=== PATIENT | female | born 1945 | race Caucasian/White ===

== ENCOUNTER 2020-03-02 14:51 | Outpatient (REF) | payer MEDICARE, BC, SELFPAY ==
--- NOTE | 2020-03-02 15:00 | MM_ITS ---
EXAMINATION: MM DIAGNOSTIC DIGITAL BREAST TOMOSYNTHESIS, BILATERAL US DIAGNOSTIC ULTRASOUND BREAST, LEFT CLINICAL INFORMATION: 74-year-old with palpable lump upper outer left breast for 2-3 months. Family history breast cancer grandmother and cousin. No prior personal history breast surgery. The lifetime risk of breast cancer based on the Tyrer-Cuzick Model is 7%. COMPARISON: Mammography: 01/25/2017; outside mammography 02/04/2015, 02/04/2013 ([facility]). TECHNIQUE: Digital breast tomosynthesis is performed in both the craniocaudal and mediolateral oblique views along with computer-aided detection (CAD). Synthesized 2D images are generated from the tomosynthesis. Symptom marker placed on left. Ultrasound left breast is targeted to the area of clinical concern upper outer quadrant. Grayscale imaging and color Doppler are performed without and with harmonics. Additional imaging left axilla also included. FINDINGS: The breasts are heterogeneously dense, which may obscure small masses (ACR BI-RADS breast composition Category c). There is subtle architectural changes upper outer quadrant left breast in the area of clinical concern noted by the patient. Some mild skin retraction is also present. The remainder the left breast is unremarkable. No abnormal calcifications. The axilla is unremarkable. The right breast has chronic nodular asymmetry posterior 1:00 position similar to prior exams dating back to 2012. There is no developing density, interval mass, or architectural abnormality. No abnormal calcifications. Ultrasound left breast demonstrates irregular hypoechoic area 2:00 position mid upper outer quadrant measuring at least 2.8 x 1.6 cm and showing strong posterior acoustic shadowing. This corresponds to the area of both clinical concern and on mammography. Additional imaging left axilla shows no lymphadenopathy. Results are discussed with the patient at time of visit. Ultrasound-guided core biopsy left breast mass is recommended. Results and recommendation are called to office medical records analyst ([place]) for Dr. Neumann on 03/02/2020. MM/MM diagnostic mammo BI IMPRESSION: 1. Left: Architectural abnormality upper outer quadrant with ultrasound correlate corresponding to palpable fullness. 2. Right: No significant changes from prior studies. ASSESSMENT: BI-RADS 4: Suspicious RECOMMENDATION: Ultrasound-guided core biopsy left breast mass. This patient's information was entered into a reminder system with a target due date for their next mammogram.
== END 2020-03-02 14:52 | disposition home or self-care (01) ==
LOC: HO.MAMMO 14:51
PROVIDERS: PCP Internal Medicine; Visit Provider Internal Medicine
DX: N63.21 Unspecified lump in the left breast, upper outer quadrant (principal); Z85.3 Personal history of malignant neoplasm of breast
CPT/HCPCS: 76641; 77066

== ENCOUNTER 2020-03-02 14:51 | Outpatient (REF) | payer MEDICARE, BC, SELFPAY | END 2020-03-02 14:52 | disposition home or self-care (01) | LOC: HO.MAMMO 14:51 | PROVIDERS: PCP Internal Medicine; Visit Provider Internal Medicine | DX: Z13.89 Encounter for screening for other disorder (principal) ==

== ENCOUNTER → 2020-03-09 08:52 | Outpatient (BNVA) | payer MEDICARE, BC, SELFPAY | PROVIDERS: PCP Internal Medicine; Visit Provider Surgery | DX: N63.21 Unspecified lump in the left breast, upper outer quadrant (principal); R92.8 Other abnormal and inconclusive findings on diagnostic imaging of breast | CPT/HCPCS: 99202 ==

== ENCOUNTER 2020-03-10 09:40 | Outpatient (REF) | payer MEDICARE, BC, SELFPAY ==
--- NOTE | 2020-03-10 | US_ITS ---
PROCEDURE: US GUIDED BREAST BIOPSY, LEFT CLINICAL INFORMATION: Palpable mass COMPARISON: February 01, 2020 and January 25, 2017 PROCEDURAL DETAILS: The details of the procedure, as well as the risks, benefits, and alternatives to the procedure were explained to the patient in detail and all of her questions were answered, after which written informed consent was obtained. Site and side were confirmed. Prior to the procedure, sonography revealed hypoechoic lesion approximately 2:00 position 7 cm from the nipple with distal sound shadowing. A time-out was performed, the lesion intended for biopsy was targeted, and the skin of the left breast was then prepped and draped in the usual sterile fashion. Using sonographic guidance, sterile technique, and 1% lidocaine without epinephrine for local anesthesia, multiple automated core biopsies were obtained through the targeted area with a 14G spring loaded Achieve core biopsy device. There was real-time confirmation of appropriate needle passage. Sampling was documented. At the completion of tissue sampling, a single butterfly-shaped metallic clip was deposited at the biopsy site. There was no evidence of immediate complication. SPECIMEN: An appropriate sample was obtained. DIGITAL POST-PROCEDURE MAMMOGRAPHY: Breast density: The tissue is extremely dense, which lowers the sensitivity of mammography. BI-RADS version 5, category D. There are no new mammographic findings demonstrated. The postprocedure 2-view direct digital mammogram reveals satisfactory positioning of the biopsy clip. Clip lies about the superior medial aspect of the spiculated mass. The patient tolerated the procedure well and, after assuring adequate hemostasis, was discharged in good condition after reviewing postbiopsy breast care instructions. Final pathology results are pending. US/US breast ndl core biopsy LT IMPRESSION: 1. No immediate complication from ultrasound-guided percutaneous biopsy left breast. 2. Ultrasound was used to localize and guide marker clip placement. 3. The 2-view direct digital postprocedure mammogram reveals satisfactory positioning of the biopsy clip. 4. Final pathology results are pending. A separate report with final recommendations will be issued once these results are made available.
== END 2020-03-10 09:41 | disposition home or self-care (01) ==
LOC: HO.MAMMO 09:40
PROVIDERS: PCP Internal Medicine; Visit Provider Surgery
DX: N63.21 Unspecified lump in the left breast, upper outer quadrant (principal); R92.8 Other abnormal and inconclusive findings on diagnostic imaging of breast
CPT/HCPCS: 19083; 77065; 88305; 88341; 88342; 88360

== ENCOUNTER → 2020-03-16 10:36 | Outpatient (BNVA) | payer MEDICARE, BC, SELFPAY | PROVIDERS: PCP Internal Medicine; Visit Provider Surgery | DX: C50.919 Malignant neoplasm of unspecified site of unspecified female breast (principal) | CPT/HCPCS: 99212 ==

== ENCOUNTER 2020-03-21 10:51 | Outpatient (REF) | payer MEDICARE, BC, SELFPAY | END 2020-03-21 10:52 | disposition home or self-care (01) | LOC: HO.LAB 10:51 | PROVIDERS: Visit Provider Hospitalist | DX: R30.0 Dysuria (principal) | CPT/HCPCS: 87086; 87088; 87186 ==

== ENCOUNTER 2020-04-07 06:55 | Day surgery (SDC) | payer MEDICARE, BC, SELFPAY ==
[2020-03-30 13:39] VITALS: BMI 21.0
--- NOTE | 2020-04-05 14:28 | P.CONAN_ITS ---
Documented by User: Azra Benavidez 04/05/20 14:31 HPI - Anesthesia Eval Consult details Narrative: 74yo F for L Breast Biopsy Needle Localization [place] Node PMFSH Past Medical History Medical History Breast mass, left Depression Fecal incontinence Goiter, nodular History of alcohol dependence History of shingles Hoarseness Hx: UTI (urinary tract infection) Hyperlipidemia Lab test negative for COVID-19 virus Mammogram declined Osteoporosis Seizures Family History Family History Father Pulmonary fibrosis HTN (hypertension) CAD (coronary artery disease) Mother CAD (coronary artery disease) HTN (hypertension) COPD (chronic obstructive pulmonary disease) Pancreatitis Maternal Grandmother History of breast cancer Family/Other History of breast cancer Surgical History Surgical History History of cataract surgery History of colonoscopy History of foot surgery History of tonsillectomy History of tubal ligation Social History Social History Are you a primary manager home healthcare to a significant other at home: No Do you presently have visiting nurse or other home services: No Alcohol intake: former Smoking Status: Former smoker Smoked in Last 30 Days: No Smoking Quit Date: age 37 Use of substances other than those prescribed or required for medical reasons: No Advance Directives Information Provided: No Recently lost weight without trying: No Meds Allergies Allergy/AdvReac Type Severity Reaction Status Date / Time procaine [From Novocain] Allergy Intermediate Swelling Verified 03/30/20 14:22 Sulfa (Sulfonamide Allergy Intermediate Itching Verified 03/30/20 14:22 Antibiotics) Home Medications Medication Instructions Recorded Confirmed Type fluoxetine 10 mg capsule 10 mg PO DAILY 01/20/20 03/30/20 History fluoxetine 20 mg capsule 20 mg PO DAILY 01/20/20 03/30/20 History flu vacc [id number](65yr up)-PF 240 ml IM 03/21/20 History mcg/0.7 mL intramuscular syringe Exam Exam Date and Time: April 05, 2020 1428 Height,Weight and Vital Signs: Height 5 ft 3 in Weight 53.977 kg Pertinent Lab Results Pertinent Lab Results: Laboratory Tests 12/16/19 12/16/19 08:58 08:58 WBC 7.1 Hgb 12.4 Hct 38.0 Plt Count 336 Sodium 138 Potassium 3.9 Chloride 104 BUN 30 H Creatinine 0.71 Assessment and Plan Assessment Anesthesia Assessment: Chart Reviewed Documented by User: Kamar Ocasio 04/07/20 11:24 [facility] Past Medical History Medical History Breast mass, left Depression Fecal incontinence Goiter, nodular History of alcohol dependence History of shingles Hoarseness Hx: UTI (urinary tract infection) Hyperlipidemia Lab test negative for COVID-19 virus Mammogram declined Osteoporosis Seizures Family History Family History Father Pulmonary fibrosis HTN (hypertension) CAD (coronary artery disease) Mother CAD (coronary artery disease) HTN (hypertension) COPD (chronic obstructive pulmonary disease) Pancreatitis Maternal Grandmother History of breast cancer Family/Other History of breast cancer Family history of problems with anesthesia: No Surgical History Surgical History History of cataract surgery History of colonoscopy History of foot surgery History of tonsillectomy History of tubal ligation History of Problems with Anesthesia: No Social History Social History Are you a primary manager home healthcare to a significant other at home: No Do you presently have visiting nurse or other home services: No Alcohol intake: former Smoking Status: Former smoker Smoked in Last 30 Days: No Smoking Quit Date: age 37 Use of substances other than those prescribed or required for medical reasons: No Advance Directives Information Provided: No Recently lost weight without trying: No Meds Allergies Allergy/AdvReac Type Severity Reaction Status Date / Time procaine [From Novocain] Allergy Intermediate Swelling Verified 03/30/20 14:22 Sulfa (Sulfonamide Allergy Intermediate Itching Verified 03/30/20 14:22 Antibiotics) Home Medications Medication Instructions Recorded Confirmed Type fluoxetine 10 mg capsule 10 mg PO DAILY 01/20/20 03/30/20 History fluoxetine 20 mg capsule 20 mg PO DAILY 01/20/20 03/30/20 History flu vacc [id number](65yr up)-PF 240 ml IM 03/21/20 History mcg/0.7 mL intramuscular syringe Exam Airway Mallampati Class: I Neck ROM: Full Loose/Missing/Broken Teeth: Yes Heart: ok Lungs: ok Assessment and Plan Assessment Anesthesia Assessment: Anesthesia Plan Discussed and Chart Reviewed Final Anesthetic Review NPO: Yes ASA Class: III Final Preanesthetic Review: No Changes in Pt Med Stat, Meds/Allgs Chart Reviewed, Consent Obtained/Reviewed and Anes Risks/Benef Reviewed Patient Risk: Intermediate Procedure Risk: Low Anesthetic Plan Anesthetic Plan: GA and Agree w/ Assess. and Plan Disposition: Standard PACU
--- NOTE | 2020-04-07 | NM_ITS ---
EXAMINATION: NM LYMPH SCINTIGRAPHY CLINICAL INFORMATION: Left breast invasive ductal carcinoma. COMPARISON: None. TECHNIQUE: Following explaining left breast scintigraphy procedure, benefits and risks, a written consent was obtained. Patient was placed supine and 4% lidocaine cream was applied half an hour before the procedure. The area was then cleaned in an antiseptic manner with alcohol solution. 0.5 mCi of 99m technetium lymphoSeek divided in 4 equal doses was injected in 4 the quadrants around left breast areola with imaging obtained approximately 30 minutes later. Patient tolerated the procedure extremely well. FINDINGS: There is normal expected activity in 4 quadrants around the left breast. A solitary sentinel node is seen in the left anterior axilla. No additional abnormal activity seen. NM/NM sentinel node w imaging IMPRESSION: Solitary sentinel node seen in the left anterior axilla on left breast lymphoscintigraphy.
--- NOTE | 2020-04-07 | MM_ITS ---
EXAMINATION: MM GUIDED NEEDLE LOCALIZATION BREAST, LEFT MM NEEDLE LOCALIZATION SPECIMEN BREAST, LEFT CLINICAL INFORMATION: Left breast cancer. COMPARISON: 03/10/2020 and studies dating back to 02/04/2013. TECHNIQUE NEEDLE LOC: Proper informed consent is obtained from the patient after discussion of the procedure, potential risks and complications, and alternatives including declining the procedure today. Patient was given an opportunity for questions. The patient appeared to understand. The patient consented to the procedure and signed the consent form. GUIDANCE: Ultrasound APPROACH: Superior lateral. TARGET: Spiculated mass. ANESTHESIA: Lidocaine 1%: 2 mL. LOCALIZATION MARKER: [place] [facility]. 7 cm long The skin is prepped and local anesthesia administered. Real-time ultrasound imaging was performed for needle positioning through the targeted mass. The wire is hooked into position. [place] needle protector placed. The patient tolerated the procedure well and had no immediate complication. Two-view left breast mammogram performed post require placement in craniocaudal and 90-degree mediolateral views. The needle and hookwire are seen to be adjacent to the marker clip from previous biopsy and is through the spiculated portion of the mass. The breasts are heterogeneously dense (ACR BI-RADS breast density composition category C). TECHNIQUE SPECIMEN RADIOGRAPH: Imaging of the excised specimen is performed using digital mammography in 1 view. FINDINGS SPECIMEN RADIOGRAPH: The specimen shows the needle and hookwire are delivered intact. The biopsy clip marker and mass are identified in the specimen. Results were called to Dr. David Scott in the operating room at the time of imaging. MM/MM diagnostic mammo unilat LT IMPRESSION: 1. Status post left breast needle localization with wire hooked into position. 2. Postoperative specimen radiograph obtained.
[2020-04-07 07:45] VITALS: BP 118/70; PULSE 60; RESP 16; TEMP 36.7; O2SAT 98
[2020-04-07] MEDS: ceFAZolin Sodium/Dextrose,Iso 2 GM/50 ML PIGGYBACK IV (07:59)
[2020-04-07] MEDS: Lidocaine 4 % Cream KIT 1 APPL TOPICAL (07:59)
[2020-04-07] MEDS: Lactated Ringers 1,000 ML 100 ML IVCONT (08:00)
--- NOTE | 2020-04-07 08:09 | US_ITS ---
EXAMINATION: MM GUIDED NEEDLE LOCALIZATION BREAST, LEFT MM NEEDLE LOCALIZATION SPECIMEN BREAST, LEFT CLINICAL INFORMATION: Left breast cancer. COMPARISON: 03/10/2020 and studies dating back to 02/04/2013. TECHNIQUE NEEDLE LOC: Proper informed consent is obtained from the patient after discussion of the procedure, potential risks and complications, and alternatives including declining the procedure today. Patient was given an opportunity for questions. The patient appeared to understand. The patient consented to the procedure and signed the consent form. GUIDANCE: Ultrasound APPROACH: Superior lateral. TARGET: Spiculated mass. ANESTHESIA: Lidocaine 1%: 2 mL. LOCALIZATION MARKER: [place] Mammal[facility]. 7 cm long The skin is prepped and local anesthesia administered. Real-time ultrasound imaging was performed for needle positioning through the targeted mass. The wire is hooked into position. [place] needle protector placed. The patient tolerated the procedure well and had no immediate complication. Two-view left breast mammogram performed post require placement in craniocaudal and 90-degree mediolateral views. The needle and hookwire are seen to be adjacent to the marker clip from previous biopsy and is through the spiculated portion of the mass. The breasts are heterogeneously dense (ACR BI-RADS breast density composition category C). TECHNIQUE SPECIMEN RADIOGRAPH: Imaging of the excised specimen is performed using digital mammography in 1 view. FINDINGS SPECIMEN RADIOGRAPH: The specimen shows the needle and hookwire are delivered intact. The biopsy clip marker and mass are identified in the specimen. Results were called to Dr. David Scott in the operating room at the time of imaging. US/US breast needle loc LT IMPRESSION: 1. Status post left breast needle localization with wire hooked into position. 2. Postoperative specimen radiograph obtained.
--- NOTE | 2020-04-07 08:53 | MHC.SHP ---
Pre-Procedural Eval Section A The patient is an INPATIENT: No Changes since office visit: Yes Patient answered all questions; No Cold of Flu in the past 2 weeks, No New Medical Problems and No Changes in Medication The History & Physical has been completed within 30 days and I have reviewed it.: Yes Section B Chief Complaint: left breast ca Allergies: Allergies Allergy/AdvReac Type Severity Reaction Status Date / Time procaine [From Novocain] Allergy Intermediate Swelling Verified 03/30/20 14:22 Sulfa (Sulfonamide Allergy Intermediate Itching Verified 03/30/20 14:22 Antibiotics) Plan Diagnosis/Plan: Unchanged I have reviewed the history and physical and performed a pertinent physical examination on my patient. No changes have occurred unless specified.
--- NOTE | 2020-04-07 13:06 | P.BOP_ITS ---
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
--- NOTE | 2020-04-07 13:08 | P.OP_ITS ---
Operative Note Operative Note Date of Service: 04/07/20 Narrative: Preoperative diagnosis: Invasive ductal carcinoma left breast with lobular features Postoperative diagnosis: Same Procedure: Left breast lumpectomy with needle localization, sentinel node biopsy Surgeon: David Scott MD Metallurgical Inspector: Nava Gray Anesthesia: General LMA Indications for procedure: Patient was found to have a palpable mass in the upper outer quadrant on self examination. Subsequent mammogram and ultrasound confirmed a suspicious spiculated mass in the upper outer quadrant corresponding to the palpable mass. She underwent a ultrasound-guided core biopsy which confirmed invasive ductal carcinoma with lobular features. She presents now for left breast lumpectomy with needle localization, sentinel node biopsy. Operative findings: A large palpable masses noted in the upper outer quadrant measuring at least 3 cm corresponding to the site of needle localization. A single lymph node or cluster of lymph nodes was found in the high left axilla with radio activity of 191 counts sent as sentinel node 1. No other activity was noted following removal of this node. No other palpable nodes were identified. Specimen: Left breast lumpectomy, sentinel node 1., additional axillary contents. Estimated blood loss: 10 mL Complications: None Operative details: Patient was brought to the OR and placed in a supine position. After administering general anesthesia the patient's left breast was prepped with ChloraPrep and draped in sterile fashion. A surgical time-out was called and consent confirmed. Patient received preoperative antibiotics and Venodyne boots were in place. Local anesthesia consisting of 0.75% Sensorcaine was infiltrated in a curvilinear fashion emanating from the needle which was placed in the upper outer quadrant of the left breast. Incision was then made to include the needle track with a 15 blade. Incision was carried down through subcutaneous tissue. Superior and inferior skin flaps were then created with electrocautery. Beginning superiorly dissection was continued around the palpable mass to the chest wall including pectoralis fascia. Dissection was then continued medially again around the localizing needle down to chest wall. Inferior dissection was then performed dissecting around the palpable mass and localizing wire down to chest wall. The needle was then raised in the posterior dissection performed off the chest wall. Specimen was sent to pathology for further examination. Gamma probe was then used to localize area of radio activity in the left axilla. No activity was noted in the supraclavicular location. Using the same incision in the left upper outer quadrant access was gained to the left axilla. Blunt dissection was used to enter clavipectoral fascia in the axilla exam for palpable nodes. A single palpable node was identified high in the axilla. This was grasped using a [place] clamp. Gamma probe was used to identify the sentinel node which corresponded to the palpable node. Using electrocautery this node was excised. This was sent as sentinel node 1. Additional scanning with the gamma probe revealed no further radio activity. No further palpable nodes were identified. Wounds were irrigated with saline solution and suctioned dry. Wounds were checked for hemostasis. Deep breast tissue was closed using interrupted 3-0 Polysorb sutures. Superficial breast tissue was also reapproximated using interrupted 3 0 Polysorb sutures. Dermis was closed using interrupted 3-0 Polysorb sutures. Skin was then closed using a running subcuticular 4 0 Polysorb suture. Steri-Strips 4 x 4 gauze and Tegaderm were then applied. The patient tolerated the procedure well. Sponge, instrument, needle counts reported as correct. The patient was transferred to PACU in stable condition. Breast [place] Node Biopsy Substrate(s) used for sentinel node biopsy in the non-neoadjuvant setting: Radiotracer Substrate(s) used for sentinel node biopsy in the neoadjuvant setting: N/A All colored nodes or non-colored nodes present at the end of a dye filled lymphatic channel were removed, if dye was used as the substrate for localization: N/A All significantly radioactive nodes were removed, if radionuclide was used as the substrate for localization: Yes All palpably suspicious nodes were removed, if present: Yes If clips were placed in pathology-involved nodes, those nodes were identified and removed: N/A General Surg. - Synoptic Notes Breast [place] Node Biopsy Substrate(s) used for sentinel node biopsy in the non-neoadjuvant setting: Rad iotracer Substrate(s) used for sentinel node biopsy in the neoadjuvant setting: N/A All colored nodes or non-colored nodes present at the end of a dye filled lympha tic channel were removed, if dye was used as the substrate for localization: N/A All significantly radioactive nodes were removed, if radionuclide was used as the substrate for localization: Yes All palpably suspicious nodes were removed, if present: Yes If clips were placed in pathology-involved nodes, those nodes were identified and removed: N/A
[2020-04-07 13:14] VITALS: BP 129/64; PULSE 89; RESP 16; TEMP 36.3; O2SAT 100
[2020-04-07 13:19] VITALS: BP 142/68; PULSE 77; RESP 16; O2SAT 100
[2020-04-07 13:24] VITALS: BP 126/64; PULSE 76; RESP 16; O2SAT 100
[2020-04-07 13:29] VITALS: BP 118/49; PULSE 76; RESP 16; O2SAT 100
[2020-04-07 13:44] VITALS: BP 127/66; PULSE 70; RESP 16; TEMP 36.1; O2SAT 99
[2020-04-07] MEDS: Acetaminophen 325 MG TABLET 650 MG PO (13:51)
== END 2020-04-07 14:26 | disposition home or self-care (01) ==
PROVIDERS: PCP Internal Medicine; Visit Provider Surgery
PROC: (CPT 19301; principal; 2020-04-07 11:00)
PROC: (CPT 19301; 2020-04-07 11:00)
DX: C50.412 Malignant neoplasm of upper-outer quadrant of left female breast (principal); C77.3 Secondary and unspecified malignant neoplasm of axilla and upper limb lymph nodes; Z17.0 Estrogen receptor positive status [ER+]; F32.9 Major depressive disorder, single episode, unspecified; M81.0 Age-related osteoporosis without current pathological fracture; R49.0 Dysphonia; Z79.899 Other long term (current) drug therapy; Z88.2 Allergy status to sulfonamides; Z86.19 Personal history of other infectious and parasitic diseases; Z87.891 Personal history of nicotine dependence; Z88.8 Allergy status to other drugs, medicaments and biological substances
CPT/HCPCS: 19301; 38525; 19285; 77065; 78195; 88305; 88307; 88329; 88342; 88360; A4648; A9520; J0461; J0690; J3010

== ENCOUNTER → 2020-04-15 09:09 | Outpatient (BNVA) | payer MEDICARE, BC, SELFPAY | PROVIDERS: PCP Internal Medicine; Visit Provider Surgery | DX: C50.912 Malignant neoplasm of unspecified site of left female breast (principal) | CPT/HCPCS: 99212 ==

== ENCOUNTER → 2020-04-29 10:52 | Outpatient (BNVA) | payer MEDICARE, BC, SELFPAY | PROVIDERS: PCP Internal Medicine; Visit Provider Surgery | DX: C50.912 Malignant neoplasm of unspecified site of left female breast (principal) | CPT/HCPCS: 99212 ==

== ENCOUNTER 2020-05-09 06:42 | Day surgery (SDC) | payer MEDICARE, BC, SELFPAY ==
--- NOTE | 2020-05-05 12:37 | HO.ANESPROP2 ---
Documented by User: Azra Benavidez 05/05/20 12:41 HPI - Anesthesia Eval Consult details Narrative: 74yo F for Axillary Node Dissection s/p breast bx and needle loc with GA-LMA 3 on 04/07/20 [facility] Past Medical History Medical History Breast mass, left Depression Fecal incontinence Goiter, nodular History of alcohol dependence History of shingles Hoarseness Hx: UTI (urinary tract infection) Hyperlipidemia Lab test negative for COVID-19 virus Mammogram declined Osteoporosis Seizures Family History Family History Father Pulmonary fibrosis HTN (hypertension) CAD (coronary artery disease) Mother CAD (coronary artery disease) HTN (hypertension) COPD (chronic obstructive pulmonary disease) Pancreatitis Maternal Grandmother History of breast cancer Family/Other History of breast cancer Surgical History Surgical History History of cataract surgery History of colonoscopy History of foot surgery History of tonsillectomy History of tubal ligation Social History Social History Alcohol intake: former Smoking Status: Former smoker Use of substances other than those prescribed or required for medical reasons: No Advance Directives: No Advance Directives Information Provided: Yes Advance Directives on File: No Meds Allergies Allergy/AdvReac Type Severity Reaction Status Date / Time procaine [From Novocain] Allergy Intermediate Swelling Verified 05/09/20 07:17 Sulfa (Sulfonamide Allergy Intermediate Itching Verified 05/09/20 07:17 Antibiotics) Home Medications Medication Instructions Recorded Confirmed Type fluoxetine 10 mg capsule 10 mg PO DAILY 01/20/20 04/29/20 History fluoxetine 20 mg capsule 20 mg PO DAILY 01/20/20 04/29/20 History flu vacc [id number](65yr up)-PF 240 ml IM 03/21/20 04/29/20 History mcg/0.7 mL intramuscular syringe Exam Exam Date and Time: May 05, 2020 1237 Pertinent Lab Results Pertinent Lab Results: Laboratory Tests 12/16/19 12/16/19 08:58 08:58 WBC 7.1 Hgb 12.4 Hct 38.0 Plt Count 336 Sodium 138 Potassium 3.9 Chloride 104 BUN 30 H Creatinine 0.71 Assessment and Plan Assessment Anesthesia Assessment: Chart Reviewed Documented by User: Tejinder Jerry 05/09/20 08:37 PMFSH Past Medical History Medical History Breast mass, left Depression Fecal incontinence Goiter, nodular History of alcohol dependence History of shingles Hoarseness Hx: UTI (urinary tract infection) Hyperlipidemia Lab test negative for COVID-19 virus Mammogram declined Osteoporosis Seizures Family History Family History Father Pulmonary fibrosis HTN (hypertension) CAD (coronary artery disease) Mother CAD (coronary artery disease) HTN (hypertension) COPD (chronic obstructive pulmonary disease) Pancreatitis Maternal Grandmother History of breast cancer Family/Other History of breast cancer Surgical History Surgical History History of cataract surgery History of colonoscopy History of foot surgery History of tonsillectomy History of tubal ligation Social History Social History Alcohol intake: former Smoking Status: Former smoker Use of substances other than those prescribed or required for medical reasons: No Advance Directives: No Advance Directives Information Provided: Yes Advance Directives on File: No Meds Allergies Allergy/AdvReac Type Severity Reaction Status Date / Time procaine [From Novocain] Allergy Intermediate Swelling Verified 05/09/20 07:17 Sulfa (Sulfonamide Allergy Intermediate Itching Verified 05/09/20 07:17 Antibiotics) Home Medications Medication Instructions Recorded Confirmed Type fluoxetine 10 mg capsule 10 mg PO DAILY 01/20/20 04/29/20 History fluoxetine 20 mg capsule 20 mg PO DAILY 01/20/20 04/29/20 History flu vacc [id number](65yr up)-PF 240 ml IM 03/21/20 04/29/20 History mcg/0.7 mL intramuscular syringe Exam Airway Mallampati Class: II TM Dist: >3cm Neck ROM: Full Partial: Upper and Lower
[2020-05-09] VITALS (8 sets, daily range): BP systolic 117–144; BP diastolic 64–77; PULSE 68–80; RESP 15–18; TEMP 36.6–37.4; O2SAT 96–100; BMI 22.1
--- NOTE | 2020-05-09 07:12 | MHC.SHP ---
Pre-Procedural Eval Section A The patient is an INPATIENT: No Changes since office visit: Yes Patient answered all questions; No Cold of Flu in the past 2 weeks, No New Medical Problems and No Changes in Medication The History & Physical has been completed within 30 days and I have reviewed it.: Yes Section B Chief Complaint: Left Breat Invasive Ductal Carcinoma Allergies: Allergies Allergy/AdvReac Type Severity Reaction Status Date / Time procaine [From Novocain] Allergy Intermediate Swelling Verified 03/30/20 14:22 Sulfa (Sulfonamide Allergy Intermediate Itching Verified 03/30/20 14:22 Antibiotics) Plan Diagnosis/Plan: Unchanged I have reviewed the history and physical and performed a pertinent physical examination on my patient. No changes have occurred unless specified.
[2020-05-09] MEDS: Lactated Ringers 1,000 ML 100 ML IVCONT (07:35)
--- NOTE | 2020-05-09 09:21 | P.CONAN_ITS ---
[facility] Active Problems Active Problems: All Active Problems (Updated 04/15/20 @ 10:04 by David quiñonez MD) Abnormal mammogram of left breast (Acute) Invasive ductal carcinoma of breast (Acute) Dysuria (Acute) Acute sinusitis (Acute) Breast mass, left (Acute) Mammogram declined (Acute) Fecal incontinence (Acute) Hyperlipidemia (Acute) Hoarseness (Acute) Past Medical History Medical History Breast mass, left Depression Fecal incontinence Goiter, nodular History of alcohol dependence History of shingles Hoarseness Hx: UTI (urinary tract infection) Hyperlipidemia Lab test negative for COVID-19 virus Mammogram declined Osteoporosis Seizures Family History Family History Father Pulmonary fibrosis HTN (hypertension) CAD (coronary artery disease) Mother CAD (coronary artery disease) HTN (hypertension) COPD (chronic obstructive pulmonary disease) Pancreatitis Maternal Grandmother History of breast cancer Family/Other History of breast cancer Surgical History Surgical History History of cataract surgery History of colonoscopy History of foot surgery History of tonsillectomy History of tubal ligation Social History Social History Alcohol intake: former Smoking Status: Former smoker Use of substances other than those prescribed or required for medical reasons: No Advance Directives: No Advance Directives Information Provided: Yes Advance Directives on File: No Meds Allergies Allergy/AdvReac Type Severity Reaction Status Date / Time procaine [From Novocain] Allergy Intermediate Swelling Verified 05/09/20 07:17 Sulfa (Sulfonamide Allergy Intermediate Itching Verified 05/09/20 07:17 Antibiotics) Home Medications Medication Instructions Recorded Confirmed Type fluoxetine 10 mg capsule 10 mg PO DAILY 01/20/20 04/29/20 History fluoxetine 20 mg capsule 20 mg PO DAILY 01/20/20 04/29/20 History flu vacc [id number](65yr up)-PF 240 ml IM 03/21/20 04/29/20 History mcg/0.7 mL intramuscular syringe Exam Exam Date and Time: May 09, 2020920 Height,Weight and Vital Signs: Height 5 ft 3 in Weight 56.699 kg Last Vital Signs Temp 99.4 F 05/09/20 07:18 Pulse 68 05/09/20 07:18 Resp 16 05/09/20 07:18 BP 117/72 05/09/20 07:18 Pulse Ox 97 05/09/20 07:18 Airway Mallampati Class: II TM Dist: >3cm Neck ROM: Full Partial: Upper and Lower
--- NOTE | 2020-05-09 10:33 | PM.OP ---
Brief Operative Note Date of Service: 05/09/20 Pre-op diagnosis: Left breast invasive ductal carcinoma Post-op diagnosis: same Procedure: Wider excision left breast carcinoma, left axillary node dissection Implants: None Surgeon: David Scott MD Anesthesia: GLMA Structures Assembler: Nava Gray Estimated blood loss (mL): 10 Pathology: other (Wider excision left breast carcinoma, left axillary node dissection) Condition: stable Disposition: PACU
--- NOTE | 2020-05-09 10:34 | P.OP_ITS ---
Operative Note Operative Note Date of Service: 05/09/20 Narrative: Preoperative diagnosis: Left breast invasive ductal carcinoma Postoperative diagnosis: Same Procedure: Wider excision left breast carcinoma, left axillary node dissection Surgeon: David Scott MD Director Business: Nava Gray PA-C Anesthesia: General LMA Indications for procedure: 74-year-old female presenting with a palpable mass in the left breast at the upper outer quadrant status post ultrasound-guided core biopsy which revealed invasive ductal carcinoma. She subsequently underwent left breast lumpectomy with sentinel node biopsy. Patient was found to have a positive superior margin. A single sentinel node was positive for malignancy. She presents now for wider excision of the superior margin as well as a left axillary node dissection. Operative findings: Patient was found to have postoperative changes in the left breast consistent with a prior lumpectomy. Definite tumor was encountered during the procedure. Specimen was marked with a short suture on the superior margin long suture on the lateral margin and loop suture on the posterior margin. Several enlarged lymph nodes were noted during the axillary dissection Specimen: Wider excision left breast carcinoma; left axillary node dissection Estimated blood loss: 10 mL Complications: None Drains: None Procedure details: Patient was brought to the OR placed in a supine position. After administering general anesthesia the patient's left breast and axilla were prepped with ChloraPrep and draped in a sterile fashion. A surgical time-out was called the consent confirmed. Patient received preoperative antibiotics and Venodyne boots were in place. Local consisting of 0.25% Sensorcaine with epinephrine was infiltrated at both the breast and axillary compartment. Previous incision in the upper outer quadrant was encountered. A transversely oriented elliptical incision was made around the previous incision. The incision was angled superiorly well beyond the palpable scar tissue from the previous biopsy. Dissection was continued from medial to lateral along the superior margin continuing posteriorly along the pectoralis muscle. The previous biopsy cavity was encountered during the posterior dissection. Additional tissue from the inferior margin was included in the specimen. Specimen was marked as noted above and sent to pathology for routine evaluation. Attention was then directed to the axilla. A curvilinear incision was made at about the level of the hairline in the left axilla and carried out through subcutaneous tissue passed clavipectoral fashion into the axillary node compartment. Dissection was continued superiorly to the pectoralis major muscle and inferiorly to the latissimus Dorsi muscle. Dissection was continued superiorly towards the axillary vein. Level 1 nodes were then dissected free leaving a rim of lymphatic tissue along the axillary vein. The long thoracic and thoracodorsal nerves were identified and preserved. The level 2 lymph nodes were then included in the specimen as well. No other palpable nodes could be identified in level 3. The specimen was removed and sent to pathology for further examination. Hemostasis was assured using free ties of 3-0 Polysorb suture. Wounds were irrigated and suctioned dry. Breast wounds were also irrigated and suctioned dry. Additional local anesthesia was infiltrated at this time. Clavipectoral fascia was reapproximated using interrupted 3-0 Polysorb sutures. Dermis was reapproximated using interrupted 3-0 Polysorb sutures. Skin was closed using a running subcuticular 4-0 Polysorb suture. Deep breast tissue was reapproximated using interrupted 3-0 Polysorb sutures. Dermis was reapproximated using interrupted 3-0 Polysorb sutures. Skin was then closed using a running subcuticular 4 0 Polysorb suture. Sterile dressings were then applied. A breast binder was also applied at this time. The patient tolerated the procedure well. Sponge, instrument, needle counts reported as correct. The patient was transferred to PACU in stable condition. Breast Axillary Dissection Resection was performed within the boundaries of the axillary vein, chest wall (serratus anterior), and latissimus dorsi: Yes The long thoracic and thoracodorsal nerves were spared during dissection: Yes Attempts were made to spare the intercostobrachial nerves during dissection if possible: Yes If one or more level III nodes is/are removed, then document why: n/a General Surg. - Synoptic Notes Breast Axillary Dissection Resection was performed within the boundaries of the axillary vein, chest wall (serratus anterior), and latissimus dorsi: Yes The long thoracic and thoracodorsal nerves were spared during dissection: Yes Attempts were made to spare the intercostobrachial nerves during dissection if possible: Yes If one or more level III nodes is/are removed, then document why: n/a
[2020-05-09] MEDS: Acetaminophen 325 MG TABLET 975 MG PO (11:30)
== END 2020-05-09 12:28 | disposition home or self-care (01) ==
PROVIDERS: PCP Internal Medicine; Visit Provider Surgery
PROC: (CPT 19302; principal; 2020-05-09 08:30)
DX: C50.412 Malignant neoplasm of upper-outer quadrant of left female breast (principal); C77.9 Secondary and unspecified malignant neoplasm of lymph node, unspecified; Z88.2 Allergy status to sulfonamides; Z88.4 Allergy status to anesthetic agent
CPT/HCPCS: 19302; 88307; J0690; J1100; J2250; J2405; J3010

== ENCOUNTER → 2020-05-17 09:35 | Outpatient (BNVA) | payer MEDICARE, BC, SELFPAY | PROVIDERS: PCP Internal Medicine; Visit Provider Surgery | DX: C50.912 Malignant neoplasm of unspecified site of left female breast (principal) | CPT/HCPCS: 99212 ==

== ENCOUNTER → 2020-05-24 09:28 | Outpatient (BNVA) | payer MEDICARE, BC, SELFPAY | PROVIDERS: PCP Internal Medicine; Visit Provider Surgery | DX: C50.912 Malignant neoplasm of unspecified site of left female breast (principal) | CPT/HCPCS: 99212 ==

== ENCOUNTER → 2020-05-25 10:47 | Outpatient (BNV) | payer MEDICARE, BC, SELFPAY | PROVIDERS: PCP Internal Medicine; Referring Provider Surgery; Visit Provider Internal Medicine | DX: C50.412 Malignant neoplasm of upper-outer quadrant of left female breast (principal); M81.0 Age-related osteoporosis without current pathological fracture | CPT/HCPCS: 99204; 99214 ==

== ENCOUNTER 2020-05-31 16:14 | Outpatient (REF) | payer MEDICARE, BC, SELFPAY ==
--- NOTE | ~2020-05-31 | US_ITS ---
EXAMINATION: US THYROID CLINICAL INFORMATION: Nontoxic single thyroid nodule. COMPARISON: Ultrasound soft tissue head/neck thyroid dated 02/04/2017. TECHNIQUE: Linear transducer grayscale and color Doppler examination with attention to the region of the thyroid. FINDINGS: SIZE: Measurements of the thyroid lobes and nodules are given in sagittal, anteroposterior and transverse dimensions respectively. Right Thyroid Lobe: 5.4 x 0.8 x 1.4 cm, volume 3.3 mL. Previously 4.5 x 1.5 x 1.3 cm, volume 4.6 mL. Parenchyma: The gland echotexture is homogeneous. Thyroid vascularity is normal. Left Thyroid Lobe: 4.1 x 1.5 x 2.0 cm, volume 6.4 mL. Previously 4.2 x 1.9 x 1.9 cm, volume 8.0 mL. Parenchyma: The gland echotexture is homogeneous. Thyroid vascularity is normal. Isthmus: 0.2 cm in maximum AP dimension. Previously 0.2 cm. Estimated total number of nodules greater than or equal to 1 cm: 2. Cracker Off nodules are described as follows: 1. Location: Left mid. Size: 2.4 x 1.2 x 1.7 cm, volume 2.6 mL. Previously: 2.4 x 1.2 x 1.7 cm, volume 2.6 mL. Nodule characteristics: Composition: Solid (2). Echogenicity: Isoechoic (1). Shape: Not taller than wide (0). Margins: Ill-defined (0). Echogenic Foci: None (0). ACR TI-RADS total points: 3 ACR TI-RADS category: 3 Significant change in size (>/= 20% in 2 dimensions and minimal increase of 2 mm or 50% or greater increase in volume): No Change in features: Stable, less vascular. Change in ACR TI-RADS risk category: No 2. Location: Left inferior. Size: 1.0 x 0.9 x 0.8 cm, volume 0.4 mL. Previously: 1.1 x 0.9 x 1.1 cm, volume 0.6 mL. Nodule characteristics: Composition: Solid (2). Echogenicity: Isoechoic (1). Shape: Not taller than wide (0). Margins: Ill-defined (0). Echogenic Foci: None (0). ACR TI-RADS total points: 3 ACR TI-RADS category: 3 Significant change in size (>/= 20% in 2 dimensions and minimal increase of 2 mm or 50% or greater increase in volume): None Change in features: None Change in ACR TI-RADS risk category: None NODES: No lymphadenopathy is seen in the tissue surrounding the thyroid gland. US/US thyroid IMPRESSION: Stable left thyroid nodules. The largest nodule in midpole stable in size but less vascular than compared to previous study. Recommend continued follow-up. ACR TI-RADS RECOMMENDATION REFERENCE: Ultrasound-guided fine-needle aspiration, followup ultrasound, no further follow up. * TR1 (0 point) and TR 2 (2 points): No FNA or follow up * TR3 (3 points): FNA if more than or equal to 2.5 cm in maximum dimension, followup ultrasound in 1, 3 and 5 years if 1.5 to 2.4 cm in maximum dimension. * TR4 (4-6 points): FNA if more than or equal to 1.5 cm in maximum dimension, followup ultrasound in 1, 2, 3 and 5 years if 1 to 1.4 cm in maximum dimension. * TR5 (more than or equal to 7 points): FNA if more than or equal to 1 cm in maximum dimension, followup ultrasound every year for 5 years if 0.5 to 0.9 cm in maximum dimension. * TR3, TR4 or TR5 nodules that are below the size threshold for follow up receive no follow up.
== END 2020-05-31 16:15 | disposition home or self-care (01) ==
LOC: HO.US 16:14
PROVIDERS: Visit Provider Internal Medicine
DX: E04.1 Nontoxic single thyroid nodule (principal)
CPT/HCPCS: 76536

== ENCOUNTER → 2020-06-02 13:07 | Outpatient (BNVA) | payer MEDICARE, BC, SELFPAY | PROVIDERS: PCP Internal Medicine; Visit Provider Surgery | DX: C50.912 Malignant neoplasm of unspecified site of left female breast (principal) | CPT/HCPCS: 99212 ==

== ENCOUNTER → 2020-06-21 11:03 | Outpatient (BNVA) | payer MEDICARE, BC, SELFPAY | PROVIDERS: PCP Internal Medicine; Visit Provider Surgery | DX: C50.912 Malignant neoplasm of unspecified site of left female breast (principal) | CPT/HCPCS: 99212 ==

== ENCOUNTER 2020-07-25 08:52 | Outpatient (REF) | payer MEDICARE, BC, SELFPAY ==
[2020-07-25 09:20] LABS: COVID-19 Test Negative (Negative)
== END 2020-07-25 08:53 | disposition home or self-care (01) ==
LOC: HO.LAB 08:52
PROVIDERS: Visit Provider Internal Medicine
DX: Z20.822 Contact with and (suspected) exposure to COVID-19 (principal)
CPT/HCPCS: 36415; 87635; C9803

== ENCOUNTER → 2020-08-09 14:47 | Outpatient (BNVA) | payer MEDICARE, BC, SELFPAY | PROVIDERS: PCP Internal Medicine; Visit Provider Surgery | DX: C50.912 Malignant neoplasm of unspecified site of left female breast (principal) | CPT/HCPCS: 10160; 99212 ==

== ENCOUNTER 2020-09-19 08:49 | Outpatient (REF) | payer MEDICARE, BC, SELFPAY ==
--- NOTE | ~2020-09-19 | US_ITS ---
EXAMINATION: US VENOUS ULTRASOUND WITH DOPPLER LOWER EXTREMITY, LEFT CLINICAL INFORMATION: Swelling COMPARISON: None TECHNIQUE: Ultrasound of the deep veins is performed from the hip to the calf with compression sonography and color and pulse Doppler assessment. Spectral analysis with color-flow imaging is performed. FINDINGS: There is normal venous compression and respiratory variation and augmented flow. The visualized common femoral vein, superficial femoral vein, profunda femoral vein, popliteal vein, and the trifurcation region shows no evidence of deep venous thrombosis. There is no significant popliteal fossa cyst. US/US venous duplex LE LT IMPRESSION: No DVT demonstrated in the left lower extremity.
== END 2020-09-19 08:50 | disposition home or self-care (01) ==
LOC: HO.US 08:49
PROVIDERS: PCP Internal Medicine; Visit Provider Internal Medicine
DX: R60.0 Localized edema (principal); M79.89 Other specified soft tissue disorders
CPT/HCPCS: 93971

== ENCOUNTER → 2020-09-20 10:03 | Outpatient (BNVA) | payer MEDICARE, BC, SELFPAY | PROVIDERS: PCP Internal Medicine; Referring Provider Internal Medicine; Visit Provider Surgery | DX: C50.912 Malignant neoplasm of unspecified site of left female breast (principal) | CPT/HCPCS: 99212 ==

== ENCOUNTER 2020-10-19 09:20 | Outpatient (REF) | payer MEDICARE, BC, SELFPAY ==
--- NOTE | ~2020-10-19 | XR_ITS ---
EXAMINATION: XR SHOULDER, RIGHT XR HUMERUS, RIGHT CLINICAL INFORMATION: Pain shoulder, upper extremity. COMPARISON: None TECHNIQUE: Right shoulder is imaged in 4 views. The right humerus is imaged in 2 views. FINDINGS: The right shoulder shows no fracture or dislocation or destructive process. The glenohumeral joint is unremarkable. The acromioclavicular alignment is normal. There are no visible rotator cuff calcifications. The right humerus shows no fracture or dislocation. No periostitis. No destructive process. XR/XR shoulder RT min 2V IMPRESSION: Unremarkable right shoulder and right humerus.
--- NOTE | ~2020-10-19 | XR_ITS ---
EXAMINATION: XR SHOULDER, RIGHT XR HUMERUS, RIGHT CLINICAL INFORMATION: Pain shoulder, upper extremity. COMPARISON: None TECHNIQUE: Right shoulder is imaged in 4 views. The right humerus is imaged in 2 views. FINDINGS: The right shoulder shows no fracture or dislocation or destructive process. The glenohumeral joint is unremarkable. The acromioclavicular alignment is normal. There are no visible rotator cuff calcifications. The right humerus shows no fracture or dislocation. No periostitis. No destructive process. XR/XR humerus RT IMPRESSION: Unremarkable right shoulder and right humerus.
== END 2020-10-19 09:21 | disposition home or self-care (01) ==
LOC: HO.XRAY 09:20
PROVIDERS: Visit Provider Internal Medicine
DX: R52 Pain, unspecified (principal)
CPT/HCPCS: 73030; 73060

== ENCOUNTER 2020-11-16 13:30 | Outpatient (REF) | payer MEDICARE, BC, SELFPAY ==
--- NOTE | ~2020-11-16 | MM_ITS ---
EXAMINATION: BONE DENSITOMETRY CLINICAL INDICATION: Osteoporosis. COMPARISON: None (current study represents initial baseline exam). TECHNIQUE: Using a [employer] DXA System (software version: 13.1) manufactured by [employer], dual-energy x-ray absorptiometry was performed of the lumbar spine and left hip. The images are of good technical quality. Summary results are attached. FINDINGS: AP SPINE L1-L4: BMD 0.712 g/cm2, Z-score -1.8, T-score -3.9, osteoporosis. LEFT FEMUR, NECK: BMD 0.730 g/cm2, Z-score -0.2, T-score -2.2, osteopenia. LEFT FEMUR, TOTAL: BMD 0.733 g/cm2, Z-score -0.3, T-score -2.2, osteopenia. IDENTIFIED RISK FACTORS: Osteoporosis, menopause. HISTORY OF FRACTURE: None listed. MEDICATIONS: Calcium supplements or multivitamin, vitamin D. MM/XR DEXA axial skeleton IMPRESSION: 1. DIAGNOSIS: Osteoporosis based on the lowest T-score value of -3.9 in the lumbar spine applying World Health Organization criteria. 2. 10-YEAR FRACTURE RISK PREDICTION, FRAX: According to the guidelines, FRAX calculation should only be performed on patients in the osteopenia bone density category. Therefore, FRAX was not performed on this patient. 3. Treatment Recommendations: NOF guidelines recommend consideration for treatment in postmenopausal women and men age 50 and older presenting with the following: -A hip or vertebral (clinical or morphometric) fracture. -T-score less than or equal to -2.5 at the femoral neck or spine after appropriate evaluation to exclude secondary causes. -Low bone mass at the hip or spine and a 10-year fracture probability by FRAX of greater than or equal to 3% for hip fracture or greater than or equal to 20% for major osteoporotic fracture based on the [place] adapted WHO algorithm. 4. Other Recommendations: All treatment decisions require clinical judgment and consideration of individual patient factors, including patient preferences, comorbidities, previous drug use, risk factors not captured in the FRAX model (e.g. frailty, falls, vitamin D deficiency, increased bone turnover, interval significant decline in bone density) and possible under or overestimation of fracture risk by FRAX. Additional medical evaluation for secondary cause of low bone mineral density may be appropriate. FUTURE SCAN RECOMMENDATION: People with diagnosed cases of osteoporosis or at high risk for fracture should have regular bone mineral density tests. For patients eligible for Medicare, routine testing is allowed once every 2 years. The testing frequency can be increased to one year for patients who have rapidly progressing disease, those who are receiving or discontinuing medical therapy to restore bone mass, or have additional risk factors.
== END 2020-11-16 13:31 | disposition home or self-care (01) ==
LOC: HO.MAMMO 13:30
PROVIDERS: Visit Provider Internal Medicine
DX: M81.0 Age-related osteoporosis without current pathological fracture (principal); Z78.0 Asymptomatic menopausal state; Z79.899 Other long term (current) drug therapy
CPT/HCPCS: 77080

== ENCOUNTER → 2020-12-15 10:43 | Outpatient (BNVA) | payer MEDICARE, BC, SELFPAY | PROVIDERS: PCP Internal Medicine; Referring Provider Internal Medicine; Visit Provider Surgery | DX: C50.912 Malignant neoplasm of unspecified site of left female breast (principal) | CPT/HCPCS: 99212 ==

== ENCOUNTER 2020-12-26 15:52 | Outpatient (REF) | payer MEDICARE, BC, SELFPAY ==
[2020-12-26 17:07] LABS: Appearance Urine CLEAR; Color Urine YELLOW; Glucose Urine UA NEG (NEG); Leukocyte Esterase Urine 3+ (NEG); Nitrite Urine NEG (NEG); PH 7.5 (5.0-8.0); Specific Gravity - Urine <= 1.005 (1.005-1.025); UACC Culture Trigger YES; Urine Blood 2+ (NEG); Urine Ketones NEG (NEG); Urine Protein NEG (NEG-TRACE)
[2020-12-26 17:25] LABS: RBC Urine 0-2 /HPF (0)
[2020-12-26 17:26] LABS: Bacteria Urine 2+ /LPF; Squamous Epithelial Cell Urine TRACE /LPF
== END 2020-12-26 15:53 | disposition home or self-care (01) ==
LOC: HO.LAB 15:52
PROVIDERS: PCP Internal Medicine; Visit Provider Internal Medicine
DX: R30.0 Dysuria (principal)
CPT/HCPCS: 81001; 81003; 87086; 87088; 87186

== ENCOUNTER 2021-03-04 11:45 | Outpatient (REF) | payer MEDICARE, BC, SELFPAY ==
--- NOTE | ~2021-03-04 | XR_ITS ---
EXAMINATION: XR SHOULDER, RIGHT CLINICAL INFORMATION: Right shoulder strain COMPARISON: October 19, 2020 TECHNIQUE: Three views of the right shoulder. FINDINGS: There is no evidence of acute fracture or dislocation of the right shoulder. No evidence of calcific tendinitis. Glenohumeral joint appears unremarkable. No significant abnormality of the acromioclavicular joint is seen. XR/XR shoulder RT min 2V IMPRESSION: No significant right shoulder abnormality appreciated.
== END 2021-03-04 11:46 | disposition home or self-care (01) ==
LOC: HO.HMGCX 11:45
PROVIDERS: Visit Provider Internal Medicine
DX: S43.401D Unspecified sprain of right shoulder joint, subsequent encounter (principal)
CPT/HCPCS: 73030

== ENCOUNTER 2021-03-06 12:13 | Outpatient (REF) | payer MEDICARE, BC, SELFPAY ==
--- NOTE | ~2021-03-06 | MM_ITS ---
EXAMINATION: MM DIAGNOSTIC DIGITAL BREAST TOMOSYNTHESIS, BILATERAL CLINICAL INFORMATION: Status post left lumpectomy for invasive breast cancer 04/07/2020. Due for yearly. COMPARISON: Mammography: 04/07/2020, 03/10/2020, 03/02/2020, outside mammography 12/31/2017 and 12/20/2017 ([facility]) TECHNIQUE: Digital breast tomosynthesis is performed in both the craniocaudal and mediolateral oblique views along with computer-aided detection (CAD). Synthesized 2D images are generated from the tomosynthesis. Additional views left breast are obtained: Exaggerated CC, magnification CC, magnification ML x2. FINDINGS: The breasts are heterogeneously dense, which may obscure small masses (ACR BI-RADS breast composition Category c). There are post therapy changes left breast with mild reduced breast size, scarring posterior upper outer quadrant, surgical clips, and smooth skin thickening. The right breast shows scattered asymmetries similar to prior studies. Neither breast shows significant mass or architectural abnormality or abnormal calcifications. No significant changes. Results are provided to the patient at time of visit by the technologist. MM/MM tomosynthesis diagnostic BI IMPRESSION: No mammographic evidence of malignancy. Post therapy changes left breast. ASSESSMENT: BI-RADS 2: Benign RECOMMENDATION: Annual bilateral mammography. This patient's information was entered into a reminder system with a target due date for their next mammogram.
== END 2021-03-06 12:14 | disposition home or self-care (01) ==
LOC: HO.MAMMO 12:13
PROVIDERS: Visit Provider Surgery
DX: Z85.3 Personal history of malignant neoplasm of breast (principal); Z98.890 Other specified postprocedural states
CPT/HCPCS: 77062; 77066

== ENCOUNTER 2021-03-15 13:12 | Outpatient (REF) | payer MEDICARE, BC, SELFPAY ==
--- NOTE | ~2021-03-15 | US_ITS ---
EXAMINATION: US SCREENING ULTRASOUND BREAST, BILATERAL CLINICAL INFORMATION: Dense breasts on mammography. History left lumpectomy for invasive breast cancer 04/07/2020 with subsequent radiation therapy. COMPARISON: Bilateral digital breast tomosynthesis 03/06/2021. TECHNIQUE: Ultrasound is performed using grayscale imaging and color Doppler. Imaging is performed to include the four quadrants and retroareolar region. Both breasts are imaged. FINDINGS: Right breast: There is no suspicious finding by ultrasound. There is no cystic or solid mass or focal architectural abnormality. Left breast: There is no suspicious finding by ultrasound. There is no cystic or solid mass or focal architectural abnormality. There is mild uniform skin thickening corresponding to the recent mammography and post radiation therapy changes. US/US breast LT complete IMPRESSION: No suspicious findings on screening breast ultrasound. ASSESSMENT: BI-RADS 2: Benign RECOMMENDATION: Annual bilateral mammography. This patient's information was entered into a reminder system with a target due date for their next mammogram.
--- NOTE | ~2021-03-15 | US_ITS ---
EXAMINATION: US SCREENING ULTRASOUND BREAST, BILATERAL CLINICAL INFORMATION: Dense breasts on mammography. History left lumpectomy for invasive breast cancer 04/07/2020 with subsequent radiation therapy. COMPARISON: Bilateral digital breast tomosynthesis 03/06/2021. TECHNIQUE: Ultrasound is performed using grayscale imaging and color Doppler. Imaging is performed to include the four quadrants and retroareolar region. Both breasts are imaged. FINDINGS: Right breast: There is no suspicious finding by ultrasound. There is no cystic or solid mass or focal architectural abnormality. Left breast: There is no suspicious finding by ultrasound. There is no cystic or solid mass or focal architectural abnormality. There is mild uniform skin thickening corresponding to the recent mammography and post radiation therapy changes. US/US breast RT complete IMPRESSION: No suspicious findings on screening breast ultrasound. ASSESSMENT: BI-RADS 2: Benign RECOMMENDATION: Annual bilateral mammography. This patient's information was entered into a reminder system with a target due date for their next mammogram.
== END 2021-03-15 13:13 | disposition home or self-care (01) ==
LOC: HO.MAMMO 13:12
PROVIDERS: Visit Provider Surgery
DX: C50.912 Malignant neoplasm of unspecified site of left female breast (principal); R92.2 Inconclusive mammogram; Z92.3 Personal history of irradiation
CPT/HCPCS: 76641

== ENCOUNTER → 2021-03-21 10:53 | Outpatient (BNVA) | payer MEDICARE, BC, SELFPAY | PROVIDERS: PCP Internal Medicine; Referring Provider Internal Medicine; Visit Provider Surgery | DX: C50.912 Malignant neoplasm of unspecified site of left female breast (principal) | CPT/HCPCS: 99212 ==

== ENCOUNTER 2021-05-05 11:43 | Outpatient (REF) | payer MEDICARE, BC, SELFPAY ==
[2021-05-05 13:46] LABS: MANUAL DIFF FLAG NO
[2021-05-05 13:50] LABS: Basophils Percent Auto 0.7 % (0-2); Eosinophils Absolute Auto 0.1 X10*3/uL (0.0-0.4); Eosinophils Percent Auto 1.8 % (0-4); Hematocrit 37.8 % (37.0-47.0); Hemoglobin 12.4 g/dl (12.0-16.0); Imm Gran Abs Auto 0.02 X10*3/uL (0.00-0.03); Imm Gran Pct Auto 0.4 % (0.0-0.4); Lymphocytes Percent Auto 23.1 % (20-40); Mean Corpuscular HGB Conc 32.8 g/dl (31.0-35.0); Mean Corpuscular Hemoglobin 30.8 pg (27.0-33.0); Mean Corpuscular Volume 93.8 fL (80.0-98.0); Mean Platelet Volume 9.7 fL (9.4-12.3); Monocytes Absolute Auto 0.3 X10*3/uL (0.1-1.2); Monocytes Percent Auto 6.5 % (2-11); Neutrophils Percent Auto 67.5 % (45-73); Platelet Count 242 X10*3/uL (160-400); Red Blood Count 4.03 X10*6/uL (4.20-5.50); Red Cell Distribution Width 13.2 % (11.0-16.0); White Blood Count 4.5 X10*3/uL (4.8-10.8)
[2021-05-05 13:57] LABS: Appearance Urine CLOUDY; Color Urine YELLOW; Glucose Urine UA NEG (NEG); Leukocyte Esterase Urine NEG (NEG); Nitrite Urine NEG (NEG); PH 5.5 (5.0-8.0); Specific Gravity - Urine 1.025 (1.005-1.025); Urine Blood 3+ (NEG); Urine Ketones NEG (NEG); Urine Protein NEG (NEG-TRACE)
[2021-05-05 14:01] LABS: Alanine Aminotransferase 14 U/L (0-31); Albumin Level 4.2 g/dL (3.5-5.0); Alkaline Phosphatase 56 U/L (39-117); Anion Gap 12 (12-20); Aspartate Amino Transferase 23 U/L (5-31); Bilirubin Total 0.6 mg/dL (0.0-1.0); Blood Urea Nitrogen 26 mg/dL (9-16); Carbon Dioxide 28 mmol/L (22-29); Chloride 102 mmol/L (96-108); Cholesterol 240 mg/dL; Estimated Glomerular Filt Rate > 60; Glucose Fasting 103 mg/dL (60-99); HDL Cholesterol 80 mg/dL; LDL Cholesterol Calculated 151 mg/dl; Potassium 3.7 mmol/L (3.3-5.1); Sodium 138 mmol/L (135-145); Total Protein 7.2 g/dL (6.5-8.0); Triglycerides 49 mg/dL
[2021-05-05 14:14] LABS: Amorphous Sediment Urine 4+ /LPF; Calcium Oxalate Crystals Urine 2+ /LPF; WBC Urine 0 /HPF (0-4)
[2021-05-05 14:24] LABS: TSH reflex Free T4 0.81 uIU/mL (0.32-4.0)
== END 2021-05-05 11:44 | disposition home or self-care (01) ==
LOC: HO.HMGCLDS 11:43
PROVIDERS: Visit Provider Internal Medicine
DX: Z00.00 Encounter for general adult medical examination without abnormal findings (principal); R15.9 Full incontinence of feces; Z13.220 Encounter for screening for lipoid disorders; Z13.29 Encounter for screening for other suspected endocrine disorder
CPT/HCPCS: 36415; 80053; 80061; 81001; 84443; 85025

== ENCOUNTER 2021-05-16 13:05 | Outpatient (REF) | payer MEDICARE, BC, SELFPAY ==
--- NOTE | ~2021-05-16 | XR_ITS ---
EXAMINATION: XR CHEST CLINICAL INFORMATION: Malaise. COMPARISON: None TECHNIQUE: 2 views of the chest were obtained. FINDINGS: No significant abnormality is noted involving the heart, lungs, mediastinum, bony thorax or soft tissues. XR/XR chest 2V IMPRESSION: Unremarkable chest examination.
[2021-05-16 14:10] LABS: Hematocrit 37.1 % (37.0-47.0); Hemoglobin 12.2 g/dl (12.0-16.0); Mean Corpuscular HGB Conc 32.9 g/dl (31.0-35.0); Mean Corpuscular Hemoglobin 30.5 pg (27.0-33.0); Mean Corpuscular Volume 92.8 fL (80.0-98.0); Mean Platelet Volume 9.5 fL (9.4-12.3); Platelet Count 278 X10*3/uL (160-400); Red Cell Distribution Width 13.1 % (11.0-16.0)
[2021-05-16 14:37] LABS: Alanine Aminotransferase 10 U/L (0-31); Albumin Level 4.2 g/dL (3.5-5.0); Alkaline Phosphatase 63 U/L (39-117); Anion Gap 11 (12-20); Aspartate Amino Transferase 21 U/L (5-31); Bilirubin Direct 0.2 mg/dL (0.0-0.5); Bilirubin Total 0.6 mg/dL (0.0-1.0); Blood Urea Nitrogen 19 mg/dL (9-16); Calcium 9.1 mg/dL (8.4-10.2); Carbon Dioxide 28 mmol/L (22-29); Chloride 105 mmol/L (96-108); Estimated Glomerular Filt Rate > 60; Glucose Random 106 mg/dL (60-115); Potassium 3.7 mmol/L (3.3-5.1); Sodium 140 mmol/L (135-145); Total Protein 7.1 g/dL (6.5-8.0)
[2021-05-16 14:46] LABS: Erythrocyte Sedimentation Rate 16 MM/HR (0-20)
[2021-05-16 14:59] LABS: Thyroid Stimulating Hormone 1.28 uIU/mL (0.32-4.0)
== END 2021-05-16 13:06 | disposition home or self-care (01) ==
LOC: HO.HMGCX 13:05
PROVIDERS: PCP Internal Medicine; Visit Provider Internal Medicine
DX: R53.81 Other malaise (principal)
CPT/HCPCS: 36415; 71046; 80048; 80076; 84443; 85027; 85652

== ENCOUNTER 2021-06-22 10:00 | Outpatient (RCR) | payer MEDICARE, BC, SELFPAY ==
--- NOTE | 2021-05-17 12:35 | MHC.PT.EP ---
[facility] [place] Office [place] Office [place] Office [address] Piyush Starr [address] [phone] F: [phone] F: [phone] F: [phone] F: [phone] Physical Therapy Plan of Care Date of Evaluation: Date of Surgery: N/A Diagnosis: right shoulder pain Assessment: pt presents to physical therapy with pain, decreased range of motion, decreased strength, impaired functional mobility, and impaired postural awareness. pt is a good candidate for skilled PT due to age, potential remediation of impairments, typical disease/condition progression and prognosis, comorbidities, and motivation. pt would benefit from tailored strengthening and stretching exercise program, functional training, postural re-training, neuromuscular re-education, modalities as needed for pain, equipment safety demonstration. Frequency and Duration: The patient will be seen 2x/wk for 5 wks Short Term Goals: pt will be I w/ HEP to promote self-management of condition. pt will improve R shoulder flexion by 10 degrees to promote ease in reaching for objects in cabinets. pt will improve R shoulder functional internal rotation to at least sacrum to promote ease in washing herself. Building Certifier Goals: pt will report a statistically significant improvement in self-reported outcome measure, SPADI, to promote return to PLOF. pt will improve R shoulder flexion strength by 1 MMT grade to promote ease in carrying and lifting groceries. pt will improve R shoulder external rotation strength by 1 MMT grade to promote ease in shoulder endurance for washing and combing her hair. Treatment Plan: Modalities to reduce pain, spasms and effusion. Manual therapy to restore motion and function. Therapeutic exercise to improve strength and flexibility. Neuromuscular re-education for posture and balance. Therapeutic activities to return to functional activities of daily living. Electronically signed by: Marlen Pena PT, DPT Please sign and return to therapist. Thank you for your referral.
--- NOTE | 2021-07-03 15:05 | MHC.PT.DC ---
[facility] [place] Office [place] Office [place] Office [address] [phone] F: [phone] F: [phone] F: [phone] F: [phone] Physical Therapy Discharge Report Diagnosis: right shoulder pain Date of Surgery: N/A Date of Evaluation: 05/17/21 Date of Discharge: 07/03/21 Treatments to Date: 9 Cancellations to Date: 2 No Shows to Date: 0 Discharge Status: Improved Function Independent with HEP Discharge Summary: Pt has made good progress since SOC. She has improved AROM and strength of R arm (please see objective section for detail). She improved her score on SPADI outcome measure from 49/130 on initial PT evaluation to 17/130 today. Pt is I with her HEP. Pt is being D/C from skilled PT. Pt reports no further questions or concerns for PT at this time. Electronically signed by: Marlen Pena PT, DPT Please sign and return to therapist. Thank you for your referral.
== END 2021-07-03 15:06 | disposition home or self-care (01) ==
LOC: HO.PT 10:00
PROVIDERS: PCP Internal Medicine; Visit Provider Internal Medicine
DX: S43.401A Unspecified sprain of right shoulder joint, initial encounter (principal)
CPT/HCPCS: 97110; 97140; 97150; 97162

== ENCOUNTER → 2021-07-26 10:36 | Outpatient (BNVA) | payer MEDICARE, BC, SELFPAY | PROVIDERS: PCP Internal Medicine; Referring Provider Internal Medicine; Visit Provider Internal Medicine Cardiovascular Disease | DX: R07.9 Chest pain, unspecified (principal); R06.00 Dyspnea, unspecified | CPT/HCPCS: 93005; 99202 ==

== ENCOUNTER → 2021-08-03 07:48 | Outpatient (REF) | payer MEDICARE, BC, SELFPAY ==
--- NOTE | ~2021-08-03 | NM_ITS ---
Exercise Myocardial perfusion study Indication: Chest pain to evaluate for myocardial ischemia Technique: The patient was brought in for an exercise perfusion study on 08/03/2021. Patient performed exercise as per Jef protocol and was injected 25 mCi of sestamibi was given intravenously one target HR was achieved. Images were obtained using the SPECT gamma camera interlaced with the gating device. Images were obtained in supine position. Resting perfusion study was performed on 08/04/2021. Patient was administered 25 mCi of sestamibi intravenously at rest. Images were then obtained in supine position. Images obtained with and without CT attenuation. Total DLP 64 mGy-cm. Images were processed with the software and compared side to side in short axis, horizontal long axis and vertical long axis views. Findings: The stress perfusion study showed non attenuated images show moderately reduced uptake in the distal anterior wall of the LV myocardium. Remainder of the LV myocardium is normally perfused. Attenuation corrected images show some thinning and minimally reduced uptake in the distal anterior wall of the LV myocardium.. The gated study shows normal LV systolic function with calculated LVEF of 68%. LV cavity is normal in size. The gated study shows normal systolic wall thickening and contraction of all segments. There is no transient ischemic dilation. Resting study shows no change in perfusion pattern compared to stress perfusion study. Gating at rest reveals normal systolic wall motion with ejection fraction at 58%. The findings are consistent with no clear reversible defect suggestive of ischemia. Fixed distal anterior wall defect appears to be attenuation artifact given normal wall motion. NM/NM cardiolite stress test Impression: 1. Likely normal myocardial perfusion 2. Gated LVEF is 68% 3. Transient ischemic dilatation not present Stress EKG is equivocal for ischemia
--- NOTE | 2021-08-03 07:51 | CA_ITS ---
Acquisition Time: 2021-08-03 08:01:28 Total Exercise Time: 00:05:01 Test Indications: Chest Pain Medications: FOSAMAX FLUOXETINE LETROZOLE Protocol: ENEDINA Max HR: 142 BPM 96% of Pred: 147 BPM Max BP: 172/072 mmHG Max Work Load: 7.0 METS Exercise stress test with exercise 5 min 1 sec of Enedina protocol, achieving 94% MPHR, with moderate shortness of breath, no chest discomfort, with isolated PAC and one PVC, with normotensive response to exercise, without EKG changes meeting criteria for ischemia, with bordrline ST change in V4-V6. In recovery breathing quickly improved back to normal. Nuclear images pending. Test reviewed with Dr Masters. Referred By: Viral Masters Overread By: RAFFI LOUISE
== END ==
LOC: HO.CARD 07:48
PROVIDERS: PCP Internal Medicine; Visit Provider Internal Medicine Cardiovascular Disease
DX: R07.9 Chest pain, unspecified (principal)
CPT/HCPCS: 78452; 93017; A9500

== ENCOUNTER → 2021-08-08 12:46 | Outpatient (REF) | payer MEDICARE, BC, SELFPAY ==
--- NOTE | 2021-08-08 12:50 | CA_ITS ---
Transthoracic Echocardiogram Patient (Last, First, Middle): Patria Hooks, Gender: Female Date of : 1945 Age: 75 Procedure Date: 08/08/2021 Procedure Type: Transthoracic Echocardiogram Location: OP Height: 157.48 cm Weight: 56.7 kg BSA: 1.57 m2 Heart Rate: bpm BP: 134 / 76 mmHg Cable Reeler: [email or web address] Referring MD: Viral Masters MD Supervisor Nurse: Viral Masters MD Symptoms: R06.00 - Dyspnea, unspecified Study Quality: Good ECG Rhythm: Sinus Conclusions: - 1. Normal LV systolic function with impaired relaxation filling pattern 2. Mildly dilated left atrium 3. Mild aortic regurgitation 3. Normal RV systolic pressure 4. Mildly dilated ascending aorta 5. No pericardial effusion Findings Left Ventricle Normal left ventricular size, thickness, and systolic function. The visually estimated ejection fraction is between 60-65%. Spectral Doppler is indicative of an impaired relaxation filling pattern. E/E prime ratio is between 8 and 15 consistent with indeterminate filling pressures. Right Ventricle Normal right ventricular cavity size and systolic function. Atria The left atrium is mildly dilated. Interatrial shunt cannot be excluded. The right atrium is normal in size. Aortic Valve Normal aortic valve structure and function. There is no aortic valve stenosis. There is mild aortic valve regurgitation. Mitral Valve There is mild anterior and posterior mitral leaflet thickening. There is mild mitral valve regurgitation. There is no mitral valve stenosis. Pulmonic Valve The pulmonic valve was not well visualized. Tricuspid Valve Likely normal tricuspid valve structure and function. There is mild tricuspid valve regurgitation. The right ventricular systolic pressure is normal. The right ventricular systolic pressure is 30 mmHg. Normal right atrial pressure. There is no evidence of pulmonary hypertension. Great Vessels The pulmonary artery was not well visualized. There is mild dilatation of the ascending aorta measuring 3.80 cm. Venous The inferior vena cava is mildly dilated and collapses greater than 50% with inspiration. Pericardium/Pleural There is no evidence of pericardial effusion. Prior Study Comparison No prior study available for comparison. Measurements 2D Linear Measurements IVSd: 0.91 0.6-0.9/0.6-1.0 cm LVIDd: 5.02 3.9-5.3/4.2-5.9 cm LVIDd Index: 3.20 2.4-3.2/2.2-3.1 cm/m2 LVIDs: 2.46 2.0-3.6 cm LVPWd: 0.77 0.7-1.1 cm LA Diam: 2.90 2.7-3.8/3.0-4.0 cm LAIDs Index: 1.85 1.5-2.3 cm/m2 LV Mass: 180.95 67-162/88-224 g LV Mass Index: 115.25 43-95/49-115 g/m2 LVOT Diam: 2.00 3.0+(-)1.3 cm 2D Systolic Function EF 4C: 63.40 >55% EF 2C: 68.10 >55% EF BiP: 64.90 >55% Mitral Valve MV Pk E: 0.73 MV PK A: 0.69 MV Decel Time: 231.00 E/A: 1.10 E'Lateral: 6.74 E'Medial: 4.90 E/E' Med: 14.90 E/E' Lat: 10.80 PHT: 68.00 MVA PHT: 3.24 Decel Wright: 3.15 Aortic Valve AoV Pk Dakota: 1.20 AoV Mn Dakota: 0.90 AoV VTI: 0.31 AoV Pk Grad: 6.00 Aov Mn Grad: 4.00 GLADIS Cont.VTI: 2.24 LVOT LVOT Pk Dakota: 0.88 LVOT Mn Dakota: 0.62 LVOT VTI: 0.22 LVOT Pk Grad: 3.00 LVOT Mn Grad: 2.00 LVOT Diam: 2.00 LVOT Area: 3.14 Diastolic Function MV Pk E: 0.73 MV Pk A: 0.69 E/A: 1.10 E'Medial: 4.90 E/E' Med: 14.90 E' Laterial: 6.74 E/E' Lat: 10.80 Right Ventricle TAPSE (mm): 22.90 TVS' Dakota: 10.90 Tricuspid Valve TR Pk Dakota: 2.33 TR Pk Grad: 22.00 RA Press: 8.00 RVSP: 30.00 Great Vessels Aorta Sinus of Valsalva: 3.26 2.0-3.[address] Ridge: 2.72 1.7-3.4 cm Ao Asc: 3.80 2.1-3.4 cm Ao Arch: 2.90 Updated in Other Vendor System with Status of Final Viral Masters MD electronically signed on 08/09/2021 1:46:37 PM with status of Final
== END ==
LOC: HO.CARD 12:46
PROVIDERS: Visit Provider Internal Medicine Cardiovascular Disease
DX: R07.9 Chest pain, unspecified (principal); R06.00 Dyspnea, unspecified
CPT/HCPCS: 93306; 99202

== ENCOUNTER → 2021-09-12 12:42 | Outpatient (BNVA) | payer MEDICARE, BC, SELFPAY | PROVIDERS: PCP Internal Medicine; Referring Provider Internal Medicine; Visit Provider Internal Medicine Cardiovascular Disease | DX: I77.89 Other specified disorders of arteries and arterioles (principal); E78.5 Hyperlipidemia, unspecified | CPT/HCPCS: 99212 ==

== ENCOUNTER → 2021-09-14 08:25 | Outpatient (BNVA) | payer MEDICARE, BC, SELFPAY | PROVIDERS: PCP Internal Medicine; Visit Provider Internal Medicine Gastroenterology | DX: R15.9 Full incontinence of feces (principal); Z86.19 Personal history of other infectious and parasitic diseases | CPT/HCPCS: 99202 ==

== ENCOUNTER 2021-09-19 09:41 | Outpatient (REF) | payer MEDICARE, BC, SELFPAY ==
[2021-09-19 11:06] LABS: HBS Num1 > 1000.00 mIU/mL (0-7.99); HBc Num1 8.78 S/CO (0.00-0.79); HBsAGNum1 0.25 S/CO (0.00-0.99); Hepatitis B Surface Antigen Negative (Negative); ~HepC Num1 0.06 S/CO (0.00-0.79); ~Hepatitis B Surface Antibody REACTIVE (Nonreactive); ~Hepatitis C Antibody Nonreactive (Nonreactive)
[2021-09-19 11:52] LABS: HBc Num2 8.78 S/CO; Hepatitis B Core Antibody Reactive (Nonreactive)
[2021-09-20 04:04] LABS: Hepatitis A Antibody IgG Nonreactive (Nonreactive); ~Hepatitis A Antibody IgG 0.43 S/CO (0.00-0.99)
[2021-09-26 17:47] LABS: Pancreatic Elastase-1 244 mcg/g
== END 2021-09-19 09:42 | disposition home or self-care (01) ==
LOC: HO.LAB 09:41
PROVIDERS: PCP Internal Medicine; Visit Provider Internal Medicine Gastroenterology
DX: D64.9 Anemia, unspecified (principal); R15.9 Full incontinence of feces; M79.89 Other specified soft tissue disorders; R07.81 Pleurodynia; Z86.19 Personal history of other infectious and parasitic diseases; C50.412 Malignant neoplasm of upper-outer quadrant of left female breast; N60.92 Unspecified benign mammary dysplasia of left breast; M81.0 Age-related osteoporosis without current pathological fracture; Z17.0 Estrogen receptor positive status [ER+]; Z92.21 Personal history of antineoplastic chemotherapy; Z92.3 Personal history of irradiation; Z87.891 Personal history of nicotine dependence; Z79.83 Long term (current) use of bisphosphonates
CPT/HCPCS: 36415; 82656; 86704; 86706; 86708; 86803; 87340; 99212

== ENCOUNTER 2021-09-29 00:54 | Observation (INO) | payer MEDICARE, BC, SELFPAY ==
[2021-09-29] VITALS (10 sets, daily range): BP systolic 101–158; BP diastolic 47–64; PULSE 51–65; RESP 12–18; TEMP 36.6–37.3; O2SAT 96–98; BMI 21.7
--- NOTE | 2021-09-29 | EEG_ITS ---
This is a 16-channel EEG with an EKG lead. The patient is reported awake during the tracing. Background EEG rhythm is 7 to 8 hertz, 5 to 50 microvolt posteriorly, lower amplitude fast anteriorly. Photic stimulation does not produce any significant driving. Hyperventilation was not performed. Cardiac lead did not reveal any significant abnormality. No definite sharp wave spikes or paroxysmal tendency noted. IMPRESSION: Mild slowing that might be age related. Otherwise, no significant abnormality was noted. MD CINDY Deal/ANNETTE / [phone]
--- NOTE | ~2021-09-29 | CT_ITS ---
EXAMINATION: NONCONTRAST HEAD CT NONCONTRAST MAXILLOFACIAL CT NONCONTRAST CERVICAL SPINE CT INDICATION INFORMATION: Fall with loss of consciousness. Left facial injury. COMPARISON: None TECHNIQUE: Separate noncontrast CT examinations of the head, maxillofacial bones, and cervical spine were performed. Coronal and sagittal images were created for each examination at the technologist workstation. This CT examination was performed using dose optimization techniques as appropriate, variously including the following: *Automated exposure control *Adjustment of mA and/or kV according to patient size (this includes techniques or standardized protocols for targeted exams where dose is matched to indication/reason for exam; i.e. extremities or head) *Use of iterative reconstruction technique DLP: 1102 mGy-cm FINDINGS: Head: There is no evidence of acute intracranial hemorrhage or territorial infarction. No abnormal mass effect or midline shift is seen. Davis to white matter differentiation is well preserved. No extra-axial fluid collections are identified. No hydrocephalus. Proportional prominence of the ventricles and sulcal spaces is consistent with mild volume loss. There is no abnormal attenuation within the brain parenchyma. No acute soft tissue abnormality. No calvarial fracture. The mastoid air cells are well aerated. Maxillofacial: There is left periorbital soft tissue swelling. There is a linear lucency in the left frontal bone superior to the lobe as seen on series 18 image [address] . This may represent a vascular channel. No additional evidence of fracture. The pterygoid plates are intact. Lamina papyracea are intact. The nasal bone is intact. The orbital floors are intact. The mandible is intact. The frontal, maxillary, ethmoid, and sphenoid sinuses are well aerated. The uncinate process is normal bilaterally. The infundibula and middle meati are patent. The nasal septum deviates to the right. The mandibular heads are well-seated in the condylar fossa. The orbits demonstrate a normal appearance bilaterally. The globes are intact, and there are no suspicious findings to suggest retrobulbar hemorrhage. Cervical spine: There is anatomic alignment of the vertebral bodies and posterior elements. The atlantoaxial and atlantooccipital articulations are intact. Vertebral body heights are maintained. There is multilevel intervertebral disc space narrowing with endplate osteophyte formation and facet arthropathy. No evidence of acute fracture. No prevertebral soft tissue swelling. Peripheral opacity at the left lung apex may represent pleural thickening.. Heterogeneous appearance of the left thyroid lobe. CT/CT cervical spine wo con IMPRESSION: 1. No acute intracranial finding. 2. No acute fracture or malalignment of the cervical spine. Mild degenerative change. 3. Left periorbital soft tissue swelling. There is a linear lucency of the frontal bone superior to the left orbit which could represent a vascular channel. It is difficult to fully exclude a fracture at this location.
[2021-09-29 01:14] LABS: Basophils Percent Auto 0.1 % (0-2); Eosinophils Percent Auto 0.1 % (0-4); Hematocrit 33.7 % (37.0-47.0); Hemoglobin 11.5 g/dl (12.0-16.0); Imm Gran Abs Auto 0.02 X10*3/uL (0.00-0.03); Imm Gran Pct Auto 0.3 % (0.0-0.4); Lymphocytes Absolute Auto 1.2 X10*3/uL (1.2-4.9); Lymphocytes Percent Auto 15.9 % (20-40); MANUAL DIFF FLAG NO; Mean Corpuscular HGB Conc 34.1 g/dl (31.0-35.0); Mean Corpuscular Hemoglobin 31.5 pg (27.0-33.0); Mean Corpuscular Volume 92.3 fL (80.0-98.0); Mean Platelet Volume 9.4 fL (9.4-12.3); Monocytes Absolute Auto 0.6 X10*3/uL (0.1-1.2); Monocytes Percent Auto 7.4 % (2-11); Neutrophils Absolute Auto 5.7 x10*3/uL (2.0-8.3); Neutrophils Percent Auto 76.2 % (45-73); Platelet Count 209 X10*3/uL (160-400); Red Blood Count 3.65 X10*6/uL (4.20-5.50); White Blood Count 7.4 X10*3/uL (4.8-10.8)
--- NOTE | 2021-09-29 01:17 | ECG_ITS ---
Test Reason : SYNCOPE Blood Pressure : / mmHG Vent. Rate : 058 BPM Atrial Rate : 058 BPM P-R Int : 154 ms QRS Dur : 082 ms QT Int : 422 ms P-R-T Axes : 075 023 095 degrees QTc Int : 414 ms Sinus bradycardia cannot exclude Septal infarct , age undetermined Nonspecific ST and T wave abnormality Lateral leads Abnormal ECG No previous ECGs available Referred By: Eva De Paz Electronically Signed By:HASMUKH WALKER
--- NOTE | 2021-09-29 01:39 | ED_ITS ---
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 First episode around 18:30 patient does not know what happened felt lightheaded and next thing she noticed she was on the floor no significant injury at that time when she woke up she was feeling very tired and sleepy. Second time happened at 05:30 when she woke up from sleep and went to bathroom felt lightheaded again and tried to lay down on the floor and then she passed out when she woke up she noticed bruising over the right eye no tongue bite and again patient was feeling very sleepy and tired afterwards. Patient feels this is different than seizure she used to have when she used to drink alcohol did not have any seizure for a long time since she stop alcohol. Patient denies any chest pain no palpitation Related Data Home Medications Medication Instructions Recorded Confirmed fluoxetine 20 mg capsule 40 mg PO DAILY 01/20/20 09/19/21 multivitamin 1 tab PO DAILY 05/25/20 09/19/21 calcium carb-ergocalciferol (vit 1 tab PO DAILY 09/12/21 09/19/21 D2) 600 mg calcium-200 unit tablet vitamin B12 0.5 mg-folic acid 1 mg 1 tab PO DAILY 09/12/21 09/19/21 tablet Previous Rx's Medication Instructions Recorded letrozole 2.5 mg tablet 2.5 mg PO DAILY #30 tabs 05/30/21 alendronate 70 mg-cholecalciferol 1 tab PO QWEEK #3 tabs 08/15/21 (vitamin D3) 2,800 unit tablet (Fosamax Plus D) atorvastatin 20 mg tablet (Lipitor) 20 mg PO DAILY #30 tabs 09/12/21 bisacodyl 5 mg tablet,delayed 10 mg PO ONCE 2 days #4 tabs 09/14/21 release (Dulcolax (bisacodyl)) polyethylene glycol 3350 17 17 g PO DAILY 1 day #238 grams 09/14/21 gram/dose oral powder (Miralax) psyllium husk 2.6 gram/4.1 gram 1 tbsp PO DAILY 60 days #480 grams 09/14/21 oral powder Allergies Allergy/AdvReac Type Severity Reaction Status Date / Time procaine [From Novocain] Allergy Intermediate Swelling Verified 09/19/21 09:21 Sulfa (Sulfonamide Allergy Intermediate Itching Verified 09/19/21 09:21 Antibiotics) Review of Systems Review of Systems: Yes all other systems are reviewed and are negative [facility] Past Medical History Medical History Annual physical exam Depression Fecal incontinence Goiter, nodular History of alcohol dependence History of shingles Hx: UTI (urinary tract infection) Hyperlipidemia Lab test negative for COVID-19 virus Osteoporosis Seizures Surgical History History of cataract surgery History of colonoscopy History of foot surgery History of lumpectomy of left breast History of tonsillectomy History of tubal ligation Family History Family History Father Pulmonary fibrosis HTN (hypertension) CAD (coronary artery disease) Mother CAD (coronary artery disease) HTN (hypertension) COPD (chronic obstructive pulmonary disease) Pancreatitis Maternal Grandmother History of breast cancer Family/Other History of breast cancer Social History Social History Are you a primary home care attendant to a significant other at home: No Do you presently have visiting nurse or other home services: No Alcohol intake: never Patient Tobacco Use Status: Former Tobacco user Quit Date: 1981 Tobacco use type: Cigarette Cigarette Packs Per Day: 3 Advance Directives: No Physical Exam Vital Signs: Vital Signs: Last Vital Signs Temp 98.1 F 09/29/21 04:05 Pulse 51 09/29/21 04:05 Resp 16 09/29/21 04:05 BP 122/55 L 09/29/21 04:05 Pulse Ox 97 09/29/21 04:05 O2 Del Method 09/29/21 04:05 BMI result Body Mass Index 21.7 Appearance: Alert. Oriented X3. No acute distress. Eyes: PERRLA, No Nystagmus ENT: Pharynx normal. Oral Mucosa moist Neck: Normal inspection. Neck supple. CVS: Normal heart rate and rhythm. Pulses normal. Respiratory: No respiratory distress. Equal air entry bilateral, no wheezing/rales/rhonchi Abdomen: Soft and nontender. Bowel sounds are present, no mass palpable, no CVA tenderness Skin: Skin warm and dry. Normal skin color. Normal skin turgor. Extremities: No lower extremity edema. No calf tenderness Neuro: Oriented X 3. No motor deficit. No sensory deficit.No cerebellar signs , cranial nerves II-XII intact MDM - Fall MDM Narrative Medical decision making narrative: Patient with recurrent syncope episodes 2 episode in 12 hours. History of seizures when she used to drink alcohol not on any medication at this time etiology is not very clear possible she has a coronary event versus complex partial seizure. Will admit patient for observation and further evaluation Medical Records Attestation: I reviewed the patient's medical records. Lab Data Attestation: I reviewed the patient's lab results. Result diagrams: 09/29/21 01:08 09/29/21 01:08 Labs: Lab Results 09/29/21 09/29/21 09/29/21 Range/Units 01:08 01:08 01:08 WBC 7.4 (4.8-10.8) X10*3/uL RBC 3.65 L (4.20-5.50) X10*6/uL Hgb 11.5 L (12.0-16.0) g/dl Hct 33.7 L (37.0-47.0) % MCV 92.3 (80.0-98.0) fL MCH 31.5 (27.0-33.0) pg MCHC 34.1 (31.0-35.0) g/dl RDW 13.0 (11.0-16.0) % Plt Count 209 (160-400) X10*3/uL MPV 9.4 (9.4-12.3) fL Immature Gran % (Auto) 0.3 (0.0-0.4) % Neut % (Auto) 76.2 H (45-73) % Lymph % (Auto) 15.9 L (20-40) % Addison % (Auto) 7.4 (2-11) % Eos % (Auto) 0.1 (0-4) % Baso % (Auto) 0.1 (0-2) % Lymph # (Auto) 1.2 (1.2-4.9) X10*3/uL Addison # (Auto) 0.6 (0.1-1.2) X10*3/uL Eos # (Auto) 0.0 (0.0-0.4) X10*3/uL Baso # (Auto) 0.0 (0.0-0.2) X10*3/uL Abs Immat Gran (auto) 0.02 (0.00-0.03) X10*3/uL Absolute Neuts (auto) 5.7 (2.0-8.3) x10*3/uL Absolute Nucleated RBC 0.000 (0.0-0.012) X10*3/uL Nucleated RBC % (auto) 0.0 (0.0-0.2) /100WBC PT (10.0-13.1) SEC INR (0.9-1.1) APTT (24.1-38.0) SEC D-Dimer High Sensitivty NG/ML Sodium 137 (135-145) mmol/L Potassium 4.0 (3.3-5.1) mmol/L Chloride 103 (96-108) mmol/L Carbon Dioxide 28 (22-29) mmol/L Anion Gap 10 L (12-20) BUN 25 H (9-16) mg/dL Creatinine 0.85 (0.5-1.4) mg/dL Estim Creat Clear Calc 46.6 Estimated GFR > 60 Random Glucose 129 H (60-115) mg/dL Calcium 9.3 (8.4-10.2) mg/dL Total Bilirubin 0.4 (0.0-1.0) mg/dL AST 23 (5-31) U/L ALT 14 (0-31) U/L Alkaline Phosphatase 46 D (39-117) U/L Troponin I High Sens < 3.5 (<3.5-17.0) ng/L Total Protein 7.1 (6.5-8.0) g/dL Albumin 4.5 (3.5-5.0) g/dL COVID-19 (KERLINE) (Negative) COVID-19 Clin Com 07/01/22 07/01/22 Range/Units 01:45 02:31 WBC (4.8-10.8) X10*3/uL RBC (4.20-5.50) X10*6/uL Hgb (12.0-16.0) g/dl Hct (37.0-47.0) % MCV (80.0-98.0) fL MCH (27.0-33.0) pg MCHC (31.0-35.0) g/dl RDW (11.0-16.0) % Plt Count (160-400) X10*3/uL MPV (9.4-12.3) fL Immature Gran % (Auto) (0.0-0.4) % Neut % (Auto) (45-73) % Lymph % (Auto) (20-40) % Addison % (Auto) (2-11) % Eos % (Auto) (0-4) % Baso % (Auto) (0-2) % Lymph # (Auto) (1.2-4.9) X10*3/uL Addison # (Auto) (0.1-1.2) X10*3/uL Eos # (Auto) (0.0-0.4) X10*3/uL Baso # (Auto) (0.0-0.2) X10*3/uL Abs Immat Gran (auto) (0.00-0.03) X10*3/uL Absolute Neuts (auto) (2.0-8.3) x10*3/uL Absolute Nucleated RBC (0.0-0.012) X10*3/uL Nucleated RBC % (auto) (0.0-0.2) /100WBC PT 12.8 (10.0-13.1) SEC INR 1.1 (0.9-1.1) APTT 31.0 (24.1-38.0) SEC D-Dimer High Sensitivty < 150 NG/ML Sodium (135-145) mmol/L Potassium (3.3-5.1) mmol/L Chloride (96-108) mmol/L Carbon Dioxide (22-29) mmol/L Anion Gap (12-20) BUN (9-16) mg/dL Creatinine (0.5-1.4) mg/dL Estim Creat Clear Calc Estimated GFR Random Glucose (60-115) mg/dL Calcium (8.4-10.2) mg/dL Total Bilirubin (0.0-1.0) mg/dL AST (5-31) U/L ALT (0-31) U/L Alkaline Phosphatase (39-117) U/L Troponin I High Sens (<3.5-17.0) ng/L Total Protein (6.5-8.0) g/dL Albumin (3.5-5.0) g/dL COVID-19 (KERLINE) Negative (Negative) COVID-19 Clin Com See Note ECG Data Attestation: I personally reviewed and interpreted this ECG as follows: Interpretation: Sinus bradycardia with heart rate 58 beats per minute poor progression of R-wave in anterior leads normal intervals impression sinus bradycardia Discharge Plan Discharge Clinical Impression: Syncope Patient Disposition: Admitted As Inpatient
[2021-09-29 01:46] LABS: Alanine Aminotransferase 14 U/L (0-31); Albumin Level 4.5 g/dL (3.5-5.0); Alkaline Phosphatase 46 U/L (39-117); Anion Gap 10 (12-20); Aspartate Amino Transferase 23 U/L (5-31); Bilirubin Total 0.4 mg/dL (0.0-1.0); Blood Urea Nitrogen 25 mg/dL (9-16); Calcium 9.3 mg/dL (8.4-10.2); Carbon Dioxide 28 mmol/L (22-29); Chloride 103 mmol/L (96-108); Creatinine Clr Calc Pharmacy 46.6; Estimated Glomerular Filt Rate > 60; Glucose Random 129 mg/dL (60-115); Sodium 137 mmol/L (135-145); Total Protein 7.1 g/dL (6.5-8.0)
[2021-09-29 01:52] LABS: Troponin-I High Sensitivity < 3.5 ng/L (<3.5-17.0)
[2021-09-29 02:00] LABS: INTERNATIONAL NORM RATIO 1.1 (0.9-1.1); Prothrombin Time 12.8 SEC (10.0-13.1)
[2021-09-29 02:02] LABS: D Dimer High Sensitivity < 150 NG/ML
[2021-09-29 03:04] LABS: COVID-19 Test Negative (Negative)
--- NOTE | 2021-09-29 05:35 | P.HPHOSP_ITS ---
History of Present Illness Date of Service: 09/29/21 Chief Complaint: Syncope This is a 75-year-old female with past medical history of seizure disorder 40 years ago, history of breast cancer status post lumpectomy, HLD who presents to the hospital with syncopal episodes. Patient reports that she had 2 episodes of syncope is at home. The initial 1 was at 07:00 yesterday when she was walking to the bathroom, she reports that she passed out, she is not aware for how long, she was wearing her glasses and sustained injury around her left eye. She reports no prodromal symptoms but on waking she felt significantly fatigue and tired. She denies having any chest pain no shortness of breath or palpitations prior to the episode occurring, she denies any dizziness prior to that. She then had a normal day but around 19:00 the episode occurred again where she also passed out while walking. She denies any head injury, once again reports no shortness of breath chest pain or palpitations. No other poor dermal symptoms. On waking up she once again was fatigue and therefore decided to come to the hospital for further evaluation. Patient reports a history of seizure about 40 years ago, felt to be possibly related to alcohol abuse but was labeled as idiopathic. Patient reports that she took antiepileptic medication for 1 year but then stopped it and has not had any seizure episodes for 40 years. She reports no alcohol abuse for 40 years, note patient underwent a cardiac workup for abnormal chest pain as well as EKG showing possible history of septal infarct, she had an exercise stress test as well as an echo done which showed atrial region GERD. Stress test was normal. Patient otherwise reports being in good health, no recent acute illness. Denies any chest pain, no shortness of breath, no abdominal pain nausea or vomiting, no diarrhea constipation, no urinary symptoms and no lower extremity edema. On arrival to the ED patient with dynamic least stable with no significant abnormal vitals Labs are significant for IVC count of 7.4, hemoglobin of 11.5, otherwise unremarkable. CT of the head shows no acute intracranial finding, no acute fracture or malalignment of the cervical spine, left periorbital soft tissue swelling, left periorbital soft tissue swelling, there is a linear lucency of the frontal bone superior to the left orbit which could represent a vascular channel, difficult to fully exclude of fracture at this location. Given the multiple syncopal episodes with no prodromal symptoms patient will be admitted for further evaluation Review of Systems Review of Systems: Yes all other systems are reviewed and are negative [facility] Medical History (Updated 09/29/21 @ 05:46 by Jose Luis Scott MD) Annual physical exam Ascending aorta enlargement Chest pain Depression Fecal incontinence Goiter, nodular History of alcohol dependence History of shingles Hx: UTI (urinary tract infection) Hyperlipidemia Lab test negative for COVID-19 virus Osteoporosis Seizures Family History Father Pulmonary fibrosis HTN (hypertension) CAD (coronary artery disease) Mother CAD (coronary artery disease) HTN (hypertension) COPD (chronic obstructive pulmonary disease) Pancreatitis Maternal Grandmother History of breast cancer Family/Other History of breast cancer Surgical History History of cataract surgery History of colonoscopy History of foot surgery History of lumpectomy of left breast History of tonsillectomy History of tubal ligation Social History Are you a primary manager managed care to a significant other at home: No Do you presently have visiting nurse or other home services: No Alcohol intake: never Patient Tobacco Use Status: Former Tobacco user Quit Date: 1981 Tobacco use type: Cigarette Cigarette Packs Per Day: 3 Advance Directives: No Meds Allergies Allergy/AdvReac Type Severity Reaction Status Date / Time procaine [From Novocain] Allergy Intermediate Swelling Verified 09/19/21 09:21 Sulfa (Sulfonamide Allergy Intermediate Itching Verified 09/19/21 09:21 Antibiotics) Active Medications: Current Medications Acetaminophen (Acetaminophen 325 Mg Tablet) 650 mg PO Q6H PRN PRN Reason: Pain, Mild (Pain Scale 1-3) Sodium Chloride (0.9 % Sodium Chloride Flush 3 Ml Syringe) 3 ml IVFLUSH [facility] Home Medications Medication Instructions Recorded Confirmed Last Taken Type fluoxetine 20 mg capsule 40 mg PO DAILY 01/20/20 09/19/21 05/09/20 06:15 History multivitamin 1 tab PO DAILY 05/25/20 09/19/21 Unknown History calcium carb-ergocalciferol (vit 1 tab PO DAILY 09/12/21 09/19/21 Unknown History D2) 600 mg calcium-200 unit tablet vitamin B12 0.5 mg-folic acid 1 mg 1 tab PO DAILY 09/12/21 09/19/21 Unknown History tablet Physical Exam Vital Signs and Narrative: Vital Signs: Last Vital Signs Temp 98.1 F 09/29/21 04:05 Pulse 51 09/29/21 04:05 Resp 16 09/29/21 04:05 BP 122/55 L 09/29/21 04:05 Pulse Ox 97 09/29/21 04:05 O2 Del Method 09/29/21 04:05 BMI result Body Mass Index 21.7 HEENT: Other: Bruising around the left eye, no nystagmus, no visual defects Neuro: Other: No neurological deficit Results Labs CBC and Chem 7: 09/29/21 01:08 09/29/21 01:08 Labs: Laboratory Results - last 24 hr 09/29/21 09/29/21 09/29/21 01:08 01:08 01:08 MCV 92.3 MCH 31.5 MCHC 34.1 RDW 13.0 Plt Count 209 MPV 9.4 Immature Gran % (Auto) 0.3 Neut % (Auto) 76.2 H Lymph % (Auto) 15.9 L Letcher % (Auto) 7.4 Eos % (Auto) 0.1 Baso % (Auto) 0.1 Lymph # (Auto) 1.2 Letcher # (Auto) 0.6 Eos # (Auto) 0.0 Baso # (Auto) 0.0 Abs Immat Gran (auto) 0.02 Absolute Neuts (auto) 5.7 Absolute Nucleated RBC 0.000 Nucleated RBC % (auto) 0.0 PT INR APTT D-Dimer High Sensitivty Anion Gap 10 L Estim Creat Clear Calc 46.6 Estimated GFR > 60 Random Glucose 129 H Calcium 9.3 Total Bilirubin 0.4 AST 23 ALT 14 Alkaline Phosphatase 46 D Troponin I High Sens < 3.5 Total Protein 7.1 Albumin 4.5 COVID-19 (KERLINE) COVID-19 Clin Com 09/29/21 09/29/21 01:45 02:31 MCV MCH MCHC RDW Plt Count MPV Immature Gran % (Auto) Neut % (Auto) Lymph % (Auto) Letcher % (Auto) Eos % (Auto) Baso % (Auto) Lymph # (Auto) Letcher # (Auto) Eos # (Auto) Baso # (Auto) Abs Immat Gran (auto) Absolute Neuts (auto) Absolute Nucleated RBC Nucleated RBC % (auto) PT 12.8 INR 1.1 APTT 31.0 D-Dimer High Sensitivty < 150 Anion Gap Estim Creat Clear Calc Estimated GFR Random Glucose Calcium Total Bilirubin AST ALT Alkaline Phosphatase Troponin I High Sens Total Protein Albumin COVID-19 (KERLINE) Negative COVID-19 Clin Com See Note Imaging Radiologist's Impressions: Impressions Cervical Spine CT 09/29/21 01:40 IMPRESSION: 1. No acute intracranial finding. 2. No acute fracture or malalignment of the cervical spine. Mild degenerative change. 3. Left periorbital soft tissue swelling. There is a linear lucency of the frontal bone superior to the left orbit which could represent a vascular channel. It is difficult to fully exclude a fracture at this location. Face CT 09/29/21 01:40 IMPRESSION: 1. No acute intracranial finding. 2. No acute fracture or malalignment of the cervical spine. Mild degenerative change. 3. Left periorbital soft tissue swelling. There is a linear lucency of the frontal bone superior to the left orbit which could represent a vascular channel. It is difficult to fully exclude a fracture at this location. Head CT 09/29/21 01:40 IMPRESSION: 1. No acute intracranial finding. 2. No acute fracture or malalignment of the cervical spine. Mild degenerative change. 3. Left periorbital soft tissue swelling. There is a linear lucency of the frontal bone superior to the left orbit which could represent a vascular channel. It is difficult to fully exclude a fracture at this location. Assessment and Plan (1) Syncope: Status: Acute Plan 75-year-old female with past medical history of hyperlipidemia, breast cancer, recently diagnosed mild AR who presents to the hospital with syncopal episode # syncope - cardiogenic versus seizure - has history of seizures, but lack of prodromal symptoms cause concern for possible cardiac in etiology - patient did have recent echocardiogram which showed an ejection fraction of 60-65% with impaired relaxation filling pattern, exercise stress test negative - will admit to telemetry - eeg - consult Cardiology for any possible further workup # hyperlipidemia - continue statin DVT prophylaxis: Early ambulation Quality Stroke Does the patient have a stroke diagnosis?: No VTE Prior VTE?: No VTE Risk Level:: Medical - low VTE Device Contraindication: Treatment Not Indicated VTE Drug Contraindication: Treatment Not Indicated
[2021-09-29 06:58] LABS: MANUAL DIFF FLAG NO
[2021-09-29 06:59] LABS: Basophils Percent Auto 0.3 % (0-2); Eosinophils Percent Auto 0.6 % (0-4); Imm Gran Abs Auto 0.03 X10*3/uL (0.00-0.03); Imm Gran Pct Auto 0.5 % (0.0-0.4); Lymphocytes Absolute Auto 1.4 X10*3/uL (1.2-4.9); Lymphocytes Percent Auto 21.7 % (20-40); Mean Corpuscular HGB Conc 33.3 g/dl (31.0-35.0); Mean Corpuscular Hemoglobin 31.3 pg (27.0-33.0); Mean Platelet Volume 10.1 fL (9.4-12.3); Monocytes Absolute Auto 0.6 X10*3/uL (0.1-1.2); Monocytes Percent Auto 9.5 % (2-11); Neutrophils Absolute Auto 4.5 x10*3/uL (2.0-8.3); Neutrophils Percent Auto 67.4 % (45-73); Platelet Count 194 X10*3/uL (160-400); Red Blood Count 3.51 X10*6/uL (4.20-5.50); Red Cell Distribution Width 13.2 % (11.0-16.0); White Blood Count 6.7 X10*3/uL (4.8-10.8)
--- NOTE | 2021-09-29 07:27 | PHA.MEDREC ---
Pharmacy Consult ? Medication Reconciliation Pharmacy has completed the medication reconciliation. Reviewed med rec done by Jamilah Galarza
[2021-09-29 07:39] LABS: Anion Gap 11 (12-20); Blood Urea Nitrogen 21 mg/dL (9-16); Calcium 8.6 mg/dL (8.4-10.2); Carbon Dioxide 26 mmol/L (22-29); Chloride 107 mmol/L (96-108); Creatinine Clr Calc Pharmacy 53.6; Estimated Glomerular Filt Rate > 60; Glucose Random 106 mg/dL (60-115); Potassium 3.4 mmol/L (3.3-5.1); Sodium 141 mmol/L (135-145)
[2021-09-29] MEDS: 0.9 % Sodium Chloride Flush 3 ML SYRINGE IVFLUSH ×2 (08:08→17:28)
--- NOTE | 2021-09-29 08:09 | PC.NURSE ---
pt resting in bed. denies complaints. pt requesting dc. awaiting hospitalist.
--- NOTE | 2021-09-29 10:05 | P.CONCA_ITS ---
History of Present Illness History of Present Illness Date of Service: 09/29/21 Chief complaint: Syncope Narrative: This is a cardiology consultation regarding syncope. She has had 2 episodes of syncope in the last day or so. 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 Then she thinks she got up and not sure what happened after that. She found herself on the floor. She thinks she might have fallen forward. There is a bruise on the left eye. However there is also a 2nd fall in the later part of his today when she was talking to her landlady. No specific provoking factors and she thinks she just fell. No angina or shortness of breath or any other cardiac complaints. Recently saw Dr. Masters in the office and was diagnosed with mild ascending aortic enlargement and mild aortic regurgitation. Otherwise no other cardiac issues in the past. Remote history of seizure about 40 some years ago. Review of Systems Review of Systems: Yes all other systems are reviewed and are negative Constitutional: Constitutional: Reports as per HPI Eyes: Eyes: Reports as per HPI ENT: Reports as per HPI Cardiovascular: Cardiovascular: Reports as per HPI, Denies acrocyanosis, Denies cool extremities, Denies chest pain, Denies leg edema, Reports lightheadedness, Reports Loss of Consciousness, Denies palpitations and Denies dyspnea Respiratory: Respiratory: Reports as per HPI, Reports no additional respiratory complaints and Denies dyspnea Gastrointestinal: Gastrointestinal: Reports as per HPI and Reports no additional gastrointestinal complaints Genitourinary: Genitourinary: Reports as per HPI Musculoskeletal: Musculoskeletal: Reports no additional musculoskeletal compl aints and Reports as per HPI Integumentary/Breasts: Skin/Breast: Reports system reviewed and no additional complaints, except as docu Neurologic: Reports system reviewed and no additional complaints, except as documented and Reports as per HPI Psychiatric: Psychiatric: Reports no additional psychiatric complaints and Reports as per HPI Endocrine: Endocrine: Reports no additional endocrine complaints, Reports as per HPI and Denies palpitations Hematologic/Lymphatic: Hematologic/Lymphatic: Reports no additional hematologic/lymphatic complaints and Reports as per HPI Allergic/Immunologic: Allergic/Immunologic: Reports no additional allergic/immunologic complaints and Reports as per HPI [facility] Past Medical History Medical History (Updated 09/29/21 @ 10:08 by Trey Ku MD) Annual physical exam Ascending aorta enlargement Chest pain Depression Fecal incontinence Goiter, nodular History of alcohol dependence History of shingles Hx: UTI (urinary tract infection) Hyperlipidemia Lab test negative for COVID-19 virus Osteoporosis Seizures Family History Family History Father Pulmonary fibrosis HTN (hypertension) CAD (coronary artery disease) Mother CAD (coronary artery disease) HTN (hypertension) COPD (chronic obstructive pulmonary disease) Pancreatitis Maternal Grandmother History of breast cancer Family/Other History of breast cancer Surgical History Surgical History History of cataract surgery History of colonoscopy History of foot surgery History of lumpectomy of left breast History of tonsillectomy History of tubal ligation Social History Social History Are you a primary healthcare manager to a significant other at home: No Do you presently have visiting nurse or other home services: No Alcohol intake: never Patient Tobacco Use Status: Former Tobacco user Quit Date: 1981 Tobacco use type: Cigarette Cigarette Packs Per Day: 3 Advance Directives: No Meds Allergies Allergy/AdvReac Type Severity Reaction Status Date / Time procaine [From Novocain] Allergy Intermediate Swelling Verified 09/19/21 09:21 Sulfa (Sulfonamide Allergy Intermediate Itching Verified 09/19/21 09:21 Antibiotics) Active Medications: Current Medications Acetaminophen (Acetaminophen 325 Mg Tablet) 650 mg PO Q6H PRN PRN Reason: Pain, Mild (Pain Scale 1-3) Sodium Chloride (0.9 % Sodium Chloride Flush 3 Ml Syringe) 3 [facility] Last Admin: 09/29/21 08:08 Dose: 3 ml Home Medications Medication Instructions Recorded Confirmed Last Taken Type fluoxetine 20 mg capsule 40 mg PO DAILY 01/20/20 09/29/21 05/09/20 06:15 History multivitamin 1 tab PO DAILY 05/25/20 09/29/21 Unknown History calcium carb-ergocalciferol (vit 1 tab PO DAILY 09/12/21 09/29/21 Unknown History D2) 600 mg calcium-200 unit tablet vitamin B12 0.5 mg-folic acid 1 mg 1 tab PO DAILY 09/12/21 09/29/21 Unknown History tablet Physical Exam Vital Signs: Vital Signs: Last Vital Signs Temp 98.4 F 09/29/21 07:43 Pulse 55 09/29/21 07:43 Resp 12 09/29/21 07:43 BP 118/49 L 09/29/21 07:43 Pulse Ox 98 09/29/21 07:43 O2 Del Method 09/29/21 07:43 BMI result Body Mass Index 21.7 Const: General: comfortable and no acute distress Orie ntation/consciousness: patient oriented x3 HEENT: Other: Unremarkable Head: Yes normal to inspection Neck: Neck: Yes normal visual inspection Chest: Chest palpation & inspection: normal inspection of the chest Resp: Auscultation: clear to auscultation bilaterally Cardio: Palpation: normal PMI Heart sounds: S1 normal heart sound present, S2 normal heart sound present, no gallops, no murmurs and no rubs GI: Palpation (GI): Soft to palpation Back/Spine/Pelvis: Other: unremarkable Skin: General skin exam: no rashes or lesions noted Neuro: General: patient oriented x3 Extrem: General: Yes normal to inspection Psych: Mental Status: mental status grossly normal Objective Labs and Meds Result diagrams: 09/29/21 06:52 09/29/21 06:52 Lab results: Laboratory Results - last 24 hr 09/29/21 09/29/21 09/29/21 01:08 01:08 01:08 WBC 7.4 RBC 3.65 L Hgb 11.5 L Hct 33.7 L MCV 92.3 MCH 31.5 MCHC 34.1 RDW 13.0 Plt Count 209 MPV 9.4 Immature Gran % (Auto) 0.3 Neut % (Auto) 76.2 H Lymph % (Auto) 15.9 L Bill[place] % (Auto) 7.4 Eos % (Auto) 0.1 Baso % (Auto) 0.1 Lymph # (Auto) 1.2 [place] # (Auto) 0.6 Eos # (Auto) 0.0 Baso # (Auto) 0.0 Abs Immat Gran (auto) 0.02 Absolute Neuts (auto) 5.7 Absolute Nucleated RBC 0.000 Nucleated RBC % (auto) 0.0 PT INR APTT D-Dimer High Sensitivty Sodium 137 Potassium 4.0 Chloride 103 Carbon Dioxide 28 Anion Gap 10 L BUN 25 H Creatinine 0.85 Estim Creat Clear Calc 46.6 Estimated GFR > 60 Random Glucose 129 H Calcium 9.3 Total Bilirubin 0.4 AST 23 ALT 14 Alkaline Phosphatase 46 D Troponin I High Sens < 3.5 Total Protein 7.1 Albumin 4.5 COVID-19 (KERLINE) COVID-19 Clin Com 09/29/21 09/29/21 09/29/21 01:45 02:31 06:52 WBC 6.7 RBC 3.51 L Hgb 11.0 L Hct 33.0 L MCV 94.0 MCH 31.3 MCHC 33.3 RDW 13.2 Plt Count 194 MPV 10.1 Immature Gran % (Auto) 0.5 H Neut % (Auto) 67.4 Lymph % (Auto) 21.7 Bill[place] % (Auto) 9.5 Eos % (Auto) 0.6 Baso % (Auto) 0.3 Lymph # (Auto) 1.4 Billings # (Auto) 0.6 Eos # (Auto) 0.0 Baso # (Auto) 0.0 Abs Immat Gran (auto) 0.03 Absolute Neuts (auto) 4.5 Absolute Nucleated RBC 0.000 Nucleated RBC % (auto) 0.0 PT 12.8 INR 1.1 APTT 31.0 D-Dimer High Sensitivty < 150 Sodium Potassium Chloride Carbon Dioxide Anion Gap BUN Creatinine Estim Creat Clear Calc Estimated GFR Random Glucose Calcium Total Bilirubin AST ALT Alkaline Phosphatase Troponin I High Sens Total Protein Albumin COVID-19 (KERLINE) Negative COVID-19 Clin Com See Note 09/29/21 06:52 WBC RBC Hgb Hct MCV MCH MCHC RDW Plt Count MPV Immature Gran % (Auto) Neut % (Auto) Lymph % (Auto) Bill[place] % (Auto) Eos % (Auto) Baso % (Auto) Lymph # (Auto) Bill[place] # (Auto) Eos # (Auto) Baso # (Auto) Abs Immat Gran (auto) Absolute Neuts (auto) Absolute Nucleated RBC Nucleated RBC % (auto) PT INR APTT D-Dimer High Sensitivty Sodium 141 Potassium 3.4 Chloride 107 Carbon Dioxide 26 Anion Gap 11 L BUN 21 H Creatinine 0.74 Estim Creat Clear Calc 53.6 Estimated GFR > 60 Random Glucose 106 Calcium 8.6 D Total Bilirubin AST ALT Alkaline Phosphatase Troponin I High Sens Total Protein Albumin COVID-19 (KERLINE) COVID-19 Clin Com ECG Interpretation: EKG noted. Sinus bradycardia at 58/Min; cannot exclude old septal infarct but could be from body habitus; nonspecific changes in the lateral leads. Normal ID/QT; in the telemetry, she has sinus bradycardia but sometimes goes into the 30s. Imaging Radiologist's impression: Impressions Cervical Spine CT 09/29/21 01:40 IMPRESSION: 1. No acute intracranial finding. 2. No acute fracture or malalignment of the cervical spine. Mild degenerative change. 3. Left periorbital soft tissue swelling. There is a linear lucency of the frontal bone superior to the left orbit which could represent a vascular channel. It is difficult to fully exclude a fracture at this location. Face CT 09/29/21 01:40 IMPRESSION: 1. No acute intracranial finding. 2. No acute fracture or malalignment of the cervical spine. Mild degenerative change. 3. Left periorbital soft tissue swelling. There is a linear lucency of the frontal bone superior to the left orbit which could represent a vascular channel. It is difficult to fully exclude a fracture at this location. Head CT 09/29/21 01:40 IMPRESSION: 1. No acute intracranial finding. 2. No acute fracture or malalignment of the cervical spine. Mild degenerative change. 3. Left periorbital soft tissue swelling. There is a linear lucency of the frontal bone superior to the left orbit which could represent a vascular channel. It is difficult to fully exclude a fracture at this location. Assessment and Plan (1) Syncope: Status: Acute (2) Sinus bradycardia: Status: Acute Plan Recent echocardiogram with normal LVEF, 60-65%; mild aortic regurgitation mild ascending aortic dilatation. Recent myocardial perfusion imaging study reported to have likely normal perfusion. High sensitivity troponin less than 3.5. As discussed above, telemetry shows some sinus bradycardia going as much into the 30s but not clear if that is etiology for her syncopal episodes. Recommend monitoring for another 24 hours or so. If she indeed has any symptomatic episodes that we can correlate with significant bradycardia, then possibly candidate for pacemaker placement. If not she will need outpatient Holter or 30 day monitor. Discussed with patient and she is agreeable. Procedures Date of Service Date of Service: 09/29/21
--- NOTE | 2021-09-29 11:03 | MHC.CM.PN ---
Attempted to meet with patient in regards to discharge planning. Nursing care being provided. Will attempt to meet again. Continue to monitor for d/c needs.
--- NOTE | 2021-09-29 16:52 | PM.EVENT ---
Event Note Date of Service: 09/29/21 Event Note: Patient is seen examined-patient came to the hospital after having fall and syncope. Tele shows bradycardia episodes in 30s Physical exam: Unchanged from H&P. Assessment and plan: Coordinated in H&P note In addition cardiology evaluation noted-continue to monitor on tele if continue to have symptomatic episodes then may need pacemaker evaluation.
[2021-09-29 17:44] LABS: Thyroid Stimulating Hormone 1.68 uIU/mL (0.32-4.0)
--- NOTE | 2021-09-29 21:08 | PC.NURSE ---
PATIENT HAD LARGE FIRM BOWEL MOVEMENT .
[2021-09-30] VITALS (9 sets, daily range): BP systolic 118–136; BP diastolic 47–67; PULSE 56–70; RESP 14–16; TEMP 36.3–36.5; O2SAT 97–100
[2021-09-30] MEDS: 0.9 % Sodium Chloride Flush 3 ML SYRINGE IVFLUSH ×2 (00:07→08:49)
[2021-09-30] MEDS: Calcium + Vitamin D 250 MG TABLET 500 MG PO (08:49)
[2021-09-30] MEDS: Folic Acid 1 MG TABLET PO (08:49)
[2021-09-30] MEDS: Cyanocobalamin (Vitamin B-12) 500 MCG TABLET PO (08:49)
[2021-09-30] MEDS: Multivitamin TABLET 1 TAB PO (08:49)
[2021-09-30] MEDS: Atorvastatin Calcium 20 MG TABLET PO (08:49)
--- NOTE | 2021-09-30 09:07 | PC.NURSE ---
0830-pt assessed. GCS 15, MERRICK ARVIN. pt states, having decreased sensation in bilateral feet, but that she has had prior to hospitalization from chemo. Left eye bruised. pt denies dizziness at this time. VSS. NSR on monitor. lung sounds clear A&P throughout bilaterally. bowel sounds present x4, no tenderness noted. pulses +2 x4. 0880-Dr. Hawkins at bedside and discussed plan of care with patient.
--- NOTE | 2021-09-30 09:35 | P.CNPS_ITS ---
History of Present Illness Date of Service: 09/30/21 Chief Complaint: Syncope Reason for Consult: medication Requesting physician: Alejandro Hawkins Discussed with referring provider: Yes Sources of Information: patient interviewed, chart reviewed and crisis/core team assessment reviewed HPI Narrative: Patria is a 75 y.o. female who presented to [facility] on 09/29/21 due to syncopal episodes with no prodromal sx. She has a past medical history of seizure disorder (however last seizure was 40 years ago and thus she is not on anti- epileptic), history of breast cancer status post lumpectomy, HLD. Last episode of syncope was 09/28/21 when she was walking to the bathroom and she passed out, sustained injury around her left eye. She then had a normal day but around 19:00 the episode occurred again where she also passed out while walking. She denies any head injury, head CT showed no acute intracranial finding. Remote hx of alcohol abuse, abstinent 40 yrs. Pt has had recent EKG showing possible history of septal infarct, she had an exercise stress test as well as an echo done which showed atrial region GERD. Stress test was normal.? During the course of hospitalization, pt was seen by Cardiology and monitored on telemetry-telemetry showed bradycardic episodes in the 30s, cardiology recommended outpatient workup since patient is otherwise asymptomatic currently. Her blood pressures are borderline orthostatic, given John stockings and encouraged hydration. Pt had an EEG, which was wnl. Pt agreed to going home with VNA services to monitor vitals. Psych consult requested for medication eval due to question of prozac exacerbating sx and pt?s hx of anxiety. Pt has an OP psychiatrist, Dr. Ceballos. I evaluated the pt this evening and upon interview she reports she does not feel symptomatic. Pt reports she takes prozac 40 mg QAM and says ?it?s functional.? Had been on Effexor ER in the past and thinks that ?it kept me more stable than the prozac,? however she had issues filling it and ?went into full blown withdrawal,? did not want to take it anymore. Reports recently she has had trouble sleeping, attributes this to not being as physically active due to her syncopal episodes. She has tried melatonin but it gave her nightmares. She denies SI/SIB/HI. Says she feels safe.? Medical Evaluation Reviewed: Yes [facility] Medical History (Updated 10/01/21 @ 11:11 by Alice Patel NP) Annual physical exam Ascending aorta enlargement Chest pain Depression Fecal incontinence Goiter, nodular History of alcohol dependence History of shingles Hx: UTI (urinary tract infection) Hyperlipidemia Lab test negative for COVID-19 virus Osteoporosis Seizures Surgical History History of cataract surgery History of colonoscopy History of foot surgery History of lumpectomy of left breast History of tonsillectomy History of tubal ligation Diagnostics Vital Signs (24Hr): Vital Signs - 24 hr 09/29/21 11:35 09/29/21 11:36 09/29/21 11:53 Temperature Pulse Rate 52 51 64 Respiratory Rate Blood Pressure 123/60 125/60 121/64 Pulse Oximetry Oxygen Delivery Method 09/29/21 11:55 09/29/21 16:00 09/29/21 21:04 Temperature 98.5 F 98.2 F 97.8 F Pulse Rate 53 53 57 Respiratory Rate 17 16 16 Blood Pressure 138/59 L 101/47 L 124/51 L Pulse Oximetry 97 96 98 Oxygen Delivery Method Room Air Room Air Room Air 09/30/21 00:00 09/30/21 04:00 09/30/21 08:15 Temperature 97.7 F 97.4 F Pulse Rate 60 56 67 Respiratory Rate 16 14 15 Blood Pressure 124/47 L 125/52 L 118/59 L Pulse Oximetry 100 97 98 Oxygen Delivery Method Room Air Room Air Room Air BMI result Body Mass Index 21.7 Labs Results: 09/29/21 06:52 09/29/21 06:52 Labs: Laboratory Results - last 48 hr 09/29/21 09/29/21 09/29/21 01:08 01:08 01:08 WBC 7.4 RBC 3.65 L Hgb 11.5 L Hct 33.7 L MCV 92.3 MCH 31.5 MCHC 34.1 RDW 13.0 Plt Count 209 MPV 9.4 Immature Gran % (Auto) 0.3 Neut % (Auto) 76.2 H Lymph % (Auto) 15.9 L [place] % (Auto) 7.4 Eos % (Auto) 0.1 Baso % (Auto) 0.1 Lymph # (Auto) 1.2 [place] # (Auto) 0.6 Eos # (Auto) 0.0 Baso # (Auto) 0.0 Abs Immat Gran (auto) 0.02 Absolute Neuts (auto) 5.7 Absolute Nucleated RBC 0.000 Nucleated RBC % (auto) 0.0 PT INR APTT D-Dimer High Sensitivty Sodium 137 Potassium 4.0 Chloride 103 Carbon Dioxide 28 Anion Gap 10 L BUN 25 H Creatinine 0.85 Estim Creat Clear Calc 46.6 Estimated GFR > 60 Random Glucose 129 H Calcium 9.3 Total Bilirubin 0.4 AST 23 ALT 14 Alkaline Phosphatase 46 D Troponin I High Sens < 3.5 Total Protein 7.1 Albumin 4.5 TSH COVID-19 (KERLINE) COVID-19 Clin Com 09/29/21 09/29/21 09/29/21 01:45 02:31 06:52 WBC 6.7 RBC 3.51 L Hgb 11.0 L Hct 33.0 L MCV 94.0 MCH 31.3 MCHC 33.3 RDW 13.2 Plt Count 194 MPV 10.1 Immature Gran % (Auto) 0.5 H Neut % (Auto) 67.4 Lymph % (Auto) 21.7 [place] % (Auto) 9.5 Eos % (Auto) 0.6 Baso % (Auto) 0.3 Lymph # (Auto) 1.4 [place] # (Auto) 0.6 Eos # (Auto) 0.0 Baso # (Auto) 0.0 Abs Immat Gran (auto) 0.03 Absolute Neuts (auto) 4.5 Absolute Nucleated RBC 0.000 Nucleated RBC % (auto) 0.0 PT 12.8 INR 1.1 APTT 31.0 D-Dimer High Sensitivty < 150 Sodium Potassium Chloride Carbon Dioxide Anion Gap BUN Creatinine Estim Creat Clear Calc Estimated GFR Random Glucose Calcium Total Bilirubin AST ALT Alkaline Phosphatase Troponin I High Sens Total Protein Albumin TSH COVID-19 (KERLINE) Negative COVID-19 Clin Com See Note 09/29/21 06:52 WBC RBC Hgb Hct MCV MCH MCHC RDW Plt Count MPV Immature Gran % (Auto) Neut % (Auto) Lymph % (Auto) [place] % (Auto) Eos % (Auto) Baso % (Auto) Lymph # (Auto) [place] # (Auto) Eos # (Auto) Baso # (Auto) Abs Immat Gran (auto) Absolute Neuts (auto) Absolute Nucleated RBC Nucleated RBC % (auto) PT INR APTT D-Dimer High Sensitivty Sodium 141 Potassium 3.4 Chloride 107 Carbon Dioxide 26 Anion Gap 11 L BUN 21 H Creatinine 0.74 Estim Creat Clear Calc 53.6 Estimated GFR > 60 Random Glucose 106 Calcium 8.6 D Total Bilirubin AST ALT Alkaline Phosphatase Troponin I High Sens Total Protein Albumin TSH 1.68 COVID-19 (KERLINE) COVID-19 Clin Com Imaging Radiology Impressions: ITS Impressions Cervical Spine CT 09/29/21 01:40 IMPRESSION: 1. No acute intracranial finding. 2. No acute fracture or malalignment of the cervical spine. Mild degenerative change. 3. Left periorbital soft tissue swelling. There is a linear lucency of the frontal bone superior to the left orbit which could represent a vascular channel. It is difficult to fully exclude a fracture at this location. Face CT 09/29/21 01:40 IMPRESSION: 1. No acute intracranial finding. 2. No acute fracture or malalignment of the cervical spine. Mild degenerative change. 3. Left periorbital soft tissue swelling. There is a linear lucency of the frontal bone superior to the left orbit which could represent a vascular channel. It is difficult to fully exclude a fracture at this location. Head CT 09/29/21 01:40 IMPRESSION: 1. No acute intracranial finding. 2. No acute fracture or malalignment of the cervical spine. Mild degenerative change. 3. Left periorbital soft tissue swelling. There is a linear lucency of the frontal bone superior to the left orbit which could represent a vascular channel. It is difficult to fully exclude a fracture at this location. Mental Status Exam Mental Status Exam Narrative: A&O. Well groomed, L eye hematoma, in hospital attire, normal body habitus. Good eye contact, attentive. No Tics or Tremors. No abnormal involuntary movements. Calm, cooperative, engaged. Non-pressured speech, spontaneous with regular rate and rhythm, normal volume and prosody. No prolonged speech latency or dysarthria. Mood is ?good,? affect is euthymic. Denies SI/SIB/HI upon inquiry. Denies A/VH or delusional thought content. Thoughts are coherent, organized. No known cognitive or memory impairment. Insight/ Judgment fair and adequate. Medications Medications Current Medications Acetaminophen (Acetaminophen 325 Mg Tablet) 650 mg PO Q6H PRN PRN Reason: Pain, Mild (Pain Scale 1-3) Atorvastatin Calcium (Atorvastatin Calcium 20 Mg Tablet) 20 mg PO DAILY [facility] Last Admin: 09/30/21 08:49 Dose: 20 mg Atropine Sulfate (Atropine Sulfate 1 Mg/Ml Vial) 0.5 mg IVPUSH Q5M PRN PRN Reason: SYMPTOMATIC BRADYCARDIA Bisacodyl (Bisacodyl 5 Mg Tablet.Dr) 10 mg PO ONCE [facility] Calcium Carbonate/Cholecalciferol (Calcium + Vitamin D 250 Mg Tablet) 500 mg PO DAILY [facility] Last Admin: 09/30/21 08:49 Dose: 500 mg Cyanocobalamin (Cyanocobalamin (Vitamin B-12) 500 Mcg Tablet) 500 mcg PO DAILY [facility] Last Admin: 09/30/21 08:49 Dose: 500 mcg Fluoxetine HCl (Fluoxetine Hcl 20 Mg Capsule) 40 mg PO DAILY [facility] Folic Acid (Folic Acid 1 Mg Tablet) 1 mg PO DAILY [facility] Last Admin: 09/30/21 08:49 Dose: 1 mg Letrozole (Letrozole 2.5 Mg Tablet) 2.5 mg PO DAILY [facility] Multivitamins/Vitamin C (Multivitamin Tablet) 1 tab PO DAILY [facility] Last Admin: 09/30/21 08:49 Dose: 1 tab Polyethylene Glycol (Polyethylene Glycol 3350 17 Gm Powd.Pack) 17 gm PO DAILY [facility] Last Admin: 09/30/21 08:49 Dose: Not Given Psyllium Hydrophilic Mucilloid (Psyllium Seed 3.4 Gm Powd.Pack) 3.4 gm PO DAILY [facility] Last Admin: 09/30/21 08:50 Dose: Not Given Sodium Chloride (0.9 % Sodium Chloride Flush 3 Ml Syringe) 3 ml IVFLUSH QSHIFT [facility] Last Admin: 09/30/21 08:49 Dose: 3 ml Allergies Allergies Allergy/AdvReac Type Severity Reaction Status Date / Time procaine [From Novocain] Allergy Intermediate Swelling Verified 09/19/21 09:21 Sulfa (Sulfonamide Allergy Intermediate Itching Verified 09/19/21 09:21 Antibiotics) Assessment & Plan Assessment & Plan (1) Syncope: Status: Acute Code(s): R55 - Syncope and collapse (2) CANDY (generalized anxiety disorder): Status: Acute Code(s): F41.1 - Generalized anxiety disorder Plan Plan: Pt reports good benefit on prozac for sx of anxiety. She does not want med changes. It is unlikely that prozac is contributing to sx of syncope. Discussed sleep hygiene, as pt does not want a sleep aid. No other interventions recommended.? I have shared this with Dr. Hawkins Thank you for this consultation. If you have any questions or concerns, please do not hesitate to contact psychiatry service. I spent minutes with the patient and/or on the patient floor today, great er than?50% of which was spent counseling/coordinating care. Patient educated on: medication risk/benefits
--- NOTE | 2021-09-30 09:42 | PC.NURSE ---
0940-pt up ambulating in [place] with standby assist. pt tolerated well without dizziness. HR remained in the 80's during ambulation.
--- NOTE | 2021-09-30 10:22 | PM.PNCARD ---
Subjective Subjective Date of Service: 09/30/21 Interval history: Patient states she feels fine. No specific complaints. No further syncope. Review of Systems Review of Systems Yes all other systems are reviewed and are negative Constitutional: Reports as per HPI Eyes: Reports as per HPI Reports as per HPI Cardiovascular: Reports as per HPI, Denies acrocyanosis, Denies cool extremities, Denies chest pain, Denies leg edema, Reports lightheadedness, Reports Loss of Consciousness, Denies palpitations and Denies dyspnea Respiratory: Reports as per HPI, Reports no additional respiratory complaints and Denies dyspnea Gastrointestinal: Reports as per HPI and Reports no additional gastrointestinal complaints Musculoskeletal: Reports no additional musculoskeletal complaints and Reports as per HPI Skin/Breast: Reports system reviewed and no additional complaints, except as docu Reports system reviewed and no additional complaints, except as documented and Reports as per HPI Psychiatric: Reports no additional psychiatric complaints and Reports as per HPI Endocrine: Reports no additional endocrine complaints, Reports as per HPI and Denies palpitations Hematologic/Lymphatic: Reports no additional hematologic/lymphatic complaints and Reports as per HPI Allergic/Immunologic: Reports no additional allergic/immunologic complaints and Reports as per HPI Physical Exam Vital Signs: Last Vital Signs Temp 97.4 F 09/30/21 04:00 Pulse 67 09/30/21 08:15 Resp 15 09/30/21 08:15 BP 118/59 L 09/30/21 08:15 Pulse Ox 98 09/30/21 08:15 O2 Del Method 09/30/21 08:15 BMI result Body Mass Index 21.7 Const General: comfortable and no acute distress Orientation/consciousness: patient oriented x3 HEENT Other: Unremarkable Head: Yes normal to inspection Neck Neck: Yes normal visual inspection Chest Chest palpation & inspection: normal inspection of the chest Resp Auscultation: clear to auscultation bilaterally Cardio Palpation: normal PMI Heart sounds: S1 normal heart sound present, S2 normal heart sound present, no gallops, no murmurs and no rubs GI Palpation (GI): Soft to palpation Back/Spine/Pelvis Other: unremarkable Skin General skin exam: no rashes or lesions noted Neuro General: patient oriented x3 Extrem General: Yes normal to inspection Psych Mental Status: mental status grossly normal Objective Labs and Meds Result diagrams: 09/29/21 06:52 09/29/21 06:52 Lab results: Laboratory Results - last 24 hr 09/29/21 06:52 TSH 1.68 Progress Note: A&P Assessment and plan (1) Syncope: Status: Acute (2) Sinus bradycardia: Status: Acute Plan Recent echocardiogram with normal LVEF, 60-65%; mild aortic regurgitation mild ascending aortic dilatation. Recent myocardial perfusion imaging study reported to have likely normal perfusion. High sensitivity troponin less than 3.5. Initially she had some evidence of sinus bradycardia but otherwise nothing significant. Overall, not clear as to the etiology for syncopal episodes. We can discharge her. Will arrange outpatient Holter monitoring and then follow-up beyond that. Discussed with Dr. Hawkins. Time Spent With Patient Time: Total time spent is greater than 50% in coordination of care (as documented) at patient's floor/unit and/or counseling patient: 35min. Progress Note: Quality Stroke Does the patient have a stroke diagnosis?: No Procedures Date of Service Date of Service: 09/30/21
[2021-09-30 10:34] LABS: Estimated Average Glucose 105 mg/dL; Hemoglobin A1c % 5.3 %
--- NOTE | 2021-09-30 11:53 | PM.DS ---
DS: Providers Provider Date of Service: 09/30/21 Date of admission: 09/29/21 04:32 Primary care physician: Iliana Neumann MD Consults: 09/29/21 05:16 Consult to Cardiology Routine Consulting Provider: Trey Ku Reason for consultation: Syncope, possibly cardiac in nature Has provider been notified: No 09/30/21 09:08 Consult to Psychiatry Routine Consulting Provider: Psych Covering Reason for consultation: fall/bradycardia-? needs any psych med adjustment. 09/30/21 10:39 Consult to Neurology Routine Consulting Provider: [facility] Reason for consultation: syncope -unclear etiology Has provider been notified: No DS: Diagnosis Discharge Diagnosis (1) Syncope: Status: Acute (2) Sinus bradycardia: Status: Acute DS: Summary Hospital Course Hospital Course: 75-year-old female with past medical history of seizure disorder 40 years ago, history of breast cancer status post lumpectomy, HLD who presents to the hospital with syncopal episodes.? Patient reports that she had 2 episodes of syncope is at home.? The initial 1 was at 07:00 yesterday when she was walking to the bathroom, she reports that she passed out, she is not aware for how long, she was wearing her glasses and sustained injury around her left eye.? She reports no prodromal symptoms but on waking she felt significantly fatigue and tired.? She denies having any chest pain no shortness of breath or palpitations prior to the episode occurring, she denies any dizziness prior to that.? She then had a normal day but around 19:00 the episode occurred again where she also passed out while walking.? She denies any head injury, once again reports no shortness of breath chest pain or palpitations.? No other poor dermal symptoms.? On waking up she once again was fatigue and therefore decided to come to the hospital for further evaluation. ?Patient reports a history of seizure about 40 years ago, felt to be possibly related to alcohol abuse but was labeled as idiopathic.? Patient reports that she took antiepileptic medication for 1 year but then stopped it and has not had any seizure episodes for 40 years.? She reports no alcohol abuse for 40 years, note patient underwent a cardiac workup for abnormal chest pain as well as EKG showing possible history of septal infarct, she had an exercise stress test as well as an echo done which showed atrial region GERD.? Stress test was normal. Patient otherwise reports being in good health, no recent acute illness.? Denies any chest pain, no shortness of breath, no abdominal pain nausea or vomiting, no diarrhea constipation, no urinary symptoms and no lower extremity edema. On arrival to the ED patient with dynamic least stable with no significant abnormal vitals Labs are significant for IVC count of 7.4, hemoglobin of 11.5, otherwise unremarkable.? CT of the head shows no acute intracranial finding, no acute fracture or malalignment of the cervical spine, left periorbital soft tissue swelling, left periorbital soft tissue swelling, there is a linear lucency of the frontal bone superior to the left orbit which could represent a vascular channel, difficult to fully exclude of fracture at this location.? Given the multiple syncopal episodes with no prodromal symptoms patient will be admitted for further evaluation. hospital course : Patient came to the hospital because of fall/syncope: Patient was seen by Cardiology and monitored on telemetry-telemetry seems fine, cardiology recommended outpatient workup since patient is asymptomatic currently no new went during the hospitalization. TSH seems fine. Her blood pressures are borderline orthostatic -did not completely match the orthostatic criteria, but will given the benefit of doubt and give John stocking she is walking without any symptoms. Patient was encouraged to adequately hydrate herself also. Patient's EEG seems fine also, in addition discussed with Neurology-seizure less likely. No further intervention currently and follow-up with PCP and Cardiology outpatient. Patient will go home with VNA. Above management discussed with the patient in detail length she understand and in agreement with the above plan, time spent 50 minutes and 50% time spent on counseling. Significant findings: As above. Procedures performed: None. Treatment and response: As above. Complications: None. That Time Spent with Patient Time attestation: Total time spent providing and/or coordinating discharge services: Discharge coordination time: Greater than 30 minutes Quality: Safe Use of Opioids Does Pt have an Active Cancer Diagnosis on the Problem List?: No Quality: Stroke Does the patient have a stroke diagnosis?: No Physical Exam Vital Signs: Vital Signs: Last Vital Signs Temp 97.4 F 09/30/21 04:00 Pulse 67 09/30/21 10:55 Resp 15 09/30/21 08:15 BP 128/61 09/30/21 10:55 Pulse Ox 98 09/30/21 08:15 O2 Del Method 09/30/21 08:15 BMI result Body Mass Index 21.7 Appearance: Alert.? Oriented X3.? not in distress.? Eyes: Pupils equal, round and reactive to light.? Sclera nonicteric.? ENT: Pharynx normal.? Moist mucous membranes. cvs: rrr, [id number] , no murmur res: clear to auscultation ,no rhonchii or wheezing abd: no rebound or guarding ,nt, bs present. ext pulses present , no cyanosis . neuro: axo3 , nonfocal. DS: Data Data Completed and Pending Labs on day of discharge: Laboratory Results - last 24 hr 09/29/21 09/30/21 06:52 10:16 Estimat Average Glucose 105 Hemoglobin A1c % 5.3 TSH 1.68 Additional Comments Additional comments: ? 09/29/21 09/29/21 09/29/21 ? 01:08 01:08 01:08 MCV ?92.3 ? ? MCH ?31.5 ? ? MCHC ?34.1 ? ? RDW ?13.0 ? ? Plt Count ?209 ? ? MPV ?9.4 ? ? Immature Gran % (Auto) ?0.3 ? ? Neut % (Auto) ?76.2 H ? ? Lymph % (Auto) ?15.9 L ? ? Independence % (Auto) ?7.4 ? ? Eos % (Auto) ?0.1 ? ? Baso % (Auto) ?0.1 ? ? Lymph # (Auto) ?1.2 ? ? Independence # (Auto) ?0.6 ? ? Eos # (Auto) ?0.0 ? ? Baso # (Auto) ?0.0 ? ? Abs Immat Gran (auto) ?0.02 ? ? Absolute Neuts (auto) ?5.7 ? ? Absolute Nucleated RBC ?0.000 ? ? Nucleated RBC % (auto) ?0.0 ? ? PT ? ? ? INR ? ? ? APTT ? ? ? D-Dimer High Sensitivty ? ? ? Anion Gap ? ?10 L ? Estim Creat Clear Calc ? ?46.6 ? Estimated GFR ? ?> 60 ? Random Glucose ? ?129 H ? Calcium ? ?9.3 ? Total Bilirubin ? ?0.4 ? AST ? ?23 ? ALT ? ?14 ? Alkaline Phosphatase ? ?46? D ? Troponin I High Sens ? ? ?< 3.5 Total Protein ? ?7.1 ? Albumin ? ?4.5 ? COVID-19 (KERLINE) ? ? ? COVID-19 Clin Com ? 09/29/21 09/29/21 ? 01:45 02:31 MCV ? ? MCH ? ? MCHC ? ? RDW ? ? Plt Count ? ? MPV ? ? Immature Gran % (Auto) ? ? Neut % (Auto) ? ? Lymph % (Auto) ? ? Independence % (Auto) ? ? Eos % (Auto) ? ? Baso % (Auto) ? ? Lymph # (Auto) ? ? Independence # (Auto) ? ? Eos # (Auto) ? ? Baso # (Auto) ? ? Abs Immat Gran (auto) ? ? Absolute Neuts (auto) ? ? Absolute Nucleated RBC ? ? Nucleated RBC % (auto) ? ? PT ?12.8 ? INR ?1.1 ? APTT ?31.0 ? D-Dimer High Sensitivty ?< 150 ? Anion Gap ? ? Estim Creat Clear Calc ? ? Estimated GFR ? ? Random Glucose ? ? Calcium ? ? Total Bilirubin ? ? AST ? ? ALT ? ? Alkaline Phosphatase ? ? Troponin I High Sens ? ? Total Protein ? ? Albumin ? ? COVID-19 (KERLINE) ? ?Negative COVID-19 Clin Com ? ?See Note Imaging Radiologist's Impressions: Impressions Cervical Spine CT? 09/29/21 01:40 IMPRESSION: ? 1. No acute intracranial finding. 2. No acute fracture or malalignment of the cervical spine. Mild degenerative change. 3. Left periorbital soft tissue swelling. There is a linear lucency of the frontal bone superior to the left orbit which could represent a vascular channel. It is difficult to fully exclude a fracture at this location. Face CT? 09/29/21 01:40 IMPRESSION: ? 1. No acute intracranial finding. 2. No acute fracture or malalignment of the cervical spine. Mild degenerative change. 3. Left periorbital soft tissue swelling. There is a linear lucency of the frontal bone superior to the left orbit which could represent a vascular channel. It is difficult to fully exclude a fracture at this location. Head CT? 09/29/21 01:40 IMPRESSION: ? 1. No acute intracranial finding. 2. No acute fracture or malalignment of the cervical spine. Mild degenerative change. 3. Left periorbital soft tissue swelling. There is a linear lucency of the frontal bone superior to the left orbit which could represent a vascular channel. It is difficult to fully exclude a fracture at this location. Discharge Plan Discharge Patient Disposition: Home Health Service Discharge Diagnosis: Syncope , bradycardia Referrals: Iliana Neumann MD [Primary Care Provider] - 1 Week Discharge Medications: New (DME) T.E.D. Knee [id number] Misc See Rx Instructions .Route Qty: 24 0RF Rx Instructions: As directed Continued Fosamax Plus D 70 mg- 2,800 unit Tablet 1 tab PO QWEEK Qty: 3 2RF multivitamin Tablet 1 tab PO DAILY letrozole 2.5 mg Tablet 2.5 mg PO DAILY Qty: 30 1RF calcium carbonate-vitamin D2 600 mg calcium- 200 unit tablet 1 tab PO DAILY fluoxetine 20 mg capsule 40 mg PO DAILY vitamin [id number] acid 0.5-1 mg tablet 1 tab PO DAILY atorvastatin [Lipitor] 20 mg tablet 20 mg PO DAILY Qty: 30 11RF psyllium husk 2.6 gram/4.1 gram powder 1 tbsp PO DAILY 60 Days Qty: 480 3RF Rx Instructions: mix into at least 8 oz of water or juice before administering bisacodyl [Dulcolax (bisacodyl)] 5 mg tablet,delayed release (DR/EC) 10 mg PO ONCE 2 Days Qty: 4 0RF Rx Instructions: Take 2 tablets at 12 pm starting 2 days before colonoscopy polyethylene glycol 3350 [Miralax] 17 gram/dose powder 17 g PO DAILY 1 Days Qty: 238 0RF Rx Instructions: Mix Miralax with 64 oz(8 cups) of Crystal light. Take 2 tablets of Dulcolax qt 12 pm. Wait to have your 1st bowel movement, then begin drinking Miralax. Drink a glass of Miralax every 10-15 minutes until you are finished. You will drink at least another 4 cups of clear liquid of your choice over the next 2 hours. Please drink as many clear liquids as possible You may have clear liquids up to four hours before your procedure Discharge Orders: Discharge Order (Routine); Ordered 09/30/21 Ordered By: Alejandro Hawkins Diet: Advance to usual diet Activity on Discharge: As tolerated Stand Alone Forms: Patient Portal Discharge page Care Plan Goals: Patient came to the hospital because of fall/syncope: Patient was seen by Cardiology and monitored on telemetry-telemetry seems fine, cardiology recommended outpatient workup since patient is asymptomatic currently no new went during the hospitalization. TSH seems fine. Patient's EEG seems fine also, in addition discussed with Neurology-seizure less likely. No further intervention currently and follow-up with PCP and Cardiology outpatient. Patient will go home with VNA. Health Concerns: As above. Plan of Treatment: As above. Assessment: As above.
--- NOTE | 2021-09-30 12:03 | W.MHC.F2F ---
Service Date Service Date: 09/30/21 Encounter Date of encounter: 09/30/21 Reasons for Services Signs and symptoms assessed: syncope Reason for halfway: CV/CP assess and/or care, medication management, medication treatment and teach disease management MD Overseeing Care: Iliana Neumann Homebound: Leaving the home is medically contraindicated at this time without the asist of a device and/or another person due th the listed conditions above and below. Reason homebound: weakness related to hospital stay Homebound supporting statement: patient had syncope , multiple coomorbidities needs help to go to appointments. Certification: Based on the above findings, I certify that this patient is confined to the home and needs intermittent halfway care, physical therapy and/or speech therapy, or continues to need occupational therapy. The patient is under my care, and I have initiated the establishment of the plan of care. The patient will be followed by a physician who will periodically review the plan of care.
--- NOTE | 2021-09-30 12:04 | MHC.CM.PN ---
Spoke w/patient; reviewed OBS Notice. Lives at home, fully independent. No prior services, no equipment in the home. Drives self to/from appts. MD order for Home w/VNA. Patient in agreement w/[facility] for home care needs. Patient indicates family to transport home. CM reported to , MD in agreement.
--- NOTE | 2021-09-30 14:27 | MHC.CM.PN ---
[facility] responded they are unwilling to accept patient. Attempted communication w/them RE identifying appropriate DXs that were indicated as missing. No responses back from [facility] when this RNCM requested additional review by them, as well as offered assistance w/DXs, etc. Notified MD (who also made an attempt at assisting by amending/adjusting documents to reflect additional specifics insinuated to be of use). Still no response from [facility]. Will attempt reaching out to alternate VNA companies for patient's D/C to home. Notified MD; in agreement.
--- NOTE | 2021-09-30 15:00 | MHC.CM.PN ---
[facility] offered in-home care for patient w/DOS 10/07/21. Reached out to who okayed this start date for patient. This RNCM responded to [facility] accepting offer and requesting should they have an opening sooner (cancellation, etc), to kindly initiate services sooner. D/C plan in place. Cancelled [facility] referral given their refusal of/lack of communication and inability to work collaboratively for a safe D/C for patient. Offer not extended by [facility] for in-home care; referral cancelled.
== END 2021-09-30 14:31 | disposition home health service (06) ==
LOC: HO.ED 04:55 → HO.EDOVER 05:03
PROVIDERS: Emergency Medicine; Registered Nurse; Admitting Provider Internal Medicine; Emergency Provider Internal Medicine; PCP Internal Medicine; Visit Provider Internal Medicine
DX: S00.12XA Contusion of left eyelid and periocular area, initial encounter (principal); S09.93XA Unspecified injury of face, initial encounter; S06.9X9A Unspecified intracranial injury with loss of consciousness of unspecified duration, initial encounter; R55 Syncope and collapse; R00.1 Bradycardia, unspecified; I35.1 Nonrheumatic aortic (valve) insufficiency; F41.9 Anxiety disorder, unspecified; E78.5 Hyperlipidemia, unspecified; R22.1 Localized swelling, mass and lump, neck; R79.89 Other specified abnormal findings of blood chemistry; M54.2 Cervicalgia; W01.0XXA Fall on same level from slipping, tripping and stumbling without subsequent striking against object, initial encounter; Y93.9 Activity, unspecified; Y92.002 Bathroom of unspecified non-institutional (private) residence as the place of occurrence of the external cause; Y99.9 Unspecified external cause status; Z20.822 Contact with and (suspected) exposure to COVID-19; Z85.3 Personal history of malignant neoplasm of breast; Z82.49 Family history of ischemic heart disease and other diseases of the circulatory system; Z83.6 Family history of other diseases of the respiratory system; Z87.891 Personal history of nicotine dependence; Z79.899 Other long term (current) drug therapy; Z79.891 Long term (current) use of opiate analgesic
CPT/HCPCS: 36415; 70450; 70486; 72125; 80048; 80053; 83036; 84443; 84484; 85025; 85379; 85610; 85730; 87635; 93005; 95816; 95819; 96374; 97161; 99214; 99215; 99219; 99285

== ENCOUNTER → 2021-10-13 14:38 | Outpatient (REF) | payer MEDICARE, BC, SELFPAY ==
--- NOTE | 2021-10-13 14:40 | HM_ITS ---
* Total monitoring time 6 days and 22 hours. * Underlying rhythm is sinus. Average rate 63/Min. Range 46 to 127/Min. * No atrial fibrillation or flutter or AV blocks or pauses. * Rare supraventricular ectopy with minimal burden. Very brief runs. * Rare ventricular ectopy with minimal burden. * No patient events. MTDD
== END ==
LOC: HO.CARD 14:38
PROVIDERS: PCP Internal Medicine; Visit Provider Internal Medicine
DX: R55 Syncope and collapse (principal)
CPT/HCPCS: 93246

== ENCOUNTER → 2021-11-16 12:42 | Outpatient (BNVA) | payer MEDICARE, BC, SELFPAY | PROVIDERS: PCP Internal Medicine; Referring Provider Internal Medicine; Visit Provider Internal Medicine Cardiovascular Disease | DX: R55 Syncope and collapse (principal); I77.89 Other specified disorders of arteries and arterioles | CPT/HCPCS: 99212 ==

== ENCOUNTER 2021-12-14 12:20 | Outpatient (REF) | payer MEDICARE, BC, SELFPAY ==
[2021-12-14 12:37] LABS: MANUAL DIFF FLAG NO
[2021-12-14 13:15] LABS: Basophils Percent Auto 0.7 % (0-2); Eosinophils Absolute Auto 0.1 X10*3/uL (0.0-0.4); Eosinophils Percent Auto 1.6 % (0-4); Hematocrit 37.1 % (37.0-47.0); Hemoglobin 12.2 g/dl (12.0-16.0); Imm Gran Abs Auto 0.02 X10*3/uL (0.00-0.03); Imm Gran Pct Auto 0.5 % (0.0-0.4); Lymphocytes Percent Auto 22.2 % (20-40); Mean Corpuscular HGB Conc 32.9 g/dl (31.0-35.0); Mean Corpuscular Hemoglobin 31.8 pg (27.0-33.0); Mean Corpuscular Volume 96.6 fL (80.0-98.0); Mean Platelet Volume 9.8 fL (9.4-12.3); Monocytes Absolute Auto 0.4 X10*3/uL (0.1-1.2); Monocytes Percent Auto 8.6 % (2-11); Neutrophils Absolute Auto 2.8 x10*3/uL (2.0-8.3); Neutrophils Percent Auto 66.4 % (45-73); Platelet Count 243 X10*3/uL (160-400); Red Blood Count 3.84 X10*6/uL (4.20-5.50); Red Cell Distribution Width 13.3 % (11.0-16.0); White Blood Count 4.3 X10*3/uL (4.8-10.8)
[2021-12-14 13:41] LABS: Alanine Aminotransferase 18 U/L (0-31); Albumin Level 4.1 g/dL (3.5-5.0); Alkaline Phosphatase 45 U/L (39-117); Anion Gap 13 (12-20); Aspartate Amino Transferase 27 U/L (5-31); Bilirubin Total 0.6 mg/dL (0.0-1.0); Blood Urea Nitrogen 25 mg/dL (9-16); Calcium 8.4 mg/dL (8.4-10.2); Carbon Dioxide 25 mmol/L (22-29); Chloride 104 mmol/L (96-108); Cholesterol 150 mg/dL; Estimated Glomerular Filt Rate > 60; Glucose Fasting 100 mg/dL (60-99); HDL Cholesterol 71 mg/dL; Iron 97 mcg/dL (30-160); LDL Cholesterol Calculated 73 mg/dl; Percent Iron Saturation 31 % (15-50); Potassium 4.1 mmol/L (3.3-5.1); Sodium 138 mmol/L (135-145); Total Iron Binding Capacity 312 mcg/dL (228-428); Total Protein 6.6 g/dL (6.5-8.0); Triglycerides 31 mg/dL; Unsaturated Iron Binding 215 ug/dL
[2021-12-14 13:58] LABS: Vitamin D 25-OH Total 39.5 ng/mL (>30)
== END 2021-12-14 12:21 | disposition home or self-care (01) ==
LOC: HO.LAB 12:20
PROVIDERS: Absent Provider Internal Medicine Cardiovascular Disease; PCP Internal Medicine; Visit Provider Internal Medicine
DX: E55.9 Vitamin D deficiency, unspecified (principal); E78.5 Hyperlipidemia, unspecified; R55 Syncope and collapse; I25.10 Atherosclerotic heart disease of native coronary artery without angina pectoris; D64.9 Anemia, unspecified
CPT/HCPCS: 36415; 80053; 80061; 82306; 83540; 85025

== ENCOUNTER 2021-12-25 07:15 | Day surgery (SDC) | payer MEDICARE, BC, SELFPAY ==
[2021-12-20 15:20] VITALS: BMI 21.7
[2021-12-21 13:47] VITALS: BMI 21.9
--- NOTE | 2021-12-22 12:08 | P.CONAN_ITS ---
Documented by User: Azra Benavidez NP 12/22/21 12:12 HPI - Anesthesia Eval Consult details Narrative: 76yo [place] [facility] with syncope x 2. Cardiac consulted and seen outpt. Likely orthostatic hypotn. No recurrence. Will follow yearly for mild aortic aneurysm. [facility] Active Problems Active Problems: All Active Problems (Updated 11/16/21 @ 13:04 by Viral Masters MD) Ascending aorta enlargement (Acute) Chest pain (Acute) Vitamin D deficiency (Acute) Anemia (Acute) CANDY (generalized anxiety disorder) (Acute) Sinus bradycardia (Acute) Syncope (Acute) Hx of type B viral hepatitis (Acute) Exertional dyspnea (Acute) Malaise (Acute) History of lumpectomy of left breast (Acute) Annual physical exam (Acute) Sprain of right shoulder (Acute) Invasive ductal carcinoma of breast (Chronic) Mammogram declined (Acute) Fecal incontinence (Acute) Hyperlipidemia (Acute) Past Medical History Medical History Annual physical exam Ascending aorta enlargement Chest pain Depression Fecal incontinence Goiter, nodular History of alcohol dependence History of shingles Hx: UTI (urinary tract infection) Hyperlipidemia Lab test negative for COVID-19 virus Osteoporosis Seizures Family History Family History Father Pulmonary fibrosis HTN (hypertension) CAD (coronary artery disease) Mother CAD (coronary artery disease) HTN (hypertension) COPD (chronic obstructive pulmonary disease) Pancreatitis Maternal Grandmother History of breast cancer Family/Other History of breast cancer Family history of problems with anesthesia: No Surgical History Surgical History History of cataract surgery History of colonoscopy History of eye surgery History of foot surgery History of lumpectomy of left breast History of tonsillectomy History of tubal ligation History of Problems with Anesthesia: No Social History Social History Housing: House Are you a primary career based intervention coordinator to a significant other at home: No Do you presently have visiting nurse or other home services: No Alcohol intake: former Year quit: 1982 Patient Tobacco Use Status: Former Tobacco user Quit Date: 1982 Tobacco use type: Cigarette Years Smoked: 13 +/- Use of substances other than those prescribed or required for medical reasons: No Have you been hit, kicked, punched, or otherwise hurt by someone within the past year? If so, by whom?: No Are you DNR?: No Advance Directives: No Advance Directives Information Provided: Yes Advance Directives on File: No Recently lost weight without trying: No Nutrition Risks: No Nutritional Risk Current occupational status: retired Cognitive needs: No Hearing needs: No Vision needs: Yes Meds Allergies Allergy/AdvReac Type Severity Reaction Status Date / Time procaine [From Novocain] Allergy Intermediate Swelling Verified 12/22/21 13:16 Sulfa (Sulfonamide Allergy Intermediate Itching Verified 12/22/21 13:16 Antibiotics) Home Medications Medication Instructions Recorded Confirmed Last Taken Type fluoxetine 20 mg capsule 40 mg PO DAILY 01/20/20 12/22/21 05/09/20 06:15 History multivitamin 1 tab PO DAILY 05/25/20 12/22/21 Unknown History calcium carb-ergocalciferol (vit 1 tab PO DAILY 09/12/21 12/22/21 Unknown History D2) 600 mg calcium-200 unit tablet Exam Exam Date and Time: December 22, 2021 1208 Height,Weight and Vital Signs: Height 5 ft 2 in Weight 54.431 kg Pertinent Lab Results Pertinent Lab Results: Laboratory Tests 12/14/21 12/14/21 12:36 12:36 WBC 4.3 L Hgb 12.2 Hct 37.1 Plt Count 243 D Sodium 138 Potassium 4.1 D Chloride 104 Carbon Dioxide 25 BUN 25 H Creatinine 0.74 Narrative Narrative: EKG 09/2021 Vent. Rate : 058 BPM ? ? Atrial Rate : 058 BPM ?? P-R Int : 154 ms? QRS Dur : 082 ms ? ? QT Int : 422 ms ? ? ? P-R-T Axes : 075 023 095 degrees ?? QTc Int : 414 ms ? Sinus bradycardia cannot exclude? Septal infarct , age undetermined Nonspecific ST and T wave abnormality Lateral leads Abnormal ECG No previous ECGs available ECHO 07/2021 Conclusions: - 1.? Normal LV systolic function with impaired relaxation ? ? ? filling pattern? 2. Mildly dilated left atrium? 3. Mild aortic regurgitation ? 3.? Normal RV systolic pressure? 4. Mildly dilated ascending aorta? 5. No pericardial effusion ? 7 Day Holter 07/2021 * Total monitoring time 6 days and 22 hours. * Underlying rhythm is sinus.? Average rate 63/Min.? Range 46 to 127/Min. * No atrial fibrillation or flutter or AV blocks or pauses. * Rare supraventricular ectopy with minimal burden.? Very brief runs. * Rare ventricular ectopy with minimal burden. * No patient events. NM cardiolite stress test 07/2021 Impression: ? 1.? Likely normal myocardial perfusion 2.? Gated LVEF is 68% 3. Transient ischemic dilatation not present ? Stress EKG is equivocal for ischemia Assessment and Plan Assessment Anesthesia Assessment: Chart Reviewed Final Anesthetic Review Family History of Problems with Anesthesia: No History of Problems with Anesthesia: No Documented by User: Marlen Hernandez MD 12/25/21 09:05 [facility] Past Medical History Medical History Annual physical exam Ascending aorta enlargement Chest pain Depression Fecal incontinence Goiter, nodular History of alcohol dependence History of shingles Hx: UTI (urinary tract infection) Hyperlipidemia Lab test negative for COVID-19 virus Osteoporosis Seizures Family History Family History Father Pulmonary fibrosis HTN (hypertension) CAD (coronary artery disease) Mother CAD (coronary artery disease) HTN (hypertension) COPD (chronic obstructive pulmonary disease) Pancreatitis Maternal Grandmother History of breast cancer Family/Other History of breast cancer Surgical History Surgical History History of cataract surgery History of colonoscopy History of eye surgery History of foot surgery History of lumpectomy of left breast History of tonsillectomy History of tubal ligation Social History Social History Housing: House Are you a primary career based intervention coordinator to a significant other at home: No Do you presently have visiting nurse or other home services: No Alcohol intake: former Year quit: 1982 Patient Tobacco Use Status: Former Tobacco user Quit Date: 1982 Tobacco use type: Cigarette Years Smoked: 13 +/- Use of substances other than those prescribed or required for medical reasons: No Have you been hit, kicked, punched, or otherwise hurt by someone within the past year? If so, by whom?: No Are you DNR?: No Advance Directives: No Advance Directives Information Provided: Yes Advance Directives on File: No Recently lost weight without trying: No Nutrition Risks: No Nutritional Risk Current occupational status: retired Cognitive needs: No Hearing needs: No Vision needs: Yes Meds Allergies Allergy/AdvReac Type Severity Reaction Status Date / Time procaine [From Novocain] Allergy Intermediate Swelling Verified 12/22/21 13:16 Sulfa (Sulfonamide Allergy Intermediate Itching Verified 12/22/21 13:16 Antibiotics) Home Medications Medication Instructions Recorded Confirmed Last Taken Type fluoxetine 20 mg capsule 40 mg PO DAILY 01/20/20 12/22/21 05/09/20 06:15 History multivitamin 1 tab PO DAILY 05/25/20 12/22/21 Unknown History calcium carb-ergocalciferol (vit 1 tab PO DAILY 09/12/21 12/22/21 Unknown History D2) 600 mg calcium-200 unit tablet Exam Airway Mallampati Class: II (Cap front) TM Dist: >3cm Neck ROM: Full Partial: Upper Heart: rrr Lungs: cta Assessment and Plan Assessment Anesthesia Assessment: Anesthesia Plan Discussed Final Anesthetic Review NPO: Yes ASA Class: II Final Preanesthetic Review: No Changes in Pt Med Stat, Meds/Allgs Chart Reviewed and Consent Obtained/Reviewed Patient Risk: Intermediate Procedure Risk: Intermediate Anesthetic Plan Anesthetic Plan: MAC: Disposition: Standard PACU
[2021-12-25 07:56] VITALS: BP 114/54; PULSE 61; RESP 16; TEMP 36.3; O2SAT 98
[2021-12-25] MEDS: Lactated Ringers 1,000 ML 100 ML IVCONT (07:57)
--- NOTE | 2021-12-25 08:21 | MHC.SHP ---
Pre-Procedural Eval Section A Date of Service: 12/25/21 The patient is an INPATIENT: No The History & Physical has been completed within 30 days and I have reviewed it.: No Section B Chief Complaint: feces incontinence Relevant Family History (Specify if Yes): No Relevant Social History: Tobacco Use (Former smoker) Present Medications: see Short Stay Collaborative assessment Medical History: Significant History (Annual physical exam Ascending aorta enlargement Chest pain Depression Fecal incontinence Goiter, nodular History of alcohol dependence History of shingles Hx: UTI (urinary tract infection) Hyperlipidemia Lab test negative for COVID-19 virus Osteoporosis Seizures) History of Previous Operations: Relevant previous surgery/procedure and date(s) (History of cataract surgery History of colonoscopy History of foot surgery History of lumpectomy of left breast History of tonsillectomy History of tubal ligation) Allergies: Allergies Allergy/AdvReac Type Severity Reaction Status Date / Time procaine [From Novocain] Allergy Intermediate Swelling Verified 12/22/21 13:16 Sulfa (Sulfonamide Allergy Intermediate Itching Verified 12/22/21 13:16 Antibiotics) Review of Systems Sugical H&P ROS: Negative: Constitution, Cardiovascular and Respiratory and Yes, Specify: Gastrointestinal (fecal incontinence) Exam Surgical H&P Exam: Normal: Heart, Normal: Lungs, Normal: Extremities and Normal: Abdomen Plan Diagnosis/Plan: Unchanged I have reviewed the history and physical and performed a pertinent physical examination on my patient. No changes have occurred unless specified.
--- NOTE | 2021-12-25 08:35 | P.BOP_ITS ---
Brief Operative Note Date of Service: 12/25/21 Pre-op diagnosis: Colon cancer screening, fecal incontinence Post-op diagnosis: other (Diverticulosis) Procedure: COLONOSCOPY TILL CECUM WITH BIOPSIES Consent: Indications for the procedure and potential complications of bleeding, perforation, reaction to medications and missed diagnosis were discussed with the patient and informed consent was obtained. Instrument: Olympus PCF H 190 L variable stiffness pediatric colonoscope Monitoring: Vital signs and clinical assessment, intermittent blood pressure monitoring, continuous EKG monitoring, Pulse oximetry and Carbon Dioxide monitoring were done throughout the procedure. Colon withdrawl time was 18 minutes. Procedure: The patient was placed in the left lateral decubitis position and pre-procedure medications were administered. After a digital rectal examination of the ano-rectum, the video colonoscope was inserted into the rectum and advanced through the colon to the cecum. The colonoscope was slowly withdrawn in a retrograde panoramic fashion and the colon mucosa was carefully examined including a retroflexed view of the rectum. Findings and interventions are described below. Procedure Difficulty: Without difficulty Findings: Terminal Ileum: Not evaluated Cecum: Normal Ascending Colon: Normal Transverse Colon: Normal Descending Colon: Moderate diverticulosis Sigmoid Colon: Moderate diverticulosis Rectum: Normal Ano-rectum: Mild decrease in anal sphincter tone Colon preparation: Good after copiious irrigation and scattered areas were obscured due to seeds and undigested vegetable matter. Impression and Post Procedure Diagnosis: Colonoscopy Findings: No polyps were detected Random biopsies were obtained from the right and left colon to check for microscopic colitis Moderate diverticulosis seen in the left colon. Mild decrease in anal sphincter tone Plan: Await pathology results Patient has an appointment on 02/15/22 in the [facility] with Huma Mercado M.D. Anorectal manometry with biofeedback if pt continues to have fecal incontinence Repeat Colonoscopy interval based on path results - in 5 years if biopsies are normal Above findings were reviewed with the patient and diverticulosis handout was given in the discharge area Surgeon: Huma Mercado MD Anesthesia: MAC Was an Stock Transfer Clerk used for this Procedure?: Yes Stock Transfer Clerk: Miroslava Wilcox Estimated blood loss (mL): 0 Pathology: other (A. right colon bxs, R/O microscopic colitis B. left colon bxs, R/O microscopic colitis) Condition: stable Disposition: PACU
--- NOTE | 2021-12-25 08:42 | W.PM.OPN ---
Operative Note Operative Note Date of Service: 12/25/21 Narrative: Pre-op diagnosis: Colon cancer screening, fecal incontinence Post-op diagnosis:?other (Diverticulosis) Procedure: COLONOSCOPY TILL CECUM WITH BIOPSIES Consent: Indications for the procedure and potential complications of bleeding, perforation, reaction to medications and missed diagnosis were discussed with the patient and informed consent was obtained. Instrument: Olympus PCF H 190 L variable stiffness pediatric colonoscope Monitoring: Vital signs and clinical assessment, intermittent blood pressure monitoring, continuous EKG monitoring, Pulse oximetry and Carbon Dioxide monitoring were done throughout the procedure. Colon withdrawl time was 18 minutes. Procedure: The patient was placed in the left lateral decubitis position and pre-procedure medications were administered. After a digital rectal examination of the ano-rectum, the video colonoscope was inserted into the rectum and advanced through the colon to the cecum. The colonoscope was slowly withdrawn in a retrograde panoramic fashion and the colon mucosa was carefully examined including a retroflexed view of the rectum. Findings and interventions are described below. Procedure Difficulty: Without difficulty Findings: Terminal Ileum: Not evaluated Cecum:? Normal Ascending Colon:? Normal Transverse Colon:? Normal Descending Colon:? Moderate diverticulosis Sigmoid Colon:? Moderate diverticulosis Rectum:? Normal Ano-rectum:? Mild decrease in anal sphincter tone Colon preparation:? Good after copiious irrigation and scattered areas were obscured due to seeds and undigested vegetable matter. Impression and Post Procedure Diagnosis: Colonoscopy Findings: No polyps were detected Random biopsies were obtained from the right and left colon to check for microscopic colitis Moderate diverticulosis seen in the left colon. Mild decrease in anal sphincter tone Plan: Await pathology results Patient has an appointment on 02/15/22 in the GI Clinic with Huma Mercado M.D. Anorectal manometry with biofeedback if pt continues to have fecal incontinence Repeat Colonoscopy interval based on path results - in 5 years if biopsies are normal Above findings were reviewed with the patient and diverticulosis handout was given in the discharge area Surgeon: Huma Mercado MD Anesthesia:?MAC Was an Pneumatic Systems Operator used for this Procedure?:?Yes Pneumatic Systems Operator:?Miroslava Wilcox Estimated blood loss (mL):?0 Pathology:?other (A. right colon bxs, R/O microscopic colitis? B. left colon bxs, R/O microscopic colitis) Condition:?stable Disposition:?PACU
[2021-12-25 09:40] VITALS: BP 97/41; PULSE 58; RESP 16; TEMP 36.4; O2SAT 100
[2021-12-25 09:55] VITALS: BP 108/52; PULSE 60; RESP 16; TEMP 36.4; O2SAT 100
== END 2021-12-25 10:58 | disposition home or self-care (01) ==
PROVIDERS: PCP Internal Medicine; Visit Provider Internal Medicine Gastroenterology
PROC: 0DJD8ZZ Inspection of Lower Intestinal Tract, Via Natural or Artificial Opening Endoscopic (ICD-10-PCS; CPT 45378; principal; 2021-12-25 14:50)
DX: Z12.11 Encounter for screening for malignant neoplasm of colon (principal); R15.9 Full incontinence of feces; K62.89 Other specified diseases of anus and rectum; K57.30 Diverticulosis of large intestine without perforation or abscess without bleeding; I77.819 Aortic ectasia, unspecified site; F32.A Depression, unspecified; E04.9 Nontoxic goiter, unspecified; E78.5 Hyperlipidemia, unspecified; M81.0 Age-related osteoporosis without current pathological fracture; Z79.899 Other long term (current) drug therapy; Z88.2 Allergy status to sulfonamides; Z88.8 Allergy status to other drugs, medicaments and biological substances; Z87.891 Personal history of nicotine dependence
CPT/HCPCS: 45380; 88305

== ENCOUNTER → 2022-03-01 07:24 | Outpatient (BNVA) | payer MEDICARE, BC, SELFPAY | PROVIDERS: PCP Internal Medicine; Visit Provider Internal Medicine Gastroenterology | DX: Z12.11 Encounter for screening for malignant neoplasm of colon (principal); R15.9 Full incontinence of feces; D64.9 Anemia, unspecified; Z86.19 Personal history of other infectious and parasitic diseases | CPT/HCPCS: Q3014 ==

== ENCOUNTER 2022-03-07 12:19 | Outpatient (REF) | payer MEDICARE, BC, SELFPAY ==
--- NOTE | ~2022-03-07 | MM_ITS ---
EXAMINATION: MM DIAGNOSTIC DIGITAL BREAST TOMOSYNTHESIS, BILATERAL CLINICAL INFORMATION: Due for yearly. 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 Procedure COMPARISON: Mammography: 03/06/2021, 04/07/2020, 03/10/2020, 03/02/2020; outside mammography 12/20/2017 ([facility]). TECHNIQUE: Digital breast tomosynthesis is performed in both the craniocaudal and mediolateral oblique views along with computer-aided detection (CAD). Synthesized 2D images are generated from the tomosynthesis. Additional left magnification exaggerated CC x2 and left magnification ML x2 views are provided. FINDINGS: The breasts are heterogeneously dense, which may obscure small masses (ACR BI-RADS breast composition Category c). Breast tissue composition borders on extremely dense. There are post therapy changes on the left with reduced breast size, surgical clips, scarring, and smooth skin thickening. The right breast has scattered asymmetries similar to prior studies. There is no interval architectural abnormality or developing density or abnormal calcifications. No significant changes. Results are provided to the patient at time of visit by the technologist. MM/MM tomosynthesis diagnostic BI IMPRESSION: -No mammographic evidence of malignancy. -Post therapy changes left breast. ASSESSMENT: BI-RADS 2: Benign RECOMMENDATION: Annual bilateral mammography. This patient's information was entered into a reminder system with a target due date for their next mammogram.
== END 2022-03-07 12:20 | disposition home or self-care (01) ==
LOC: HO.MAMMO 12:19
PROVIDERS: PCP Internal Medicine; Visit Provider Surgery
DX: Z85.3 Personal history of malignant neoplasm of breast (principal); Z98.890 Other specified postprocedural states
CPT/HCPCS: 77062; 77066

== ENCOUNTER → 2022-03-27 15:07 | Outpatient (BNVA) | payer MEDICARE, BC, SELFPAY | PROVIDERS: PCP Internal Medicine; Visit Provider Surgery | DX: C50.912 Malignant neoplasm of unspecified site of left female breast (principal); Z79.811 Long term (current) use of aromatase inhibitors; Z17.0 Estrogen receptor positive status [ER+]; Z92.21 Personal history of antineoplastic chemotherapy; Z92.3 Personal history of irradiation | CPT/HCPCS: 99212 ==

== ENCOUNTER 2022-05-08 10:09 | Outpatient (REF) | payer MEDICARE, BC, SELFPAY ==
[2022-05-08 11:25] LABS: Appearance Urine Clear; Color Urine Yellow; Glucose Urine UA Negative (Negative); Leukocyte Esterase Urine Moderate (2+) (Negative); Nitrite Urine Negative (Negative); Specific Gravity - Urine 1.015 (1.005-1.025); UMIC TRIGGER UA YES; Urine Blood Moderate (2+) (Negative); Urine Ketones Negative (Negative); Urine Protein Negative (Neg-Trace)
[2022-05-08 11:48] LABS: Bacteria Urine None Seen (None Seen); Hyaline Casts Urine 0-2 /LPF (0-2); Squamous Epithelial Cell Urine 0-2 /HPF (0-2); WBC Urine 0-5 /HPF (0-5)
[2022-05-08 12:03] LABS: Alanine Aminotransferase 22 U/L (0-31); Alkaline Phosphatase 50 U/L (39-117); Anion Gap 13 (12-20); Aspartate Amino Transferase 26 U/L (5-31); Bilirubin Total 0.7 mg/dL (0.0-1.0); Blood Urea Nitrogen 19 mg/dL (9-16); Calcium 8.8 mg/dL (8.4-10.2); Carbon Dioxide 26 mmol/L (22-29); Chloride 104 mmol/L (96-108); Cholesterol 152 mg/dL; Estimated Glomerular Filt Rate > 60; Glucose Random 102 mg/dL (60-115); HDL Cholesterol 65 mg/dL; LDL Cholesterol Calculated 78 mg/dl; Sodium 139 mmol/L (135-145); Total Protein 6.5 g/dL (6.5-8.0); Triglycerides 49 mg/dL
== END 2022-05-08 10:10 | disposition home or self-care (01) ==
LOC: HO.HMGCLDS 10:09
PROVIDERS: Absent Provider Psychiatry & Neurology Psychiatry; PCP Internal Medicine; Visit Provider Internal Medicine
DX: D64.9 Anemia, unspecified (principal); E55.9 Vitamin D deficiency, unspecified; E78.5 Hyperlipidemia, unspecified; R55 Syncope and collapse; R31.29 Other microscopic hematuria; R35.0 Frequency of micturition; Z79.899 Other long term (current) drug therapy
CPT/HCPCS: 36415; 80053; 80061; 81001; 87086

== ENCOUNTER 2022-05-31 14:17 | Outpatient (REF) | payer MEDICARE, BC, SELFPAY ==
--- NOTE | ~2022-05-31 | US_ITS ---
EXAMINATION: US RETROPERITONEAL LIMITED (RENAL ONLY) CLINICAL INFORMATION: Other microscopic hematuria. COMPARISON: None TECHNIQUE: Real-time imaging of the kidneys. FINDINGS: RIGHT KIDNEY: 10.1 x 3.8 x 4.6 cm (SAG x AP x TRV). The kidney is normal in size, contour, and echogenicity. Renal cortical thickness is normal. No calculi or focal parenchymal lesions. No hydronephrosis. LEFT KIDNEY: 9.3 x 4.4 x 4.7 cm (SAG x AP x TRV). The kidney is normal in size, contour, and echogenicity. Renal cortical thickness is normal. There is a single 3 mm echogenic focus in the mid to upper left kidney consistent with a nonobstructing calculus. No focal parenchymal lesions or hydronephrosis. US/US renal BI IMPRESSION: Nonobstructing 3 mm left renal calculus.
== END 2022-05-31 14:18 | disposition home or self-care (01) ==
LOC: HO.US 14:17
PROVIDERS: PCP Internal Medicine; Visit Provider Internal Medicine
DX: R31.29 Other microscopic hematuria (principal); R35.0 Frequency of micturition
CPT/HCPCS: 76775

== ENCOUNTER 2022-06-04 13:25 | Outpatient (REF) | payer MEDICARE, BC, SELFPAY ==
--- NOTE | ~2022-06-04 | US_ITS ---
EXAMINATION: US PELVIS LIMITED (BLADDER) CLINICAL INFORMATION: Other microscopic hematuria. COMPARISON: Ultrasound retroperitoneal limited (renal only) 05/31/2022. TECHNIQUE: Real-time imaging of the bladder. FINDINGS: BLADDER: Well distended and normal. Bilateral ureteral jets are demonstrated. Prevoid bladder volume is 251 mL. Postvoid bladder volume is 9.5 mL. US/US bladder IMPRESSION: No significant sonographic abnormality. Post void volume 9.5 mL.
== END 2022-06-04 13:26 | disposition home or self-care (01) ==
LOC: HO.US 13:25
PROVIDERS: PCP Internal Medicine; Visit Provider Internal Medicine
DX: R31.29 Other microscopic hematuria (principal); R35.0 Frequency of micturition
CPT/HCPCS: 76857

== ENCOUNTER → 2022-07-05 09:17 | Outpatient (BNVA) | payer MEDICARE, BC, SELFPAY | PROVIDERS: PCP Internal Medicine; Visit Provider Internal Medicine Gastroenterology | DX: Z12.11 Encounter for screening for malignant neoplasm of colon (principal); R10.11 Right upper quadrant pain; R15.9 Full incontinence of feces; E55.9 Vitamin D deficiency, unspecified | CPT/HCPCS: 99212 ==

== ENCOUNTER 2022-08-09 14:48 | Outpatient (REF) | payer MEDICARE, BC, SELFPAY ==
--- NOTE | ~2022-08-09 | US_ITS ---
EXAMINATION: US ABDOMEN COMPLETE CLINICAL INFORMATION: Right upper quadrant pain. COMPARISON: Bladder ultrasound dated 06/04/2022. Bilateral renal ultrasound dated 05/31/2022. TECHNIQUE: Real-time imaging of the abdominal viscera. FINDINGS: PANCREAS: Normal. ABDOMINAL AORTA: Atherosclerosis of the abdominal aorta. INFERIOR VENA CAVA: Visualized portions are normal. LIVER: Normal. The liver is normal in size. The liver contour is normal. Parenchymal echogenicity is normal. No focal hepatic lesion. There is no intrahepatic biliary duct dilatation seen. GALLBLADDER: The gallbladder is contracted without evidence of stones, sludge, polyps, wall thickening or pericholecystic fluid. COMMON BILE DUCT: Normal in caliber measuring 0.4 cm in diameter. RIGHT KIDNEY: Right renal pelviectasis. No hydronephrosis. No renal calculi or focal parenchymal lesions. The kidney measures 8.0 cm in maximum dimension. LEFT KIDNEY: Left renal pelviectasis. No hydronephrosis. No renal calculi or focal parenchymal lesions. The kidney measures 8.6 cm in maximum dimension. SPLEEN: Normal. The spleen measures 7.9 cm in maximum dimension. FREE FLUID: None. US/US abdomen complete IMPRESSION: Bilateral renal pelviectasis without osmar hydronephrosis. No nephrolithiasis identified. No cholelithiasis or evidence of acute cholecystitis.
== END 2022-08-09 14:49 | disposition home or self-care (01) ==
LOC: HO.US 14:48
PROVIDERS: PCP Internal Medicine; Visit Provider Internal Medicine Gastroenterology
DX: R10.11 Right upper quadrant pain (principal)
CPT/HCPCS: 76700

== ENCOUNTER 2022-08-13 09:44 | Outpatient (REF) | payer MEDICARE, BC, SELFPAY ==
[2022-08-13 17:30] LABS: Urine Cytology See Pathology rpt
== END 2022-08-13 09:45 | disposition home or self-care (01) ==
LOC: HO.LNP 09:44
PROVIDERS: PCP Internal Medicine; Visit Provider Urology
DX: R31.29 Other microscopic hematuria (principal); R35.0 Frequency of micturition; N39.0 Urinary tract infection, site not specified; R35.1 Nocturia; Z79.899 Other long term (current) drug therapy
CPT/HCPCS: 87086; 88112; 99202

== ENCOUNTER → 2022-08-14 12:53 | Outpatient (REF) | payer MEDICARE, BC, SELFPAY ==
--- NOTE | 2022-08-14 12:55 | CA_ITS ---
Transthoracic Echocardiogram Patient (Last, First, Middle): Patria Hooks, Gender: Female Date of : 1945 Age: 76 Procedure Date: 08/14/2022 Procedure Type: Transthoracic Echocardiogram Location: OP Height: 160.02 cm Weight: 54.43 kg BSA: 1.56 m2 Heart Rate: 61 bpm BP: 100 / 60 mmHg Back Tender Fourdrinier: FELIX Referring MD: Viral Masters MD Symptoms: I77.89 - Other specified disorders of arteries and arterioles Study Quality: Adequate ECG Rhythm: Sinus Conclusions: - The left ventricular systolic function is normal. The calculated ejection fraction is 58% by biplane method. - There is mild aortic valve regurgitation. - There is mild dilatation of the ascending aorta measuring 3.70 cm. Findings Left Ventricle Normal left ventricular cavity size. There is normal left ventricular wall thickness. The left ventricular systolic function is normal. The calculated ejection fraction is 58% by biplane method. There is no evidence of regional wall motion abnormalities. Diastolic function is normal for age. LV peak GLS -16.2%. Right Ventricle Normal right ventricular cavity size and systolic function. Atria Both atria are normal in size. Aortic Valve There is a normal trileaflet aortic valve. There is no aortic valve stenosis. There is mild aortic valve regurgitation. Mitral Valve The mitral valve appears normal. There is trace mitral valve regurgitation. There is no mitral valve stenosis. Pulmonic Valve There is trace pulmonic valve regurgitation. Tricuspid Valve There is mild tricuspid valve regurgitation. There is no evidence of pulmonary hypertension. Great Vessels There is mild dilatation of the ascending aorta measuring 3.70 cm. Venous The inferior vena cava is normal in size and collapses greater than 50% with inspiration. Pericardium/Pleural There is no evidence of pericardial effusion. Prior Study Comparison No significant change compared to prior study dated: 08/08/2021. Measurements 2D Linear Measurements IVSd: 0.97 0.6-0.9/0.6-1.0 cm LVIDd: 3.78 3.9-5.3/4.2-5.9 cm LVIDd Index: 2.42 2.4-3.2/2.2-3.1 cm/m2 LVIDs: 2.28 2.0-3.6 cm LVPWd: 0.92 0.7-1.1 cm LA Diam: 2.20 2.7-3.8/3.0-4.0 cm LAIDs Index: 1.41 1.5-2.3 cm/m2 LV Mass: 133.30 67-162/88-224 g LV Mass Index: 85.45 43-95/49-115 g/m2 LVOT Diam: 1.70 3.0+(-)1.3 cm 2D Systolic Function EF 4C: 59.60 >55% EF 2C: 57.30 >55% EF BiP: 57.80 >55% Mitral Valve MV Pk E: 0.48 MV PK A: 0.73 MV Decel Time: 398.00 E/A: 0.70 E'Lateral: 9.25 E'Medial: 3.59 E/E' Med: 13.50 E/E' Lat: 5.20 PHT: 117.00 MVA PHT: 1.88 Decel Petroleum: 1.22 Aortic Valve AoV Pk [place]: 1.34 AoV Mn [place]: 0.93 AoV VTI: 0.25 AoV Pk Grad: 7.00 Aov Mn Grad: 4.00 GLADIS Cont.VTI: 1.61 AI Pk [place]: 3.94 AI Petroleum: 2.18 LVOT LVOT Pk [place]: 0.90 LVOT Mn [place]: 0.64 LVOT VTI: 0.18 LVOT Pk Grad: 3.00 LVOT Mn Grad: 2.00 LVOT Diam: 1.70 LVOT Area: 2.27 Diastolic Function MV Pk E: 0.48 MV Pk A: 0.73 E/A: 0.70 E'Medial: 3.59 E/E' Med: 13.50 E' Laterial: 9.25 E/E' Lat: 5.20 Right Ventricle TAPSE (mm): 17.90 TVS' [place]: 11.50 Tricuspid Valve TR Pk [place]: 2.03 TR Pk Grad: 16.00 RA Press: 3.00 RVSP: 19.00 Great Vessels Aorta Sinus of Valsalva: 3.40 2.0-3.5 cm Ao Asc: 3.70 2.1-3.4 cm Pulmonary Valve PV Pk [place]: 0.69 Peak PV Grad: 2.00 Updated in Other Vendor System with Status of Final Trey Ku MD electronically signed on 08/15/2022 10:12:41 AM with status of Final
== END ==
LOC: HO.CARD 12:53
PROVIDERS: PCP Internal Medicine; Visit Provider Internal Medicine Cardiovascular Disease
DX: I77.89 Other specified disorders of arteries and arterioles (principal)
CPT/HCPCS: 93306; 93356

== ENCOUNTER → 2022-09-11 14:12 | Outpatient (BNVA) | payer MEDICARE, BC, SELFPAY | PROVIDERS: PCP Internal Medicine; Visit Provider Surgery | DX: C50.912 Malignant neoplasm of unspecified site of left female breast (principal); Z98.890 Other specified postprocedural states | CPT/HCPCS: 99212 ==

== ENCOUNTER 2022-09-13 10:09 | Outpatient (REF) | payer MEDICARE, BC, SELFPAY | END 2022-09-13 10:10 | disposition home or self-care (01) | LOC: HO.LAB 10:09 | PROVIDERS: PCP Internal Medicine; Visit Provider Urology | DX: R31.29 Other microscopic hematuria (principal); I77.89 Other specified disorders of arteries and arterioles; N20.0 Calculus of kidney; Z87.440 Personal history of urinary (tract) infections | CPT/HCPCS: 52000; 88121; 93005; 99212; Q3014 ==

== ENCOUNTER 2022-09-14 14:17 | Outpatient (REF) | payer MEDICARE, SELFPAY ==
--- NOTE | ~2022-09-14 | MM_ITS ---
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 Patient notes palpable area upper outer left breast near lumpectomy site. COMPARISON: Mammography: Prior mammography exams including most recent 03/07/2022 TECHNIQUE: Digital breast tomosynthesis is performed in both the craniocaudal and mediolateral oblique views along with computer-aided detection (CAD). Synthesized 2D images are generated from the tomosynthesis. Additional exaggerated left CC view is provided. Ultrasound left breast is targeted to the area of clinical concern. Patient is able to point to the area time of imaging. Grayscale imaging and color Doppler are performed without and with harmonics. FINDINGS: The breasts are heterogeneously dense, which may obscure small masses (ACR BI-RADS breast composition Category c). There are expected post therapy changes left breast similar to prior exam with decreased breast size, surgical clips, and stable scarring. Smooth skin thickening is slightly decreased since prior imaging 03/07/2022. There is no interval mass or architectural abnormality or developing density. No abnormal calcifications. The axilla is unremarkable. Ultrasound targeted to the area of palpable concern shows no cystic or solid mass or architectural abnormality. There is minor scarring related to the lumpectomy. No skin thickening or edema tracking in soft tissue planes. Results are discussed with the patient at time of visit. MM/MM tomosynthesis diagnostic LT IMPRESSION: -Post therapy changes similar to prior exam. -No mammographic or ultrasound evidence of malignancy. ASSESSMENT: BI-RADS 2: Benign RECOMMENDATION: 1. Patient should be managed based on the clinical impression. 2. Otherwise, annual bilateral mammography. This patient's information was entered into a reminder system with a target due date for their next mammogram.
== END 2022-09-14 14:18 | disposition home or self-care (01) ==
LOC: HO.MAMMO 14:17
PROVIDERS: Visit Provider Surgery
DX: Z85.3 Personal history of malignant neoplasm of breast (principal); Z98.890 Other specified postprocedural states
CPT/HCPCS: 76642; 77061; 77065

== ENCOUNTER 2022-10-11 08:25 | Outpatient (AMB) | payer MEDICARE, BC, SELFPAY ==
--- NOTE | 2022-10-11 08:31 | MHC.OFFVIS ---
Vital Signs 10/11/22 08:47 Height 5 ft 2 in Weight 118 lb BMI 21.6 BP 111/58 L Blood Pressure Location Lt brachial Position Sitting Pulse 61 Intake Visit Reasons: Anemia Intake Note: Patient follow up for Anemia and US results Patient cc: abdominal bloating on and off, and loose BM. 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 IMAGING STUDIES: 08/09/22 ABD US SHOWED: Bilateral renal pelviectasis without osmar hydronephrosis. No nephrolithiasis identified. ?No cholelithiasis or evidence of acute cholecystitis. ENDOSCOPIC STUDIES:? 12/25/2021 COLONOSCOPY SHOWED: No polyps were detected Random biopsies were obtained from the right and left colon to check for microscopic colitis: A.? Colon, right, biopsy:? Colonic mucosa within normal limits; negative for microscopic colitis. B.? Colon, left, biopsy:? Colonic mucosa within normal limits; negative for microscopic colitis. Moderate diverticulosis seen in the left colon. Mild decrease in anal sphincter tone Plan:? Patient has an appointment on 02/15/22 in the GI Clinic with Huma Mercado M.D. Anorectal manometry with biofeedback if pt continues to have fecal incontinence Repeat Colonoscopy interval based on path results - in 10 years if biopsies are normal TODAY'S VISIT: Lab and abd US results reviewed. Anorectal manometry (09/05/22) report requested from [facility] RUQ pain has been less. Has noted she has pain if she eats too much fat. Has been paying attention to not eating too many nuts at one time Patient follow op for Anemia. Patient cc: tiredness, abdominal bloating and RLQ pain. Denies any other GI issues Was having a lot of problems with the GUT and incontinence has a BM daily Changed her diet and taking chicken and vegetables (broccoli, cauliflower and carrots), roasted chick peas and corn tortillas and having much less incontinence and less gas Seen by Dr Savage at [facility] and is scheduled for Anorectal Manometry on 09/05/22. PAST VISITS: Colonoscopy results were reviewed with the patient Lack of control of stools is a little better. Pt is scheduled for an appt at [facility] with Dr Savage on 03/12/22 at [address] [facility] (3rd floor) - unclear if it is for Manometry or a clinic appt) pt CC: abd bloating when eatting beans , stools x3 days , goes without warning on herself? Pt notes fecal incontinence for the past few yrs. Noted watery stools without any warning. A year ago she ended up having stool in her pants without any warning. Episodes are erratic.? She is using a toilet paper in the crack of her butt. Tries to get to a bathroom when she notes some pressure - happens multiple times during the week. Has a BM 3 times - stool can be formed or mushy and denies diarrhea. Stool always float. Diagnosed with metastatic breast cancer in 03/2020 - had 2 surgeries and 4 sessions of chemo and radiation Has been trying to eat more fiber, vegetables, rice and beans to make stool less mushy. Prescribes atorvastating for high cholesterol - has'nt started it yet. Has been using fish and dairy as source of protein. Wakes up with a horrible taste in her mouth - taking apple cider vinegar which is helping Patient denies symptoms of heartburn, dysphagia, nausea, vomiting. Lost weight during chemo and slowly regaining it back.? Denies black stools or rectal bleeding. Patient denies major cardiac or pulmonary problems, admits to loud snoring and denies sleep apnea Denies problems with anesthesia in the past. Denies being on chronic anticoagulation. Past smoking and ETOH - none in 1982. Heavy drinker in the past - used to have seizures when she was drinking , no children. 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 PAST EGD/COLONOSCOPY:? Per pt 2016 colonoscopy was normal. PAST GI HISTORY BY REVIEW OF MEDICAL RECORDS: 05/2018 PATIENT WAS SEEN BY DR. OBANDO: 1.?This patient has been referred by Dr. Neumann for assessment of fecal? incontinence. 2.?Patient states, I just started seeing Dr. Neumann as a primary care. I? told her about it and she referred me here . 3.?Pt c/o onset after 2016 colo, before then had fecal staining, s/p colo? fecal incontinence lasted for days then weeks, stools are very loose and? mushy , occasionally would know she wasn't going to make it to the bathroom,? other times did not know she had a bm until she felt the wetness/discomfort, has? tried Metamucil to add fiber to diet, increased raw veggie fiber and fruits,? added more bread into diet, all of these things have helped some to bulk up? stool, has noticed this has helped to where incontinence is less frequent, bms? In general can be inconsistent in consistency, stools are occasionally solid,? denies rectal bleeding or blood in stool 4.?Pt sts years ago, 2006, she began having gut trouble all the time ,? constant diarrhea, pcp made appt c GI (Dr. Tolentino), but pcp also mentioned she? may have a gluten sensitivity. She ceased gluten since then. She noticed the? absence of gluten in her diet stopped the diarrhea at that time. History of Present Illness Symptom(s):? 72 F referred for fecal incontinence. The? patient states that since her last colonoscopy in 2016, which was normal, she? has periodically felt wetness in her underwear and found that she had passed? stool. Prior to this she had noted occasional staining of her underwear but no? gross stool. She has tried increasing fiber in her diet with some improvement.? She denies rectal bleeding or other symptoms and feels generally healthy. The? patient is A1. No history of anorectal surgery. She has no history of? vaginal births or episiotomies. Assessments1. Fecal incontinence - R15.9 (Primary) 72 F presents with chronic intermittent fecal incontinence. She has good? resting and squeeze pressures . I do not feel any sphincter defect. She does? describe improvement after she started on high fiber diet. I anticipate further? improvement of her continence once we are able to bulk upper her stools and make? the consistency more towards well formed. I instructed her to add fiber? supplements with Metamucil or bene fiber. She says she prefers to avoid any? surgical intervention as much as possible. She will se me again in 2 months? for an?up [facility] Medical History Ascending aorta enlargement Chest pain Annual physical exam Seizures History of alcohol dependence Hx: UTI (urinary tract infection) Lab test negative for COVID-19 virus Fecal incontinence Hyperlipidemia History of shingles Goiter, nodular Depression Osteoporosis Surgical History History of eye surgery History of lumpectomy of left breast History of colonoscopy History of tonsillectomy History of foot surgery History of tubal ligation History of cataract surgery Family History Father Pulmonary fibrosis HTN (hypertension) CAD (coronary artery disease) Mother CAD (coronary artery disease) HTN (hypertension) COPD (chronic obstructive pulmonary disease) Pancreatitis Maternal Grandmother History of breast cancer Family/Other History of breast cancer Sister Mental health disorder Other Substance use disorder Social History Housing: House Are you a primary home care provider to a significant other at home: No Do you presently have visiting nurse or other home services: No Alcohol intake: former Year quit: 1982 Patient Tobacco Use Status: Former Tobacco user Tobacco use type: Cigarette Years Smoked: 13 +/- Current occupational status: retired Cognitive needs: No Hearing needs: No Vision needs: Yes Review of Systems Const All systems reviewed & are unremarkable except as noted in HPI and below Physical Exam Vital Signs: Last Vital Signs Pulse 61 10/11/22 08:47 BP 111/58 L 10/11/22 08:47 BMI result Body Mass Index 21.6 Const General: healthy appearing and no acute distress Nutritional Appearance: average body habitus Orientation/consciousness: patient oriented x3 Limitations: no limitations HEENT Head: Yes normal to inspection Ears: hearing grossly normal bilaterally Eyes Sclerae: sclerae normal Pupils: Equal, round and reactive pupils present Neck Neck: Yes normal visual inspection Chest Chest palpation & inspection: normal inspection of the chest Resp Effort & Inspection: normal respiratory effort Auscultation: clear to auscultation bilaterally Cardio Palpation: normal PMI Rate: regular rate Rhythm: regular rhythm Heart sounds: S1 normal heart sound present, S2 normal heart sound present and no murmurs GI Palpation (GI): Soft to palpation, nontender and No hepatosplenomegaly present Auscultation: normal bowel sounds Rectal Exam - Female: deferred Skin General skin exam: no rashes or lesions noted Neuro General: patient oriented x3, gait normal and moves all extremities Cranial nerves: Yes Equal, round and reactive pupils present Psych Appearance: grossly normal Mental Status: mental status grossly normal Assessment & Plan Assessment & Plan (1) RUQ abdominal pain: Code(s): R10.11 - Right upper quadrant pain Category: Medical (2) Colon cancer screening: Comment: 12/25/2021 COLONOSCOPY SHOWED: No polyps were detected Random biopsies were obtained from the right and left colon to check for microscopic colitis: A.? Colon, right, biopsy:? Colonic mucosa within normal limits; negative for microscopic colitis. B.? Colon, left, biopsy:? Colonic mucosa within normal limits; negative for microscopic colitis. Moderate diverticulosis seen in the left colon. Mild decrease in anal sphincter tone Plan: Anorectal manometry with biofeedback if pt continues to have fecal incontinence Repeat Colonoscopy interval based on path results - in 10 years if pt remains in stable health Code(s): Z12.11 - Encounter for screening for malignant neoplasm of colon Category: Medical (3) Fecal incontinence: Comment: colonoscopy -2016 Code(s): R15.9 - Full incontinence of feces Category: Medical (4) Anemia: Code(s): D64.9 - Anemia, unspecified Category: Medical Plan 77 YF with hyper lipidemia, generalized anxiety disorder and sinus bradycardia referred by Dr Neumann for colon cancer screening and fecal incontinence. Patient had a colonoscopy in March [address] Masterson. 12/25/21 Colonoscopy was performed and results as noted above FU colon in 10 yrs if pt remains in stable health.? Patient was referred to [facility] for anorectal manometry in 08/2021 with biofeedback She was seen in the GI clinic at [facility] on 03/12/22 and anorectal manometry was ordered - scheduled on 09/05/22 10/11/22 Anorectal manometry results requested from [facility] FU in 6 months Coding Level of Care Code Est Pt Level 4 (46426) Diagnoses RUQ abdominal pain R10.11 Colon cancer screening Z12.11 Fecal incontinence R15.9 Anemia D64.9 Time Spent (min) 20
[2022-10-11 08:47] VITALS: BP 111/58; PULSE 61; BMI 21.6
== END 2022-10-11 09:24 | disposition home or self-care (01) ==
PROVIDERS: PCP Internal Medicine; Visit Provider Internal Medicine Gastroenterology
DX: R10.11 Right upper quadrant pain (principal); Z12.11 Encounter for screening for malignant neoplasm of colon; R15.9 Full incontinence of feces; D64.9 Anemia, unspecified
CPT/HCPCS: 99499

== ENCOUNTER → 2022-10-11 08:25 | Outpatient (BNVA) | payer MEDICARE, BC, SELFPAY | PROVIDERS: PCP Internal Medicine; Visit Provider Internal Medicine Gastroenterology ==

== ENCOUNTER 2022-10-19 10:38 | Outpatient (AMB) | payer MEDICARE, BC, SELFPAY ==
--- NOTE | 2022-10-19 10:43 | AM.OFFWIN_ITS ---
Intake Vital Signs 10/19/22 10:56 BP 118/64 Blood Pressure Location Rt brachial Position Sitting Pulse 68 Pulse Source Pulse Oximeter Temp 98 F Temp Source Temporal Artery Scan Pulse Oximetry (%) 93 Oxygen Delivery Method Room Air Intake Visit Reasons: EP UTI? Intake Note: Patient here for possible UTI, she states she had a low grade fever yesterday. Patient Tobacco Use Status: Former Tobacco user Quit Date: 1982 Allergies procaine [From Novocain] Allergy (Intermediate, Verified 10/19/22 10:56) Swelling Sulfa (Sulfonamide Antibiotics) Allergy (Intermediate, Verified 10/19/22 10:56) Itching Do you need a note to return to daycare/school/sports/work: No HPI HPI Comments History of Present Illness Details This is a 77-year-old female with past medical history significant for recurrent urinary tract infections who presents to the office today for sick visit. Patient reports increased urinary frequency x2 days. The patient states she has felt feverish but when she took her temperature yesterday was 98.9? F. she denies any dysuria. She denies any gross hematuria. She denies any back or flank pain. She denies any abdominal pain or nausea/vomiting/diarrhea. Patient otherwise feels well. [facility] Medical History (Updated 09/13/22 @ 15:39 by Charissa Turcios) Annual physical exam Ascending aorta enlargement Chest pain Depression Fecal incontinence Goiter, nodular History of alcohol dependence History of shingles Hx: UTI (urinary tract infection) Hyperlipidemia Lab test negative for COVID-19 virus Osteoporosis Seizures Surgical History History of cataract surgery History of colonoscopy History of eye surgery History of foot surgery History of lumpectomy of left breast History of tonsillectomy History of tubal ligation Family History Father Pulmonary fibrosis HTN (hypertension) CAD (coronary artery disease) Mother CAD (coronary artery disease) HTN (hypertension) COPD (chronic obstructive pulmonary disease) Pancreatitis Maternal Grandmother History of breast cancer Family/Other History of breast cancer Social History Housing: House Are you a primary student career development specialist to a significant other at home: No Do you presently have visiting nurse or other home services: No Alcohol intake: former Year quit: 1982 Patient Tobacco Use Status: Former Tobacco user Quit Date: 1982 Tobacco use type: Cigarette Years Smoked: 13 +/- Current occupational status: retired Cognitive needs: No Hearing needs: No Vision needs: Yes Review of Systems Const All systems reviewed & are unremarkable except as noted in HPI and below Denies chills and Denies fever(s) Eyes Reports no additional complaints ENT Reports no additional complaints Card Reports no additional complaints Resp Reports no additional complaints GI Denies abdominal pain, Denies GI cramping, Denies diarrhea, Denies nausea and Denies vomiting Details: + frequenct Denies hematuria, Denies dysuria and Denies urinary urgency Musc Reports no additional complaints Skin/Breast Reports system reviewed and no additional complaints, except as documented Neuro Reports no additional complaints Psych Reports no additional complaints Endo Reports no additional complaints Cesar/Lymph Reports no additional complaints Aller/Immun Reports no additional complaints Physical Exam Vital Signs: Last Vital Signs Temp 98 F 10/19/22 10:56 Pulse 68 10/19/22 10:56 BP 118/64 10/19/22 10:56 Pulse Ox 93 10/19/22 10:56 Oxygen Delivery Method Room Air 10/19/22 10:56 Const General: cooperative, healthy appearing and no acute distress Orientation/consciousness: patient oriented x3 HEENT Head: Yes normal to inspection Ears: hearing grossly normal bilaterally General nose exam: Normal external nose present Face and sinus: Yes normal facial exam Mouth: Normal oral and palatal mucosa present Eyes General: appearance normal, both eyes and all related structures Pupils: Equal, round and reactive pupils present EOM: EOMs intact bilaterally Resp Effort & Inspection: normal respiratory effort Auscultation: clear to auscultation bilaterally Cardio Rate: regular rate Rhythm: regular rhythm Heart sounds: no gallops, no murmurs and no rubs GI Inspection: Yes normal to inspection and No distended Palpation (GI): Soft to palpation and nontender General: Yes no CVA tenderness Back/Spine/Pelvis Back: no CVA tenderness Skin General skin exam: no rashes or lesions noted Neuro General: patient oriented x3 Cranial nerves: Yes CN's II-XII intact bilaterally and Yes Equal, round and charles ctive pupils present Motor exam (neuro): 5/5 motor strength present throughout Results AMB Urinalysis, Automated UA Leukoctes 0 Radha/uL Last Edit by MAGALI Mercado on 10/19/22 11:11 UA Nitrite Negative [facility] on 10/19/22 11:11 UA Urobilinogen 0 mg/dL Last Edit [facility] on 10/19/22 11: 11 UA Protein 0 mg/dL Last Edit by [facility], [facility] on 10/19/22 11:11 UA pH 6.0 Last Edit by [facility], [facility] on 10/19/22 11:11 UA Blood 200 [place]/uL Last Edit by [facility], [facility] on 10/19/22 11:11 UA Specific [place] 1.005 [facility] on 10/19/22 11:11 UA Ketone Negative Last Edit [facility] on 10/19/22 11:11 UA Bilirubin 0 mg/dL Last Edit [facility] on 10/19/22 11:11 UA Glucose 0 mg/dL Last Edit [facility] on 10/19/22 11:11 Results Reviewed Results Reviewed: Laboratory Last Values Urine pH (Auto) 6.0 10/19/22 11:08 Specific [place] (Auto) 1.005 10/19/22 11:08 Urine Protein (Auto) 0 mg/dL 10/19/22 11:08 Glucose (UA)(Auto) 0 mg/dL 10/19/22 11:08 Urine Ketones (Auto) Negative 10/19/22 11:08 Urine Blood (Auto) 200 [place]/uL 10/19/22 11:08 Urine Nitrite (Auto) Negative 10/19/22 11:08 Urine Bilirubin (Auto) 0 mg/dL 10/19/22 11:08 Urine Urobilinogen (Auto) 0 mg/dL 10/19/22 11:08 Leukocyte Esterase (Auto) 0 Radha/uL 10/19/22 11:08 Assessment & Plan Assessment & Plan (1) Recurrent UTI: Code(s): N39.0 - Urinary tract infection, site not specified Plan This is a 77-year-old female presenting to the office today with complaints of urinary frequency. POCT urinalysis positive for RBCs but negative for nitrite/leukocyte esterase. Patient denies any flank or back pain and she has no CVA tenderness to palpation. Patient likely has acute cystitis with hematuria. Patient started on p.o. ciprofloxacin 250 mg twice daily. Patient encouraged to follow-up with her urologist due to frequent UTIs. Patient was advised to follow-up here go directly to the emergency room if she were to develop back/flank pain, fever/chills, or persistent/worsening symptoms. Orders: Orders AMB Urinalysis Automated Today Z13.9 - Encounter for screening, unspecified Medications: New ciprofloxacin HCl 250 mg PO BID 10 tabs 0RF Coding Level of Care Code Est Pt Level 3 (32136) Diagnoses Recurrent UTI N39.0
[2022-10-19 10:56] VITALS: BP 118/64; PULSE 68; TEMP 36.6; O2SAT 93
== END 2022-10-19 11:34 | disposition home or self-care (01) ==
PROVIDERS: PCP Internal Medicine; Visit Provider Physician Assistant Medical
DX: Z13.9 Encounter for screening, unspecified (principal); N39.0 Urinary tract infection, site not specified
CPT/HCPCS: 81003; 99213

== ENCOUNTER 2022-11-07 12:47 | Outpatient (AMB) | payer MEDICARE, BC, SELFPAY ==
[2022-11-07 13:11] VITALS: BP 116/62; PULSE 72; O2SAT 99; BMI 20.9
--- NOTE | 2022-11-07 13:11 | MHC.PC.OV ---
Vital Signs 11/07/22 13:11 Height 5 ft 2.5 in Weight 116 lb BMI 20.9 BP 116/62 Blood Pressure Location Rt brachial Position Sitting Pulse 72 Pulse Source Pulse Oximeter Pulse Oximetry (%) 99 Oxygen Delivery Method Room Air Intake Visit Reasons: Memory Issue's Intake Note: Pt is here today for a follow up visit,Pt c/o memory issues since beginning of this year. Allergies procaine [From Novocain] Allergy (Intermediate, Verified 11/07/22 13:13) Swelling Sulfa (Sulfonamide Antibiotics) Allergy (Intermediate, Verified 11/07/22 13:13) Itching Medication List - Last Reconciled 11/07/22 by Iliana Neumann MD alendronate-vitamin D3 70 mg- 2,800 unit (Fosamax Plus D) 1 tab PO QWEEK atorvastatin (Lipitor) 20 mg PO DAILY 90 days calcium carbonate-vitamin D2 600 mg calcium- 200 unit 1 tab PO DAILY fluoxetine 40 mg PO DAILY letrozole 2.5 mg PO DAILY multivitamin 1 tab PO DAILY Tobacco use date assessed: 11/07/22 Fall risk assessment: No Falls in past year Last assessed Fall Risk: 11/07/22 Dental Screening Dental Screen Date: 11/07/22 Did you have a dental visit in the last 12 months?: Yes Did you have a dental problem in the last 6 months where you did not have access to dental care?: No Was dental information given to patient?: Patient has dentist HPI Memory Issue's HPI Details Patient presents for the follow-up of chronic depression hyperlipidemia and short-term memory impairment. Patient follows up with psychiatrist for chronic depression and stop taking gabapentin because of worsening short-term memory. Patient has been physically active walking 5 times a week and socially engaged. She denies depression. Patient reports difficulty recalling familiar names or driving to the stores. [facility] Medical History Annual physical exam Ascending aorta enlargement Chest pain Depression Fecal incontinence Goiter, nodular History of alcohol dependence History of shingles Hx: UTI (urinary tract infection) Hyperlipidemia Lab test negative for COVID-19 virus Osteoporosis Seizures Surgical History History of cataract surgery History of colonoscopy History of eye surgery History of foot surgery History of lumpectomy of left breast History of tonsillectomy History of tubal ligation Family History Father Pulmonary fibrosis HTN (hypertension) CAD (coronary artery disease) Mother CAD (coronary artery disease) HTN (hypertension) COPD (chronic obstructive pulmonary disease) Pancreatitis Maternal Grandmother History of breast cancer Family/Other History of breast cancer Sister Mental health disorder Other Substance use disorder Social History Housing: House Are you a primary multi care technician to a significant other at home: No Do you presently have visiting nurse or other home services: No Alcohol intake: former Year quit: 1982 Patient Tobacco Use Status: Former Tobacco user Quit Date: 1982 Tobacco use type: Cigarette Years Smoked: 13 +/- Current occupational status: retired Cognitive needs: No Hearing needs: No Vision needs: Yes Questionnaire Thrive Questionnaire Date Thrive assessed: 11/07/22 I am a: Patient What is your living situation today?: I have a steady place to live Within the past 12 months, did the food you bought not last and you didn't have the money to get more?: Never true Within the past 12 months, did you worry whether your food would run out before you got money to buy more?: Never true Do you have trouble paying for medicines?: No Do you have trouble getting transportation to medical appointments?: No Do you have trouble paying your heating and electricity bill?: No Do you have trouble taking care of your child, family member or friend?: No Do you have trouble with day-to-day activities such as bathing, preparing meals, shopping, managing finances, etc.?: No Are you currently unemployed and looking for a job?: No Are you interested in more education?: No AUDIT C Alcohol Use Questionnaire (AUDIT-C) 1. How often do you have a drink containing alcohol?: Never 3. How often do you have six or more drinks on one occasion?: Never Total Score: 0 CANDY-7 AMB Questionnaire CANDY-7 Date CANDY - 7 assessed: 11/07/22 Source: Developed by Drs. Bret Howell, Rosemary Clarke, Master Cadet and colleagues, with an educational anival from [employer]. CANDY-7 Assessment Billing CANDY-7 Assessment Tool: pt declined-do not bill Review of Systems Const All systems reviewed & are unremarkable except as noted in HPI and below Reports no additional complaints Eyes Reports no additional complaints ENT Reports no additional complaints Card Reports no additional complaints Resp Reports no additional complaints GI Reports no additional complaints Physical exam (Primary Care) Vital Signs: Last Vital Signs Pulse 72 11/07/22 13:11 BP 116/62 11/07/22 13:11 Pulse Ox 99 11/07/22 13:11 Oxygen Delivery Method Room Air 11/07/22 13:11 BMI result Body Mass Index 20.9 Tobacco/Smoking Status: Tobacco use Status Tobacco use date assessed 11/07/22 11/07/22 13:19 Patient Tobacco Use Status Former Tobacco user 11/07/22 13:19 Tobacco use type Cigarette 11/07/22 13:11 Thrive Assessment: Date of Thrive Assessment Date Thrive assessed 11/07/22 11/07/22 13:19 Const General: no acute distress HENMT Head: Yes normal to inspection Face and sinus: Yes normal facial exam Eyes General: appearance normal, both eyes and all related structures Neck Neck: Yes supple Resp Effort & Inspection: normal respiratory effort Auscultation: clear to auscultation bilaterally Cardio Rhythm: regular rhythm Heart sounds: S1 normal heart sound present and S2 normal heart sound present GI Inspection: Yes normal to inspection Palpation (GI): Soft to palpation Percussion: Yes normal to percussion Auscultation: normal bowel sounds Assessment and Plan Assessment & Plan (1) Memory deficit: Code(s): R41.3 - Other amnesia Plan: Vitamin B12 TSH level will be checked patient will be referred for sleep studies to rule out sleep apnea. She will schedule an appointment for neuropsychiatric evaluation at [facility] (2) Sleep apnea: Code(s): G47.30 - Sleep apnea, unspecified (3) Invasive ductal carcinoma of breast: Comment: s/p lumpectomy,RTx and chemo 2020, f/u with oncology/surgery Code(s): C50.919 - Malignant neoplasm of unspecified site of unspecified female breast Qualifiers: Laterality: left Qualified Code(s): C50.912 - Malignant neoplasm of unspecified site of left female breast Plan: Follow-up with oncology (4) Hyperlipidemia: Comment: On atorvastatin Code(s): E78.5 - Hyperlipidemia, unspecified Plan: Continue statin (5) CANDY (generalized anxiety disorder): Code(s): F41.1 - Generalized anxiety disorder Plan: Continue medications and follow-up with psychiatrist Orders: Orders Vitamin B12 and Folate Today R41.3 - Other amnesia Hemoglobin A1c Today R41.3 - Other amnesia TSH reflex Free T4 Today R41.3 - Other amnesia RT home sleep study Today G47.30 - Sleep apnea, unspecified Coding Level of Care Code Est Pt Level 4 (10637) Diagnoses Memory deficit R41.3 Sleep apnea G47.30 Invasive ductal carcinoma of breast C50.912 Laterality: left Hyperlipidemia E78.5 CANDY (generalized anxiety disorder) F41.1
== END 2022-11-07 14:51 | disposition home or self-care (01) ==
PROVIDERS: PCP Internal Medicine; Visit Provider Internal Medicine
DX: R41.3 Other amnesia (principal); G47.30 Sleep apnea, unspecified; C50.912 Malignant neoplasm of unspecified site of left female breast; E78.5 Hyperlipidemia, unspecified; F41.1 Generalized anxiety disorder
CPT/HCPCS: 99214

== ENCOUNTER 2022-11-07 14:06 | Outpatient (REF) | payer MEDICARE, SELFPAY ==
[2022-11-07 17:08] LABS: Estimated Average Glucose 108 mg/dL; Hemoglobin A1c % 5.4 %
[2022-11-07 17:28] LABS: TSH reflex Free T4 0.96 uIU/mL (0.32-4.0)
[2022-11-07 17:40] LABS: Folate 17.3 ng/mL (> or = 4.0); Vitamin B12 542 pg/mL (200-900)
== END 2022-11-07 14:07 | disposition home or self-care (01) ==
LOC: HO.HMGCLDS 14:06
PROVIDERS: PCP Internal Medicine; Visit Provider Internal Medicine
DX: R41.3 Other amnesia (principal)
CPT/HCPCS: 36415; 82607; 82746; 83036; 84443

== ENCOUNTER 2022-11-20 14:37 | Outpatient (REF) | payer MEDICARE, BC, SELFPAY ==
--- NOTE | ~2022-11-20 | MM_ITS ---
EXAMINATION: BONE DENSITOMETRY CLINICAL INDICATION: Osteoporosis. COMPARISON: Baseline BD dated 11/16/2020. TECHNIQUE: Using a [employer] DXA System (software version: 13.1) manufactured by [employer], dual-energy x-ray absorptiometry was performed of the lumbar spine and left hip. The images are of good technical quality. Summary results are attached. FINDINGS: LEFT FEMUR, NECK: Current: BMD 0.755 g/cm2, Z-score 0.1, T-score -2.0, osteopenia. Baseline: BMD 0.730 g/cm2. LEFT FEMUR, TOTAL: Current: BMD 0.745 g/cm2, Z-score -0.1, T-score -2.1, osteopenia, 1.6% increase from baseline (<5% change is not significant). Baseline: BMD 0.733 g/cm2. AP SPINE L1-L4: Current: BMD 0.696 g/cm2, Z-score -1.9, T-score -4.0, osteoporosis, 2.2% decrease from baseline (<5% change is not significant). Baseline: BMD 0.712 g/cm2. IDENTIFIED RISK FACTORS: Anticonvulsant, early menopause, height loss, osteoporosis, secondary osteoporosis. HISTORY OF FRACTURE: None listed. MEDICATIONS: Calcium supplements or multivitamin, vitamin D, bisphosphonate, ERT/SERMS. MM/XR DEXA axial skeleton IMPRESSION: 1. DIAGNOSIS: Osteoporosis based on the lowest T-score value of -4.0 in the lumbar spine applying World Health Organization criteria. 2. 10-YEAR FRACTURE RISK PREDICTION, FRAX: According to the guidelines, FRAX calculation should only be performed on patients in the osteopenia bone density category. Therefore, FRAX was not performed on this patient. 3. Treatment Recommendations: NOF guidelines recommend consideration for treatment in postmenopausal women and men age 50 and older presenting with the following: -A hip or vertebral (clinical or morphometric) fracture. -T-score less than or equal to -2.5 at the femoral neck or spine after appropriate evaluation to exclude secondary causes. -Low bone mass at the hip or spine and a 10-year fracture probability by FRAX of greater than or equal to 3% for hip fracture or greater than or equal to 20% for major osteoporotic fracture based on the [place] adapted WHO algorithm. 4. Other Recommendations: All treatment decisions require clinical judgment and consideration of individual patient factors, including patient preferences, comorbidities, previous drug use, risk factors not captured in the FRAX model (e.g. frailty, falls, vitamin D deficiency, increased bone turnover, interval significant decline in bone density) and possible under or overestimation of fracture risk by FRAX. Additional medical evaluation for secondary cause of low bone mineral density may be appropriate. FUTURE SCAN RECOMMENDATION: People with diagnosed cases of osteoporosis or at high risk for fracture should have regular bone mineral density tests. For patients eligible for Medicare, routine testing is allowed once every 2 years. The testing frequency can be increased to one year for patients who have rapidly progressing disease, those who are receiving or discontinuing medical therapy to restore bone mass, or have additional risk factors.
== END 2022-11-20 14:38 | disposition home or self-care (01) ==
LOC: HO.MAMMO 14:37
PROVIDERS: PCP Internal Medicine; Visit Provider Internal Medicine
DX: Z13.820 Encounter for screening for osteoporosis (principal); Z78.0 Asymptomatic menopausal state; M81.0 Age-related osteoporosis without current pathological fracture
CPT/HCPCS: 77080

== ENCOUNTER → 2022-11-20 15:00 | Outpatient (BNV) | payer MEDICARE, BC, SELFPAY | PROVIDERS: PCP Internal Medicine; Visit Provider Radiology Diagnostic Radiology | DX: M81.0 Age-related osteoporosis without current pathological fracture (principal) | CPT/HCPCS: 77080 ==

== ENCOUNTER → 2022-11-21 10:53 | Outpatient (REF) | payer MEDICARE, BC, SELFPAY | LOC: HO.SL 10:53 | PROVIDERS: PCP Internal Medicine; Visit Provider Internal Medicine | DX: G47.30 Sleep apnea, unspecified (principal) | CPT/HCPCS: 95806 ==

== ENCOUNTER → 2022-11-21 11:03 | Outpatient (BNV) | payer MEDICARE, BC, SELFPAY | PROVIDERS: PCP Internal Medicine; Visit Provider Internal Medicine | DX: R06.83 Snoring (principal) | CPT/HCPCS: 95806 ==

== ENCOUNTER 2023-02-04 12:24 | Outpatient (AMB) | payer MEDICARE, BC, SELFPAY ==
[2023-02-04 14:42] VITALS: BP 130/70; PULSE 70; TEMP 36.6; O2SAT 98; BMI 21.7
--- NOTE | 2023-02-04 14:42 | MHC.OFFWIV ---
Intake Vital Signs 02/04/23 14:42 Height 5 ft 2.5 in Weight 120 lb 8 oz BMI 21.7 BP 130/70 Blood Pressure Location Rt brachial Position Sitting Pulse 70 Pulse Source Pulse Oximeter Temp 97.8 F Temp Source Temporal Artery Scan Pulse Oximetry (%) 98 Oxygen Delivery Method Room Air Intake Visit Reasons: EP Swelling Lft Foot [phone] Intake Note: pt is here for c/o swelling of left arm, concerns due to same side she had breast cancer, denies pain but skin is tight shoulder downn to hand Patient Tobacco Use Status: Former Tobacco user Quit Date: 1982 Allergies procaine [From Novocain] Allergy (Intermediate, Verified 02/04/23 15:13) Swelling Sulfa (Sulfonamide Antibiotics) Allergy (Intermediate, Verified 02/04/23 15:13) Itching Medication List - Last Reconciled 02/04/23 by Nahun Mae MD alendronate-vitamin D3 70 mg- 2,800 unit (Fosamax Plus D) 1 tab PO QWEEK atorvastatin (Lipitor) 20 mg PO DAILY 90 days calcium carbonate-vitamin D2 600 mg calcium- 200 unit 1 tab PO DAILY citalopram (Celexa) 20 mg PO BID multivitamin 1 tab PO DAILY tamoxifen 20 mg PO DAILY Do you need a note to return to daycare/school/sports/work: Yes HPI EP Swelling Lft Foot [phone] HPI Details 77-year-old female presents to the office for a sick visit. Patient reports that her left upper extremity is swollen compared to the right. She does not recall any history of fall or injury. She has noted that the upper extremity is swollen for at least 3 weeks. Patient has history of a lumpectomy in 2020. Recently she was switched to tamoxifen approximately 2 months ago. [facility] Medical History Annual physical exam Ascending aorta enlargement Chest pain Depression Fecal incontinence Goiter, nodular History of alcohol dependence History of shingles Hx: UTI (urinary tract infection) Hyperlipidemia Lab test negative for COVID-19 virus Osteoporosis Seizures Surgical History History of cataract surgery History of colonoscopy History of eye surgery History of foot surgery History of lumpectomy of left breast History of tonsillectomy History of tubal ligation Family History Father Pulmonary fibrosis HTN (hypertension) CAD (coronary artery disease) Mother CAD (coronary artery disease) HTN (hypertension) COPD (chronic obstructive pulmonary disease) Pancreatitis Maternal Grandmother History of breast cancer Family/Other History of breast cancer Sister Mental health disorder Other Substance use disorder Social History Housing: House Are you a primary healthcare specialist to a significant other at home: No Do you presently have visiting nurse or other home services: No Alcohol intake: former Year quit: 1982 Patient Tobacco Use Status: Former Tobacco user Quit Date: 1982 Tobacco use type: Cigarette Years Smoked: 13 +/- Current occupational status: retired Cognitive needs: No Hearing needs: No Vision needs: Yes Physical Exam Vital Signs: Last Vital Signs Temp 97.8 F 02/04/23 14:42 Pulse 70 02/04/23 14:42 BP 130/70 02/04/23 14:42 Pulse Ox 98 02/04/23 14:42 Oxygen Delivery Method Room Air 02/04/23 14:42 BMI result Body Mass Index 21.7 Extrem Other: Left extremity: Mid arm circumference is 10 cm greater than right midarm circumference. Left forearm is 7 centimetre greater than right mid forearm circumference. All pulses are palpable. Assessment & Plan Assessment & Plan (1) Deep vein thrombosis (DVT) of axillary vein: Code(s): I82.A19 - Acute embolism and thrombosis of unspecified axillary vein Plan: Stat ultrasound of the left upper extremity has been requested. Tamoxifen can cause DVTs. Chest x-ray images were personally reviewed by me. Dictation is being completed on 02/06/2023. Ultrasound studies were negative. The swelling could represent a new onset lymphedema. Patient needs follow-up with her primary care provider and a possible referral to her oncologist. A separate note to her primary care provider has been sent. Orders: Orders XR chest 2V 02/04/23 R05.9 - Cough, unspecified US venous duplex UE LT 02/04/23 I82.A19 - Acute embolism and thrombosis of unspecified axillary vein Coding Level of Care Code Est Pt Level 4 (32224) Diagnoses Deep vein thrombosis (DVT) of axillary vein I82.A19
== END 2023-02-04 15:53 | disposition home or self-care (01) ==
PROVIDERS: PCP Internal Medicine; Visit Provider Internal Medicine
DX: I82.A19 Acute embolism and thrombosis of unspecified axillary vein (principal)
CPT/HCPCS: 99214

== ENCOUNTER 2023-02-04 15:12 | Outpatient (REF) | payer MEDICARE, BC, SELFPAY ==
--- NOTE | ~2023-02-04 | XR_ITS ---
EXAMINATION: XR CHEST CLINICAL INFORMATION: Cough COMPARISON: Previous chest x-ray May 2021 TECHNIQUE: 2 views of the chest were obtained. FINDINGS: The cardiac and mediastinal contours are normal. The lungs are clear. No pleural effusion or pneumothorax. There are postsurgical changes to the left breast/axilla and surgical clips. Mild degenerative changes spine. XR/XR chest 2V IMPRESSION: No evidence for acute disease in the chest.
--- NOTE | ~2023-02-04 | US_ITS ---
EXAMINATION: US VENOUS WITH DOPPLER UPPER EXTREMITY, LEFT CLINICAL INFORMATION: Acute embolism thrombosis COMPARISON: Thyroid ultrasound from 05/31/2020 TECHNIQUE: Ultrasound of the upper extremity is performed using compression sonography and color and pulse Doppler flow with assessment of augmentation of flow. There is also imaging and Doppler assessment of the jugular and subclavian veins. Spectral analysis with color-flow imaging is performed. FINDINGS: Respiratory variation, normal compression, and augmented flow are noted throughout the upper extremity including the axillary, brachial, cephalic, basilic, radial and ulnar veins. There is normal flow in the internal jugular and subclavian veins. There is no visible deep or superficial thrombophlebitis. If the patient's symptoms progress, a followup ultrasound in 5 -7 days might be of value to exclude proximal propagation from a nonvisualized distal arm vein. Incidental note is made of known left thyroid nodule, per patient previously biopsied. US/US venous duplex UE LT IMPRESSION: 1. No DVT demonstrated in the left upper extremity. 2. Incidental note is made of known left thyroid nodule, per patient previously biopsied.
== END 2023-02-04 15:13 | disposition home or self-care (01) ==
LOC: HO.HMGCX 15:12
PROVIDERS: PCP Internal Medicine; Visit Provider Internal Medicine
DX: Z86.718 Personal history of other venous thrombosis and embolism (principal); R05.9 Cough, unspecified
CPT/HCPCS: 71046; 93971

== ENCOUNTER 2023-02-04 15:46 | Outpatient (REF) | payer MEDICARE, BC, SELFPAY | END 2023-02-04 15:47 | disposition home or self-care (01) | LOC: HO.HMGCX 15:46 | PROVIDERS: Visit Provider Internal Medicine | DX: Z13.89 Encounter for screening for other disorder (principal) ==

== ENCOUNTER 2023-02-12 12:56 | Outpatient (AMB) | payer MEDICARE, BC, SELFPAY ==
--- NOTE | 2023-02-12 12:58 | A.OFFVIS_ITS ---
Intake Vital Signs 02/12/23 13:08 Height 5 ft 2.5 in Weight 119 lb BMI 21.4 BP 126/58 L Blood Pressure Location Lt brachial Position Sitting Pulse 78 Intake Visit Reasons: left upper arm swelling, post lumpectomy Intake Note: Patient is seen in office for left upper arm swelling, following lumpectomy. Patient c/o: 2 months ago started to notice some left arm swelling, about the same time frame she started taking Tamoxifen, one week ago notice the swelling going down to her hand, itchy 6m. f/u sched: 03/08/23 mm & us: 09/14/22 [place]ander Required: No Accompanied by: Self / Same As Patient Allergies procaine [From Novocain] Allergy (Intermediate, Verified 02/12/23 13:09) Swelling Sulfa (Sulfonamide Antibiotics) Allergy (Intermediate, Verified 02/12/23 13:09) Itching HPI HPI Comments History of Present Illness Details 77-year-old female patient initially nhi changated on 03/09/2020 with a palpable lump in the left breast noted several months prior. The lump is located in the upper outer quadrant and was evaluated by mammogram and ultrasound which revealed a spiculated mass corresponding to the palpable density with skin tenting suggestive of malignancy. She underwent ultrasound- guided core biopsy on 03/10/2020 which revealed invasive carcinoma with ductal and lobular features, grade 1, ER/MT positive, HER2 Jacey negative. She denied a previous history of breast problems or breast surgery. She denied symptoms of breast pain, nipple discharge, or nipple retraction. Her family history is significant for maternal grandmother and cousin with breast cancer. She has 0. She underwent a lumpectomy with needle localization, sentinel node biopsy left axilla on 04/07/2020. Pathology revealed invasive carcinoma with mixed ductal and lobular features, low-grade, 2.4 cm in greatest dimension. Carcinoma is present at the superior margin, 0.2 cm from the posterior margin, 0.2 cm from the anterior margin, ink greater than 1 cm from the inferior, medial, and lateral margins. Atypical lobular hyperplasia was also present. No evidence of ductal or lobular carcinoma in situ. The background parenchyma demonstrates dense fibrosis and calcifications in benign epithelium. [place] lymph node revealed 1 lymph node with extranodal extension. She returned to the OR on 05/09/2020 for wider excision and axillary node dissection. No residual tumor was identified and 0/7 lymph nodes revealed metastatic disease. Oncotype DX determined a recurrence score of 25. She was evaluated by Dr. Kauffman and subsequently underwent 4 cycles of Cytoxan and Taxotere every 3 weeks. She underwent radiation therapy and tolerated this very well. She was placed on letrozole 2.[address] Kauffman but this was recently stopped the tamoxifen due to osteoporosis. She is also on Fosamax for osteoporosis. Her last mammogram of the left side on 09/14/2022 with ultrasound revealed post therapy changes and no mammographic or ultrasound evidence of malignancy (bi rad 2). She is scheduled for a bilateral mammogram on 03/08/2023. Today she presents reporting swelling in the left arm. This began in the upper arm and gradually radiated down the arm into the hand over the past week. She underwent evaluation with ultrasound which was negative for blood clot. She denies any injury to the hand or arm. [facility] Medical History Annual physical exam Ascending aorta enlargement Chest pain Depression Fecal incontinence Goiter, nodular History of alcohol dependence History of shingles Hx: UTI (urinary tract infection) Hyperlipidemia Lab test negative for COVID-19 virus Osteoporosis Seizures Surgical History History of cataract surgery History of colonoscopy History of eye surgery History of foot surgery History of lumpectomy of left breast History of tonsillectomy History of tubal ligation Family History Father Pulmonary fibrosis HTN (hypertension) CAD (coronary artery disease) Mother CAD (coronary artery disease) HTN (hypertension) COPD (chronic obstructive pulmonary disease) Pancreatitis Maternal Grandmother History of breast cancer Family/Other History of breast cancer Sister Mental health disorder Other Substance use disorder Social History Housing: House Are you a primary resident care coordinator to a significant other at home: No Do you presently have visiting nurse or other home services: No Alcohol intake: former Year quit: 1982 Patient Tobacco Use Status: Former Tobacco user Quit Date: 1982 Tobacco use type: Cigarette Years Smoked: 13 +/- Current occupational status: retired Cognitive needs: No Hearing needs: No Vision needs: Yes Female Reproductive History Menstrual Date of Mammogram: 09/14/22 Review of Systems Const Denies chills, Denies fever(s), Denies headache(s) and Reports lethargy ENT Denies dizziness and Denies headache(s) Card Denies chest pain, Denies rapid heart rate, Denies palpitations and Denies slow heart rate Resp Denies chest congestion, Denies cough, Denies pain on inspiration and Denies wheezing GI Denies abdominal pain, Denies bloating, Denies change in stool character, Denies constipation, Denies diarrhea, Denies nausea, Denies vomiting and Denies hematemesis Musc Denies back pain, Denies arthralgias, Denies joint swelling and Denies numbness Skin/Breast Denies breast swelling, Reports breast skin changes, Reports breast pain, Reports breast mass, Reports change in breast shape, Denies change in pigmentation, Denies erythema and Denies rash Neuro Denies dizziness, Denies headache(s) and Denies numbness Psych Denies anxiety and Denies depression Endo Denies palpitations Cesar/Lymph Denies easy bleeding, Denies easy bruising and Denies lymphadenopathy Aller/Immun Denies wheezing Physical Exam Const General: no acute distress Nutritional Appearance: thin Orientation/consciousness: patient oriented x3 Limitations: no limitations HEENT Head: Yes normocephalic and Yes atraumatic Ears: hearing grossly normal bilaterally Chest Other: Left breast with scarring in skin retraction in the upper outer quadrant. No residual radiation changes are noted although the breast is somewhat thickened on the left compared to the right. A palpable area of thickening is noted in the 12 o'clock position which appears mainly scar tissue from the scar retraction however a new mass is also possible. This measures approximately 1 cm in diameter. No enlarged lymph nodes are appreciated. Right breast: No skin change, no nipple discharge, no palpable mass, no enlarged lymph nodes. Resp Effort & Inspection: normal respiratory effort, no cough, no respiratory distress and no stridor GI Inspection: Yes normal to inspection Skin Other: Warm, dry, no rash Neuro General: patient oriented x3 Extrem Other: Left arm with edema involving the entire arm. No palpable nodes noted in the axilla. No redness in the skin or evidence of infection. Assessment & Plan Assessment & Plan (1) Lymphedema of left arm: Code(s): I89.0 - Lymphedema, not elsewhere classified Plan 77-year-old female patient with prior history of left breast carcinoma status post lumpectomy with sentinel node biopsy. Patient now has significant lymphedema involving the left arm which is new since starting to tamoxifen. Although there is no evidence of infection I recommended starting a short course of antibiotics. In addition a referral to the lymphedema clinic will be sent for evaluation and treatment. She will return next month following her mammogram on 03/08/2023 for follow-up breast examination. She is welcome to call sooner for any new concerns. Orders: Referrals Lymphedema Clinic Referral I89.0 - Lymphedema, not elsewhere classified Medications: New cephalexin 500 mg PO Q8H 10 days 30 caps 0RF I89.0 - Lymphedema, not elsewhere classified Coding Level of Care Code Est Pt Level 3 (72036) Diagnoses Lymphedema of left arm I89.0
[2023-02-12 13:08] VITALS: BP 126/58; PULSE 78; BMI 21.4
== END 2023-02-12 13:14 | disposition home or self-care (01) ==
PROVIDERS: PCP Internal Medicine; Visit Provider Surgery
DX: I89.0 Lymphedema, not elsewhere classified (principal)
CPT/HCPCS: 99213

== ENCOUNTER → 2023-02-12 12:56 | Outpatient (BNVA) | payer MEDICARE, BC, SELFPAY | PROVIDERS: PCP Internal Medicine; Visit Provider Surgery | DX: I89.0 Lymphedema, not elsewhere classified (principal) | CPT/HCPCS: 99212 ==

== ENCOUNTER 2023-03-08 10:54 | Outpatient (REF) | payer MEDICARE, BC, SELFPAY ==
--- NOTE | ~2023-03-08 | MM_ITS ---
EXAMINATION: MM DIAGNOSTIC DIGITAL BREAST TOMOSYNTHESIS, BILATERAL CLINICAL INFORMATION: Year 2 status post left lung lumpectomy upper outer left breast for invasive carcinoma. COMPARISON: Mammography: 09/14/2022, 03/07/2022, 03/06/2021. TECHNIQUE: Digital breast tomosynthesis is performed in both the craniocaudal and mediolateral oblique views along with computer-aided detection (CAD). Synthesized 2D images are generated from the tomosynthesis. In addition, spot magnification views of the lumpectomy site were obtained in the CC and ML projections. FINDINGS: The breasts are heterogeneously dense, which may obscure small masses (ACR BI-RADS breast composition Category c). There is been further retraction of tissue at the lumpectomy site upper outer quadrant left breast. There is expected scarring, with surgical derrick present. Similar diffuse trabecular thickening throughout the left breast is perhaps slightly more pronounced than previously, as is skin thickening. These are felt to represent treatment related changes. No suspicious findings. The right breast demonstrates stable parenchymal asymmetries but otherwise shows no evidence of suspicious mass, suspicious calcifications, or developing architectural distortion. MM/MM tomosynthesis diagnostic BI IMPRESSION: There are expected post treatment related changes in the left breast. There is no evidence of suspicious finding. There are no suspicious findings in the right breast. Recommend the patient completed the postoperative three-year protocol in one year. ASSESSMENT: BI-RADS BI-RADS 2 - Benign Findings RECOMMENDATION: 1 year F/U Results were provided to the patient at time of visit by the technologist. This patient's information was entered into a reminder system with a target due date for their next mammogram.
== END 2023-03-08 10:55 | disposition home or self-care (01) ==
LOC: HO.MAMMO 10:54
PROVIDERS: PCP Internal Medicine; Visit Provider Surgery
DX: I89.0 Lymphedema, not elsewhere classified (principal); Z85.3 Personal history of malignant neoplasm of breast; Z98.890 Other specified postprocedural states
CPT/HCPCS: 77062; 77066

== ENCOUNTER → 2023-03-08 11:00 | Outpatient (BNV) | payer MEDICARE, BC, SELFPAY | PROVIDERS: PCP Internal Medicine; Visit Provider Radiology Diagnostic Radiology | DX: Z85.3 Personal history of malignant neoplasm of breast (principal) | CPT/HCPCS: 77062; 77066 ==

== ENCOUNTER 2023-03-14 14:00 | Outpatient (RCR) | payer MEDICARE, BC, SELFPAY ==
--- NOTE | 2023-03-07 15:00 | MHC.OT.EP ---
[address] [phone] Occupational Therapy Plan of Care Patient Name: Patria Zhu Date of Evaluation: 03/07/23 Diagnosis: Left upper extremity lymphedema Pain Location: 3 Left UE ache , discomfort, ( itching a 5/5) Pain Score: 3 Pain Scale Used: Numeric (0 - 10) Aggravating Factors: Sleeping on left side, reaching, making a fist Alleviating Factors: Assessment: 77-year-old female patient with prior history of left breast carcinoma status post lumpectomy with sentinel node biopsy. Patient now presents with stage 11, severe lymphedema involving the left arm which is a recent worsening since starting tamoxifen. Pt also with left facial edema. 02/04/23 venous doppler ultrasound demonstrates no sign of left upper extremity DVT. Pt will benefit from continued education on diagnosis and lymphedema management techniques to improve the health of her left UE tissues and prevent worsening of this condition Pt is moving to [place] in 2 wks. Stage 11 ,severe lymphedema Frequency and Duration: The patient will be seen 4x wk x 2 wks Short Term Goals: Patient will understand lymphedema precautions to decrease the risk of infection and exacerbation of the lymphedema. Patient will develop a tolerance for wearing multi-layer, short-stretch bandages between treatment sessions to facilitate limb decongestion. Patient will experience a decrease in pitting edema which will improve tissue health and decrease the risk of infection. Patient will perform HEP with minimal assistance to help improve lymphatic flow. Patient will perform a self-MLD protocol with minimal assistance to help reduce swelling and thus improve ROM and mobility. Fci Goals: Same as above Treatment Plan: Therapeutic Exercise Home Exercise Program Patient Education Edema Control ADL Training Pt ed in self management including skin care, self MLD , UE decongestion exercises, selection and use of compression garments Electronically Signed By: Angelia Perez OT CHT CLT Please Sign and return to therapist. Thank you once again for your referral.
--- NOTE | 2023-03-14 15:17 | MHC.OT.DC ---
[address] [phone] F: [phone] Occupational Therapy Discharge Note Patient Name: Patria MartinezLacho Provider: David Scott Diagnosis: Left upper extremity lymphedema Date of Surgery: Date of Evaluation: 03/07/23 Date of Discharge: 03/14/23 Treatments to Date: 5 Cancellations to Date: No Shows to Date: Discharge Status: Achieved Goals Improved Function Independent with HEP Discharge Summary: Good improvement in arm and hand edema at each visit. Pt is independent on self bandaging with printed instruction reminders and occasional verbal cue . Pt is ready to progress to a compression sleeve and gauntlet. RX request sent to [facility]. Pt to continue self bandaging until she receives her compression glove and sleeve. Pt is moving to [place] in 4 days and not available for further treatment. [facility] to seen Rx request to MD Electronically Signed By: Angelia Perez OT CHT CLT Reviewed/agree with student documentation: Therapist: Please Sign and return to therapist, thank you for your referral.
== END 2023-08-27 15:42 | disposition home or self-care (01) ==
LOC: HO.OT 14:00
PROVIDERS: PCP Internal Medicine; Visit Provider Surgery
DX: I89.0 Lymphedema, not elsewhere classified (principal)
CPT/HCPCS: 97110; 97140; 97166; 97535

== ENCOUNTER 2023-03-15 11:08 | Outpatient (AMB) | payer MEDICARE, BC, SELFPAY ==
--- NOTE | 2023-03-15 11:29 | A.OFFVIS_ITS ---
Intake Vital Signs 3 03/15/23 11:46 Height 5 ft 2.5 in Weight 120 lb 6 oz BMI 21.7 BP 130/61 Blood Pressure Location Lt brachial Position Sitting Pulse 73 Intake Visit Reasons: 6 mth breast exam Intake Note: Patient is seen in office for 6 month follow up visit, breast exam. Pt c/o: swelling on left arm has gone down, had 5 sessions of PT, breast are doing fine, some redness mm:03/08/23 Youth Care Specialist Required: No Accompanied by: Self / Same As Patient Allergies procaine [From Novocain] Allergy (Intermediate, Verified 03/15/23 11:47) Swelling Sulfa (Sulfonamide Antibiotics) Allergy (Intermediate, Verified 03/15/23 11:47) Itching Medication List - Last Reconciled 03/18/23 by David Scott MD alendronate-vitamin D3 70 mg- 2,800 unit (Fosamax Plus D) 1 tab PO QWEEK atorvastatin (Lipitor) 20 mg PO DAILY 90 days calcium carbonate-vitamin D2 600 mg calcium- 200 unit 1 tab PO DAILY multivitamin 1 tab PO DAILY tamoxifen 20 mg PO DAILY HPI HPI Comments 2 History of Present Illness0 Details 77-year-old female patient initially nhi luated on 03/09/2020 with a palpable lump in the left breast noted several months prior. The lump is located in the upper outer quadrant and was evaluated by mammogram and ultrasound which revealed a spiculated mass corresponding to the palpable density with skin tenting suggestive of malignancy. 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 She denied a previous history of breast problems or breast surgery. She denied symptoms of breast pain, nipple discharge, or nipple retraction. Her family history is significant for maternal grandmother and cousin with breast cancer. She has 0. She underwent a lumpectomy with needle localization, sentinel node biopsy left axilla on 04/07/2020. Pathology revealed invasive carcinoma with mixed ductal and lobular features, low-grade, 2.4 cm in greatest dimension. Carcinoma was present at the superior margin, 0.2 cm from the posterior margin, 0.2 cm from the anterior margin, ink greater than 1 cm from the inferior, medial, and lateral margins. Atypical lobular hyperplasia was also present. No evidence of ductal or lobular carcinoma in situ. The background parenchyma demonstrates dense fibrosis and calcifications in benign epithelium. [place] lymph node revealed 1 lymph node with extranodal extension. She returned to the OR on 05/09/2020 for wider excision and axillary node dissection. No residual tumor was identified and 0/7 lymph nodes revealed metastatic disease. Oncotype DX determined a recurrence score of 25. She was evaluated by Dr. Kauffman and subsequently underwent 4 cycles of Cytoxan and Taxotere every 3 weeks. She underwent radiation therapy and tolerated this very well. She was placed on letrozole 2.[address] Kauffman but this was due to osteoporosis and she was switched to tamoxifen which she is tolerating well. She is also on Fosamax for osteoporosis. Her last mammogram of the left side on 09/14/2022 with ultrasound revealed post therapy changes and no mammographic or ultrasound evidence of malignancy (bi rad 2). She underwent bilateral mammogram on 03/08/2023 which revealed the expected post therapy changes in the left breast with no new suspicious findings. Diagnostic bilateral mammogram is recommended in 1 year. She started occupational therapy for the left arm lymphedema which seems to be helping. She reports that she is moving to [facility] and will be transferring her care to a local physician. She will be moving to be with her family in the [place] area. [facility] Medical History Ascending aorta enlargement Chest pain Annual physical exam Seizures History of alcohol dependence Hx: UTI (urinary tract infection) Lab test negative for COVID-19 virus Fecal incontinence Hyperlipidemia History of shingles Goiter, nodular Depression Osteoporosis Surgical History History of eye surgery History of lumpectomy of left breast History of colonoscopy History of tonsillectomy History of foot surgery History of tubal ligation History of cataract surgery Family History Father Pulmonary fibrosis HTN (hypertension) CAD (coronary artery disease) Mother CAD (coronary artery disease) HTN (hypertension) COPD (chronic obstructive pulmonary disease) Pancreatitis Maternal Grandmother History of breast cancer Family/Other History of breast cancer Sister Mental health disorder Other Substance use disorder Social History Housing: House Are you a primary child care giver to a significant other at home: No Do you presently have visiting nurse or other home services: No Alcohol intake: former Year quit: 1982 Patient Tobacco Use Status: Former Tobacco user Quit Date: 1982 Tobacco use type: Cigarette Years Smoked: 13 +/- Current occupational status: retired Cognitive needs: No Hearing needs: No Vision needs: Yes Review of Systems Const Denies chills, Denies fever(s), Denies headache(s) and Reports lethargy ENT Denies dizziness and Denies headache(s) Card Denies chest pain, Denies rapid heart rate, Denies palpitations and Denies slow heart rate Resp Denies chest congestion, Denies cough, Denies pain on inspiration and Denies wheezing GI Denies abdominal pain, Denies bloating, Denies change in stool character, Denies constipation, Denies diarrhea, Denies nausea, Denies vomiting and Denies hematemesis Musc Denies back pain, Denies arthralgias, Denies joint swelling and Denies numbness Skin/Breast Denies breast swelling, Reports breast skin changes, Reports breast pain, Reports breast mass, Reports change in breast shape, Denies change in pigmentation, Denies erythema and Denies rash Neuro Denies dizziness, Denies headache(s) and Denies numbness Psych Denies anxiety and Denies depression Endo Denies palpitations Cesar/Lymph Denies easy bleeding, Denies easy bruising and Denies lymphadenopathy Aller/Immun Denies wheezing Physical Exam Vital Signs: Last Vital Signs Pulse 73 03/15/23 11:46 BP 130/61 03/15/23 11:46 BMI result Body Mass Index 21.7 Const General: no acute distress Nutritional Appearance: thin Orientation/consciousness: patient oriented x3 Limitations: no limitations HEENT Head: Yes normocephalic and Yes atraumatic Ears: hearing grossly normal bilaterally Chest Other: Left breast with scarring and skin retraction in the upper outer quadrant. No residual radiation changes are noted although the breast is somewhat thickened on the left compared to the right. No enlarged lymph nodes are appreciated. Right breast: No skin change, no nipple discharge, no palpable mass, no enlarged lymph nodes. Chest/axillae images: 2 1. Resp Effort & Inspection: normal respiratory effort, no cough, no respiratory distress and no stridor GI Inspection: Yes normal to inspection Skin Other: Warm, dry, no rash Neuro General: patient oriented x3 Extrem Other: Left arm with edema involving the entire arm. No palpable nodes noted in the axilla. No redness in the skin or evidence of infection. General: Yes no clubbing, cyanosis or edema Assessment & Plan Assessment & Plan (1) Lymphedema of left arm: Code(s): I89.0 - Lymphedema, not elsewhere classified (2) Invasive ductal carcinoma of breast: Comment: s/p lumpectomy,RTx and chemo 2020, f/u with oncology/surgery Code(s): C50.919 - Malignant neoplasm of unspecified site of unspecified female breast Qualifiers: Laterality: left Qualified Code(s): C50.912 - Malignant neoplasm of unspecified site of left female breast Plan 77-year-old female patient with prior history of left breast carcinoma status post lumpectomy with sentinel node biopsy followed by wider excision and axillary node dissection left breast. She subsequently underwent chemotherapy with Dr. Kauffman followed by radiation therapy. She is currently on tamoxifen and tolerating this well. She developed left arm lymphedema is currently undergoing occupational therapy. The OT appears to be helping her symptoms. Her most recent mammogram performed on 03/08/2023 revealed the expected post therapy changes in the left breast with no new suspicious findings. Diagnostic mammogram is recommended in 1 year. As the patient is transferring care to [place], [place], she should follow up as needed. She is welcome to call for any questions. Coding Level of Care Code Est Pt Level 3 (86669) Diagnoses Lymphedema of left arm I89.0 Infiltrating ductal carcinoma of left breast C50.912 Laterality: left
[2023-03-15 11:46] VITALS: BP 130/61; PULSE 73; BMI 21.7
== END 2023-03-15 11:47 | disposition home or self-care (01) ==
PROVIDERS: PCP Internal Medicine; Visit Provider Surgery
DX: C50.912 Malignant neoplasm of unspecified site of left female breast (principal); I89.0 Lymphedema, not elsewhere classified
CPT/HCPCS: 99213

== ENCOUNTER → 2023-03-15 11:08 | Outpatient (BNVA) | payer MEDICARE, BC, SELFPAY | PROVIDERS: PCP Internal Medicine; Visit Provider Surgery | DX: I89.0 Lymphedema, not elsewhere classified (principal); C50.912 Malignant neoplasm of unspecified site of left female breast | CPT/HCPCS: 99212 ==